=== PATIENT | male | born 1990 | race Two or more races ===

== ENCOUNTER 2020-08-22 10:11 | Outpatient (REF) | payer MEDICARE, MEDICAID, SELFPAY ==
[2020-08-22 11:16] LABS: MANUAL DIFF FLAG NO
[2020-08-22 11:31] LABS: Basophils Percent Auto 0.1 % (0-2); Hemoglobin 13.1 g/dl (14.0-18.0); Imm Gran Abs Auto 0.11 X10*3/uL (0.00-0.03); Imm Gran Pct Auto 1.5 % (0.0-0.4); Lymphocytes Absolute Auto 2.3 X10*3/uL (1.2-4.9); Lymphocytes Percent Auto 31.8 % (20-40); Mean Corpuscular Volume 84.4 fL (80-98); Mean Platelet Volume 9.8 fL (9.4-12.4); Monocytes Absolute Auto 0.7 X10*3/uL (0.1-1.2); Monocytes Percent Auto 9.1 % (2-11); Neutrophils Absolute Auto 4.2 X10*3/uL (2.0-8.3); Neutrophils Percent Auto 57.5 % (45-73); Platelet Count 246 X10*3/uL (160-400); Red Blood Count 4.86 X10*6/uL (4.60-5.80); Red Cell Distribution Width 12.2 % (11.0-16.0); White Blood Count 7.3 X10*3/uL (4.8-10.8)
== END 2020-08-22 10:12 | disposition home or self-care (01) ==
LOC: HO.LABR 10:11
PROVIDERS: PCP Internal Medicine; Visit Provider General Practice
DX: F20.9 Schizophrenia, unspecified (principal); Z79.899 Other long term (current) drug therapy
CPT/HCPCS: 36415; 85025

== ENCOUNTER 2020-09-20 10:02 | Outpatient (REF) | payer MEDICARE, MEDICAID, SELFPAY ==
[2020-09-20 10:57] LABS: MANUAL DIFF FLAG NO
[2020-09-20 11:01] LABS: Hematocrit 39.5 % (42-52); Hemoglobin 12.8 g/dl (14.0-18.0); Imm Gran Abs Auto 0.06 X10*3/uL (0.00-0.03); Imm Gran Pct Auto 0.8 % (0.0-0.4); Lymphocytes Absolute Auto 2.2 X10*3/uL (1.2-4.9); Lymphocytes Percent Auto 29.7 % (20-40); Mean Corpuscular HGB Conc 32.4 g/dl (31.0-36.0); Mean Corpuscular Hemoglobin 27.2 pg (27.0-33.0); Mean Platelet Volume 9.7 fL (9.4-12.4); Monocytes Absolute Auto 0.6 X10*3/uL (0.1-1.2); Monocytes Percent Auto 8.5 % (2-11); Neutrophils Absolute Auto 4.4 X10*3/uL (2.0-8.3); Platelet Count 249 X10*3/uL (160-400); Red Cell Distribution Width 12.1 % (11.0-16.0); White Blood Count 7.3 X10*3/uL (4.8-10.8)
== END 2020-09-20 10:03 | disposition home or self-care (01) ==
LOC: HO.LABR 10:02
PROVIDERS: Visit Provider General Practice
DX: F20.9 Schizophrenia, unspecified (principal); Z79.899 Other long term (current) drug therapy
CPT/HCPCS: 36415; 85025

== ENCOUNTER 2020-10-22 11:33 | Outpatient (REF) | payer MEDICARE, MEDICAID, SELFPAY ==
[2020-10-22 12:19] LABS: MANUAL DIFF FLAG NO
[2020-10-22 12:25] LABS: Basophils Percent Auto 0.1 % (0-2); Eosinophils Percent Auto 0.1 % (0-4); Hematocrit 40.1 % (42-52); Hemoglobin 12.9 g/dl (14.0-18.0); Imm Gran Abs Auto 0.15 X10*3/uL (0.00-0.03); Imm Gran Pct Auto 2.1 % (0.0-0.4); Lymphocytes Absolute Auto 2.3 X10*3/uL (1.2-4.9); Lymphocytes Percent Auto 32.6 % (20-40); Mean Corpuscular HGB Conc 32.2 g/dl (31.0-36.0); Mean Corpuscular Volume 83.9 fL (80-98); Mean Platelet Volume 9.9 fL (9.4-12.4); Monocytes Absolute Auto 0.7 X10*3/uL (0.1-1.2); Monocytes Percent Auto 10.1 % (2-11); Neutrophils Absolute Auto 3.9 X10*3/uL (2.0-8.3); Platelet Count 250 X10*3/uL (160-400); Red Blood Count 4.78 X10*6/uL (4.60-5.80); Red Cell Distribution Width 12.1 % (11.0-16.0); White Blood Count 7.1 X10*3/uL (4.8-10.8)
== END 2020-10-22 11:34 | disposition home or self-care (01) ==
LOC: HO.LABR 11:33
PROVIDERS: PCP General Practice; Visit Provider General Practice
DX: F20.9 Schizophrenia, unspecified (principal); Z79.899 Other long term (current) drug therapy
CPT/HCPCS: 36415; 85025

== ENCOUNTER 2020-11-19 12:13 | Outpatient (REF) | payer MEDICARE, MEDICAID, SELFPAY ==
[2020-11-19 12:56] LABS: Baso%MD 0.1 %; Eos%MD 0.1 %; Hematocrit 41.6 % (42-52); Hemoglobin 13.3 g/dl (14.0-18.0); IG%MD 1.9 %; Lymph%MD 35.9 %; Mean Corpuscular Hemoglobin 26.8 pg (27.0-33.0); Mean Corpuscular Volume 83.7 fL (80-98); Mean Platelet Volume 9.4 fL (9.4-12.4); Mono%MD 7.7 %; Neut%MD 54.3 %; Platelet Count 270 X10*3/uL (160-400); Red Blood Count 4.97 X10*6/uL (4.60-5.80); Red Cell Distribution Width 12.2 % (11.0-16.0); White Blood Count 8.4 X10*3/uL (4.8-10.8)
[2020-11-19 13:04] LABS: Ammonia 37 umol/L (13-55)
[2020-11-19 13:24] LABS: Valproate 64.9 mcg/mL (50.0-100.0)
[2020-11-19 13:32] LABS: Alanine Aminotransferase 28 U/L (0-40); Albumin Level 4.5 g/dL (3.5-5.0); Alkaline Phosphatase 52 U/L (39-117); Aspartate Amino Transferase 17 U/L (5-37); Bilirubin Direct < 0.2 mg/dL (0.0-0.5); Bilirubin Total 0.3 mg/dL (0.0-1.0); Total Protein 7.2 g/dL (6.5-8.0)
[2020-11-19 14:38] LABS: Band Neutrophils Percent 1 % (3-5); Lymphocytes Absolute Manual 3.3 X10*3/uL (0.6-4.8); Lymphocytes Percent Manual 39 % (20-40); Monocytes Absolute Manual 0.7 X10*3/uL (0.0-1.2); Monocytes Percent Manual 8 % (2-11); Neutrophils Absolute Manual 4.5 X10*3/uL (2.2-7.9); Neutrophils Percent Manual 52 % (45-73); Platelet Estimate NORMAL (NORMAL); Platelet Morphology Comment NORMAL; RBC Morphology NORMAL
== END 2020-11-19 12:14 | disposition home or self-care (01) ==
LOC: HO.LABR 12:13
PROVIDERS: Visit Provider Psychiatry & Neurology Child & Adolescent Psychiatry
DX: F20.9 Schizophrenia, unspecified (principal)
CPT/HCPCS: 36415; 80076; 80164; 82140; 85007; 85027

== ENCOUNTER 2020-11-27 12:41 | Outpatient (REF) | payer MEDICARE, MEDICAID, SELFPAY ==
[2020-11-27 13:22] LABS: Ammonia 55 umol/L (13-55)
[2020-11-27 13:30] LABS: Alanine Aminotransferase 19 U/L (0-40); Albumin Level 4.5 g/dL (3.5-5.0); Alkaline Phosphatase 48 U/L (39-117); Aspartate Amino Transferase 15 U/L (5-37); Bilirubin Direct < 0.2 mg/dL (0.0-0.5); Bilirubin Total 0.3 mg/dL (0.0-1.0)
== END 2020-11-27 12:42 | disposition home or self-care (01) ==
LOC: HO.LAB 12:41
PROVIDERS: Visit Provider General Practice
DX: F20.9 Schizophrenia, unspecified (principal); Z79.899 Other long term (current) drug therapy
CPT/HCPCS: 36415; 80076; 80164; 82140

== ENCOUNTER 2020-12-17 09:46 | Outpatient (REF) | payer MEDICARE, MEDICAID, SELFPAY ==
[2020-12-17 10:39] LABS: MANUAL DIFF FLAG NO
[2020-12-17 10:42] LABS: Basophils Percent Auto 0.1 % (0-2); Hematocrit 40.4 % (42-52); Imm Gran Abs Auto 0.12 X10*3/uL (0.00-0.03); Imm Gran Pct Auto 1.7 % (0.0-0.4); Lymphocytes Absolute Auto 2.5 X10*3/uL (1.2-4.9); Lymphocytes Percent Auto 34.4 % (20-40); Mean Corpuscular HGB Conc 32.2 g/dl (31.0-36.0); Mean Corpuscular Hemoglobin 26.9 pg (27.0-33.0); Mean Corpuscular Volume 83.5 fL (80-98); Mean Platelet Volume 9.8 fL (9.4-12.4); Monocytes Absolute Auto 0.6 X10*3/uL (0.1-1.2); Monocytes Percent Auto 7.8 % (2-11); Platelet Count 251 X10*3/uL (160-400); Red Blood Count 4.84 X10*6/uL (4.60-5.80); Red Cell Distribution Width 12.1 % (11.0-16.0); White Blood Count 7.2 X10*3/uL (4.8-10.8)
== END 2020-12-17 09:47 | disposition home or self-care (01) ==
LOC: HO.LABR 09:46
PROVIDERS: Visit Provider General Practice
DX: F20.9 Schizophrenia, unspecified (principal); Z79.899 Other long term (current) drug therapy
CPT/HCPCS: 36415; 85025

== ENCOUNTER 2021-01-15 10:47 | Outpatient (REF) | payer MEDICARE, MEDICAID, SELFPAY ==
[2021-01-15 11:42] LABS: MANUAL DIFF FLAG NO
[2021-01-15 11:53] LABS: Basophils Percent Auto 0.3 % (0-2); Hematocrit 40.8 % (42-52); Hemoglobin 13.2 g/dl (14.0-18.0); Imm Gran Abs Auto 0.13 X10*3/uL (0.00-0.03); Imm Gran Pct Auto 1.9 % (0.0-0.4); Lymphocytes Absolute Auto 2.1 X10*3/uL (1.2-4.9); Lymphocytes Percent Auto 30.8 % (20-40); Mean Corpuscular HGB Conc 32.4 g/dl (31.0-36.0); Mean Corpuscular Hemoglobin 26.8 pg (27.0-33.0); Mean Corpuscular Volume 82.9 fL (80-98); Mean Platelet Volume 9.7 fL (9.4-12.4); Monocytes Absolute Auto 0.6 X10*3/uL (0.1-1.2); Monocytes Percent Auto 8.2 % (2-11); Neutrophils Absolute Auto 4.1 X10*3/uL (2.0-8.3); Neutrophils Percent Auto 58.8 % (45-73); Platelet Count 266 X10*3/uL (160-400); Red Blood Count 4.92 X10*6/uL (4.60-5.80); Red Cell Distribution Width 12.3 % (11.0-16.0); White Blood Count 6.9 X10*3/uL (4.8-10.8)
== END 2021-01-15 10:48 | disposition home or self-care (01) ==
LOC: HO.LABR 10:47
PROVIDERS: PCP General Practice; Visit Provider General Practice
DX: F20.9 Schizophrenia, unspecified (principal); Z79.899 Other long term (current) drug therapy
CPT/HCPCS: 36415; 85025

== ENCOUNTER 2021-02-11 09:55 | Outpatient (REF) | payer MEDICARE, MEDICAID, SELFPAY ==
[2021-02-11 10:54] LABS: MANUAL DIFF FLAG NO
[2021-02-11 11:11] LABS: Basophils Percent Auto 0.1 % (0-2); Hematocrit 42.3 % (42-52); Hemoglobin 13.5 g/dl (14.0-18.0); Imm Gran Pct Auto 1.3 % (0.0-0.4); Lymphocytes Absolute Auto 2.7 X10*3/uL (1.2-4.9); Lymphocytes Percent Auto 33.8 % (20-40); Mean Corpuscular HGB Conc 31.9 g/dl (31.0-36.0); Mean Corpuscular Hemoglobin 26.7 pg (27.0-33.0); Mean Corpuscular Volume 83.6 fL (80-98); Mean Platelet Volume 9.8 fL (9.4-12.4); Monocytes Absolute Auto 0.7 X10*3/uL (0.1-1.2); Neutrophils Absolute Auto 4.4 X10*3/uL (2.0-8.3); Neutrophils Percent Auto 55.8 % (45-73); Platelet Count 279 X10*3/uL (160-400); Red Blood Count 5.06 X10*6/uL (4.60-5.80); Red Cell Distribution Width 12.4 % (11.0-16.0); White Blood Count 7.9 X10*3/uL (4.8-10.8)
== END 2021-02-11 09:56 | disposition home or self-care (01) ==
LOC: HO.LABR 09:55
PROVIDERS: PCP General Practice; Visit Provider General Practice
DX: F20.9 Schizophrenia, unspecified (principal); Z79.899 Other long term (current) drug therapy
CPT/HCPCS: 36415; 85025

== ENCOUNTER 2021-03-11 10:06 | Outpatient (REF) | payer MEDICARE, MEDICAID, SELFPAY ==
[2021-03-11 11:06] LABS: MANUAL DIFF FLAG NO
[2021-03-11 11:13] LABS: Basophils Percent Auto 0.1 % (0-2); Hemoglobin 12.9 g/dl (14.0-18.0); Imm Gran Abs Auto 0.11 X10*3/uL (0.00-0.03); Imm Gran Pct Auto 1.5 % (0.0-0.4); Lymphocytes Absolute Auto 2.4 X10*3/uL (1.2-4.9); Lymphocytes Percent Auto 33.5 % (20-40); Mean Corpuscular HGB Conc 31.5 g/dl (31.0-36.0); Mean Corpuscular Hemoglobin 26.4 pg (27.0-33.0); Mean Corpuscular Volume 83.8 fL (80-98); Mean Platelet Volume 9.6 fL (9.4-12.4); Monocytes Absolute Auto 0.6 X10*3/uL (0.1-1.2); Monocytes Percent Auto 8.1 % (2-11); Neutrophils Percent Auto 56.8 % (45-73); Platelet Count 264 X10*3/uL (160-400); Red Blood Count 4.89 X10*6/uL (4.60-5.80); Red Cell Distribution Width 12.6 % (11.0-16.0); White Blood Count 7.1 X10*3/uL (4.8-10.8)
== END 2021-03-11 10:07 | disposition home or self-care (01) ==
LOC: HO.LABR 10:06
PROVIDERS: PCP General Practice; Visit Provider General Practice
DX: F20.9 Schizophrenia, unspecified (principal); Z79.899 Other long term (current) drug therapy
CPT/HCPCS: 36415; 85025

== ENCOUNTER 2021-04-07 10:39 | Outpatient (REF) | payer MEDICARE, MEDICAID, SELFPAY ==
[2021-04-07 11:33] LABS: MANUAL DIFF FLAG NO
[2021-04-07 11:37] LABS: Basophils Percent Auto 0.1 % (0-2); Hemoglobin 13.2 g/dl (14.0-18.0); Imm Gran Abs Auto 0.17 X10*3/uL (0.00-0.03); Imm Gran Pct Auto 2.3 % (0.0-0.4); Lymphocytes Absolute Auto 2.7 X10*3/uL (1.2-4.9); Lymphocytes Percent Auto 35.4 % (20-40); Mean Corpuscular HGB Conc 32.2 g/dl (31.0-36.0); Mean Corpuscular Volume 83.8 fL (80-98); Mean Platelet Volume 9.7 fL (9.4-12.4); Monocytes Absolute Auto 0.7 X10*3/uL (0.1-1.2); Monocytes Percent Auto 8.6 % (2-11); Neutrophils Absolute Auto 4.1 X10*3/uL (2.0-8.3); Neutrophils Percent Auto 53.6 % (45-73); Platelet Count 260 X10*3/uL (160-400); Red Blood Count 4.89 X10*6/uL (4.60-5.80); Red Cell Distribution Width 12.4 % (11.0-16.0); White Blood Count 7.6 X10*3/uL (4.8-10.8)
== END 2021-04-07 10:40 | disposition home or self-care (01) ==
LOC: HO.LABR 10:39
PROVIDERS: PCP General Practice; Visit Provider General Practice
DX: F20.9 Schizophrenia, unspecified (principal); Z79.899 Other long term (current) drug therapy
CPT/HCPCS: 36415; 85025

== ENCOUNTER 2021-05-07 10:31 | Outpatient (REF) | payer MEDICARE, MEDICAID, SELFPAY ==
[2021-05-07 11:43] LABS: MANUAL DIFF FLAG NO
[2021-05-07 12:04] LABS: Basophils Percent Auto 0.1 % (0-2); Eosinophils Percent Auto 0.1 % (0-4); Hematocrit 41.3 % (42-52); Hemoglobin 13.3 g/dl (14.0-18.0); Imm Gran Abs Auto 0.12 X10*3/uL (0.00-0.03); Imm Gran Pct Auto 1.7 % (0.0-0.4); Lymphocytes Absolute Auto 2.6 X10*3/uL (1.2-4.9); Lymphocytes Percent Auto 35.9 % (20-40); Mean Corpuscular HGB Conc 32.2 g/dl (31.0-36.0); Mean Corpuscular Hemoglobin 26.7 pg (27.0-33.0); Mean Corpuscular Volume 82.9 fL (80-98); Mean Platelet Volume 9.6 fL (9.4-12.4); Monocytes Absolute Auto 0.7 X10*3/uL (0.1-1.2); Monocytes Percent Auto 9.4 % (2-11); Neutrophils Absolute Auto 3.8 X10*3/uL (2.0-8.3); Neutrophils Percent Auto 52.8 % (45-73); Platelet Count 261 X10*3/uL (160-400); Red Blood Count 4.98 X10*6/uL (4.60-5.80); Red Cell Distribution Width 12.3 % (11.0-16.0); White Blood Count 7.2 X10*3/uL (4.8-10.8)
[2021-05-11 15:11] LABS: Clozapine (Clozaril) 466 mcg/L; Norclozapine 162 mcg/L (25-400)
== END 2021-05-07 10:32 | disposition home or self-care (01) ==
LOC: HO.LABR 10:31
PROVIDERS: Visit Provider General Practice
DX: F20.9 Schizophrenia, unspecified (principal); Z79.899 Other long term (current) drug therapy
CPT/HCPCS: 36415; 80159; 85025

== ENCOUNTER 2021-05-29 13:15 | Outpatient (REF) | payer MEDICARE, MEDICAID, SELFPAY ==
[2021-05-29 13:45] LABS: MANUAL DIFF FLAG NO
[2021-05-29 14:02] LABS: Basophils Percent Auto 0.1 % (0-2); Eosinophils Percent Auto 0.1 % (0-4); Hematocrit 40.3 % (42-52); Hemoglobin 12.9 g/dl (14.0-18.0); Imm Gran Abs Auto 0.12 X10*3/uL (0.00-0.03); Imm Gran Pct Auto 1.6 % (0.0-0.4); Lymphocytes Absolute Auto 2.5 X10*3/uL (1.2-4.9); Lymphocytes Percent Auto 33.8 % (20-40); Mean Corpuscular Hemoglobin 26.5 pg (27.0-33.0); Mean Corpuscular Volume 82.9 fL (80-98); Mean Platelet Volume 9.7 fL (9.4-12.4); Monocytes Absolute Auto 0.6 X10*3/uL (0.1-1.2); Monocytes Percent Auto 7.6 % (2-11); Neutrophils Absolute Auto 4.3 X10*3/uL (2.0-8.3); Neutrophils Percent Auto 56.8 % (45-73); Platelet Count 262 X10*3/uL (160-400); Red Blood Count 4.86 X10*6/uL (4.60-5.80); Red Cell Distribution Width 12.2 % (11.0-16.0); White Blood Count 7.5 X10*3/uL (4.8-10.8)
== END 2021-05-29 13:16 | disposition home or self-care (01) ==
LOC: HO.LABR 13:15
PROVIDERS: PCP Internal Medicine; Visit Provider General Practice
DX: E20.9 Hypoparathyroidism, unspecified (principal); Z79.899 Other long term (current) drug therapy
CPT/HCPCS: 36415; 85025

== ENCOUNTER 2021-06-26 10:57 | Outpatient (REF) | payer MEDICARE, MEDICAID, SELFPAY ==
[2021-06-26 11:22] LABS: MANUAL DIFF FLAG NO
[2021-06-26 11:33] LABS: Basophils Percent Auto 0.2 % (0-2); Hematocrit 37.6 % (42-52); Hemoglobin 12.3 g/dl (14.0-18.0); Imm Gran Abs Auto 0.08 X10*3/uL (0.00-0.03); Imm Gran Pct Auto 1.2 % (0.0-0.4); Lymphocytes Absolute Auto 2.1 X10*3/uL (1.2-4.9); Lymphocytes Percent Auto 32.3 % (20-40); Mean Corpuscular HGB Conc 32.7 g/dl (31.0-36.0); Mean Corpuscular Volume 82.6 fL (80-98); Mean Platelet Volume 9.4 fL (9.4-12.4); Monocytes Absolute Auto 0.5 X10*3/uL (0.1-1.2); Monocytes Percent Auto 8.2 % (2-11); Neutrophils Absolute Auto 3.8 X10*3/uL (2.0-8.3); Neutrophils Percent Auto 58.1 % (45-73); Platelet Count 239 X10*3/uL (160-400); Red Blood Count 4.55 X10*6/uL (4.60-5.80); Red Cell Distribution Width 12.4 % (11.0-16.0); White Blood Count 6.5 X10*3/uL (4.8-10.8)
[2021-07-01 07:52] LABS: Clozapine (Clozaril) 461 mcg/L; Norclozapine 150 mcg/L (25-400)
== END 2021-06-26 10:58 | disposition home or self-care (01) ==
LOC: HO.LABR 10:57
PROVIDERS: Visit Provider General Practice
DX: F20.9 Schizophrenia, unspecified (principal); Z79.899 Other long term (current) drug therapy
CPT/HCPCS: 36415; 80159; 85025

== ENCOUNTER 2021-07-25 09:46 | Outpatient (REF) | payer MEDICARE, MEDICAID, SELFPAY ==
[2021-07-25 16:03] LABS: MANUAL DIFF FLAG NO
[2021-07-25 16:13] LABS: Basophils Percent Auto 0.1 % (0-2); Hematocrit 40.4 % (42-52); Imm Gran Abs Auto 0.13 X10*3/uL (0.00-0.03); Imm Gran Pct Auto 1.4 % (0.0-0.4); Lymphocytes Absolute Auto 2.5 X10*3/uL (1.2-4.9); Lymphocytes Percent Auto 25.8 % (20-40); Mean Corpuscular HGB Conc 32.2 g/dl (31.0-36.0); Mean Corpuscular Hemoglobin 26.3 pg (27.0-33.0); Mean Corpuscular Volume 81.8 fL (80-98); Mean Platelet Volume 9.2 fL (9.4-12.4); Monocytes Absolute Auto 0.9 X10*3/uL (0.1-1.2); Monocytes Percent Auto 9.3 % (2-11); Neutrophils Percent Auto 63.4 % (45-73); Platelet Count 276 X10*3/uL (160-400); Red Blood Count 4.94 X10*6/uL (4.60-5.80); Red Cell Distribution Width 12.4 % (11.0-16.0); White Blood Count 9.5 X10*3/uL (4.8-10.8)
== END 2021-07-25 09:47 | disposition home or self-care (01) ==
LOC: HO.LABR 09:46
PROVIDERS: PCP General Practice; Visit Provider General Practice
DX: F20.9 Schizophrenia, unspecified (principal); Z79.899 Other long term (current) drug therapy
CPT/HCPCS: 36415; 85025

== ENCOUNTER 2021-08-20 11:44 | Outpatient (REF) | payer MEDICARE, MEDICAID, SELFPAY ==
[2021-08-20 12:04] LABS: MANUAL DIFF FLAG NO
[2021-08-20 12:21] LABS: Basophils Percent Auto 0.1 % (0-2); Eosinophils Percent Auto 0.1 % (0-4); Hematocrit 42.3 % (42-52); Hemoglobin 13.5 g/dl (14.0-18.0); Imm Gran Abs Auto 0.09 X10*3/uL (0.00-0.03); Imm Gran Pct Auto 1.3 % (0.0-0.4); Lymphocytes Absolute Auto 2.2 X10*3/uL (1.2-4.9); Lymphocytes Percent Auto 31.9 % (20-40); Mean Corpuscular HGB Conc 31.9 g/dl (31.0-36.0); Mean Corpuscular Hemoglobin 26.1 pg (27.0-33.0); Mean Corpuscular Volume 81.7 fL (80-98); Mean Platelet Volume 9.5 fL (9.4-12.4); Monocytes Absolute Auto 0.6 X10*3/uL (0.1-1.2); Monocytes Percent Auto 8.3 % (2-11); Neutrophils Absolute Auto 4.1 X10*3/uL (2.0-8.3); Neutrophils Percent Auto 58.3 % (45-73); Platelet Count 255 X10*3/uL (160-400); Red Blood Count 5.18 X10*6/uL (4.60-5.80); Red Cell Distribution Width 12.3 % (11.0-16.0)
== END 2021-08-20 11:45 | disposition home or self-care (01) ==
LOC: HO.LABR 11:44
PROVIDERS: PCP General Practice; Visit Provider General Practice
DX: F20.9 Schizophrenia, unspecified (principal); Z79.899 Other long term (current) drug therapy
CPT/HCPCS: 36415; 85025

== ENCOUNTER 2021-08-26 12:42 | Outpatient (REF) | payer MEDICARE, MEDICAID, SELFPAY ==
[2021-08-26 13:10] LABS: MANUAL DIFF FLAG NO
[2021-08-26 13:30] LABS: Basophils Percent Auto 0.1 % (0-2); Eosinophils Percent Auto 0.1 % (0-4); Hematocrit 40.5 % (42-52); Hemoglobin 13.4 g/dl (14.0-18.0); Imm Gran Abs Auto 0.17 X10*3/uL (0.00-0.03); Lymphocytes Absolute Auto 2.6 X10*3/uL (1.2-4.9); Lymphocytes Percent Auto 31.6 % (20-40); Mean Corpuscular HGB Conc 33.1 g/dl (31.0-36.0); Mean Corpuscular Hemoglobin 26.6 pg (27.0-33.0); Mean Corpuscular Volume 80.4 fL (80-98); Mean Platelet Volume 9.8 fL (9.4-12.4); Monocytes Absolute Auto 0.7 X10*3/uL (0.1-1.2); Monocytes Percent Auto 8.1 % (2-11); Neutrophils Absolute Auto 4.9 X10*3/uL (2.0-8.3); Neutrophils Percent Auto 58.1 % (45-73); Platelet Count 266 X10*3/uL (160-400); Red Blood Count 5.04 X10*6/uL (4.60-5.80); Red Cell Distribution Width 12.5 % (11.0-16.0); White Blood Count 8.4 X10*3/uL (4.8-10.8)
== END 2021-08-26 12:43 | disposition home or self-care (01) ==
LOC: HO.LABR 12:42
PROVIDERS: Visit Provider General Practice
DX: F20.9 Schizophrenia, unspecified (principal); Z79.899 Other long term (current) drug therapy
CPT/HCPCS: 36415; 85025

== ENCOUNTER 2021-09-23 09:58 | Outpatient (REF) | payer MEDICARE, MEDICAID, SELFPAY ==
[2021-09-23 10:08] LABS: MANUAL DIFF FLAG NO
[2021-09-23 10:26] LABS: Basophils Percent Auto 0.1 % (0-2); Hematocrit 40.5 % (42.0-52.0); Imm Gran Abs Auto 0.14 X10*3/uL (0.00-0.03); Imm Gran Pct Auto 1.8 % (0.0-0.4); Lymphocytes Absolute Auto 2.3 X10*3/uL (1.2-4.9); Lymphocytes Percent Auto 30.1 % (20-40); Mean Corpuscular HGB Conc 32.1 g/dl (31.0-36.0); Mean Corpuscular Hemoglobin 26.7 pg (27.0-33.0); Mean Corpuscular Volume 83.3 fL (80.0-98.0); Mean Platelet Volume 9.5 fL (9.4-12.4); Monocytes Absolute Auto 0.6 X10*3/uL (0.1-1.2); Monocytes Percent Auto 8.1 % (2-11); Neutrophils Absolute Auto 4.7 x10*3/uL (2.0-8.3); Neutrophils Percent Auto 59.9 % (45-73); Platelet Count 265 X10*3/uL (160-400); Red Blood Count 4.86 X10*6/uL (4.60-5.80); Red Cell Distribution Width 12.8 % (11.0-16.0); White Blood Count 7.8 X10*3/uL (4.8-10.8)
== END 2021-09-23 09:59 | disposition home or self-care (01) ==
LOC: HO.LABR 09:58
PROVIDERS: Visit Provider General Practice
DX: F20.9 Schizophrenia, unspecified (principal); Z79.899 Other long term (current) drug therapy
CPT/HCPCS: 36415; 85025

== ENCOUNTER 2021-10-18 10:49 | Outpatient (REF) | payer MEDICARE, MEDICAID, SELFPAY ==
[2021-10-18 10:59] LABS: MANUAL DIFF FLAG NO
[2021-10-18 11:49] LABS: Basophils Percent Auto 0.1 % (0-2); Eosinophils Percent Auto 0.1 % (0-4); Hemoglobin 13.4 g/dl (14.0-18.0); Imm Gran Abs Auto 0.16 X10*3/uL (0.00-0.03); Imm Gran Pct Auto 2.2 % (0.0-0.4); Lymphocytes Absolute Auto 2.5 X10*3/uL (1.2-4.9); Lymphocytes Percent Auto 34.4 % (20-40); Mean Corpuscular HGB Conc 31.9 g/dl (31.0-36.0); Mean Corpuscular Hemoglobin 26.9 pg (27.0-33.0); Mean Corpuscular Volume 84.2 fL (80.0-98.0); Mean Platelet Volume 9.6 fL (9.4-12.4); Monocytes Absolute Auto 0.6 X10*3/uL (0.1-1.2); Monocytes Percent Auto 7.6 % (2-11); Neutrophils Absolute Auto 4.1 x10*3/uL (2.0-8.3); Neutrophils Percent Auto 55.6 % (45-73); Platelet Count 274 X10*3/uL (160-400); Red Blood Count 4.99 X10*6/uL (4.60-5.80); Red Cell Distribution Width 12.4 % (11.0-16.0); White Blood Count 7.4 X10*3/uL (4.8-10.8)
== END 2021-10-18 10:50 | disposition home or self-care (01) ==
LOC: HO.LABR 10:49
PROVIDERS: PCP General Practice; Visit Provider General Practice
DX: F20.9 Schizophrenia, unspecified (principal); Z79.899 Other long term (current) drug therapy
CPT/HCPCS: 36415; 85025

== ENCOUNTER 2021-11-06 10:42 | Outpatient (REF) | payer MEDICARE, MEDICAID, SELFPAY ==
[2021-11-06 11:01] LABS: MANUAL DIFF FLAG NO
[2021-11-06 11:33] LABS: Basophils Percent Auto 0.1 % (0-2); Eosinophils Percent Auto 0.1 % (0-4); Hematocrit 41.5 % (42.0-52.0); Hemoglobin 13.3 g/dl (14.0-18.0); Imm Gran Abs Auto 0.14 X10*3/uL (0.00-0.03); Imm Gran Pct Auto 1.8 % (0.0-0.4); Lymphocytes Absolute Auto 1.4 X10*3/uL (1.2-4.9); Mean Corpuscular Hemoglobin 26.9 pg (27.0-33.0); Mean Corpuscular Volume 83.8 fL (80.0-98.0); Mean Platelet Volume 9.4 fL (9.4-12.4); Monocytes Absolute Auto 0.9 X10*3/uL (0.1-1.2); Monocytes Percent Auto 11.1 % (2-11); Neutrophils Absolute Auto 5.6 x10*3/uL (2.0-8.3); Neutrophils Percent Auto 69.9 % (45-73); Platelet Count 221 X10*3/uL (160-400); Red Blood Count 4.95 X10*6/uL (4.60-5.80); Red Cell Distribution Width 12.4 % (11.0-16.0)
== END 2021-11-06 10:43 | disposition home or self-care (01) ==
LOC: HO.LABR 10:42
PROVIDERS: PCP General Practice; Visit Provider General Practice
DX: F20.9 Schizophrenia, unspecified (principal); Z79.899 Other long term (current) drug therapy
CPT/HCPCS: 36415; 85025

== ENCOUNTER 2021-11-21 10:42 | Outpatient (REF) | payer MEDICARE, MEDICAID, SELFPAY ==
[2021-11-21 10:58] LABS: MANUAL DIFF FLAG NO
[2021-11-21 11:28] LABS: Basophils Percent Auto 0.1 % (0-2); Eosinophils Percent Auto 0.1 % (0-4); Hematocrit 41.9 % (42.0-52.0); Hemoglobin 13.4 g/dl (14.0-18.0); Imm Gran Abs Auto 0.13 X10*3/uL (0.00-0.03); Imm Gran Pct Auto 1.6 % (0.0-0.4); Lymphocytes Absolute Auto 2.6 X10*3/uL (1.2-4.9); Lymphocytes Percent Auto 31.6 % (20-40); Mean Corpuscular Volume 84.3 fL (80.0-98.0); Mean Platelet Volume 9.5 fL (9.4-12.4); Monocytes Absolute Auto 0.8 X10*3/uL (0.1-1.2); Monocytes Percent Auto 9.6 % (2-11); Neutrophils Absolute Auto 4.7 x10*3/uL (2.0-8.3); Platelet Count 336 X10*3/uL (160-400); Red Blood Count 4.97 X10*6/uL (4.60-5.80); Red Cell Distribution Width 12.2 % (11.0-16.0); White Blood Count 8.2 X10*3/uL (4.8-10.8)
== END 2021-11-21 10:43 | disposition home or self-care (01) ==
LOC: HO.LABR 10:42
PROVIDERS: PCP General Practice; Visit Provider General Practice
DX: F20.9 Schizophrenia, unspecified (principal); Z79.899 Other long term (current) drug therapy
CPT/HCPCS: 36415; 85025

== ENCOUNTER 2021-12-16 09:57 | Outpatient (REF) | payer MEDICARE, MEDICAID, SELFPAY ==
[2021-12-16 10:22] LABS: MANUAL DIFF FLAG NO
[2021-12-16 11:17] LABS: Basophils Percent Auto 0.2 % (0-2); Eosinophils Percent Auto 0.2 % (0-4); Hemoglobin 12.8 g/dl (14.0-18.0); Imm Gran Abs Auto 0.32 X10*3/uL (0.00-0.03); Imm Gran Pct Auto 3.8 % (0.0-0.4); Lymphocytes Absolute Auto 2.7 X10*3/uL (1.2-4.9); Lymphocytes Percent Auto 31.6 % (20-40); Mean Corpuscular Hemoglobin 27.1 pg (27.0-33.0); Mean Corpuscular Volume 84.6 fL (80.0-98.0); Mean Platelet Volume 9.8 fL (9.4-12.4); Monocytes Absolute Auto 0.8 X10*3/uL (0.1-1.2); Monocytes Percent Auto 9.7 % (2-11); Neutrophils Absolute Auto 4.6 x10*3/uL (2.0-8.3); Neutrophils Percent Auto 54.5 % (45-73); Platelet Count 268 X10*3/uL (160-400); Red Blood Count 4.73 X10*6/uL (4.60-5.80); Red Cell Distribution Width 12.6 % (11.0-16.0); White Blood Count 8.5 X10*3/uL (4.8-10.8)
== END 2021-12-16 09:58 | disposition home or self-care (01) ==
LOC: HO.LABR 09:57
PROVIDERS: PCP General Practice; Visit Provider General Practice
DX: F20.9 Schizophrenia, unspecified (principal); Z79.899 Other long term (current) drug therapy
CPT/HCPCS: 36415; 85025

== ENCOUNTER 2022-01-14 10:21 | Outpatient (REF) | payer MEDICARE, MEDICAID, SELFPAY ==
[2022-01-14 10:42] LABS: MANUAL DIFF FLAG NO
[2022-01-14 11:02] LABS: Basophils Percent Auto 0.3 % (0-2); Eosinophils Percent Auto 0.1 % (0-4); Hematocrit 40.3 % (42.0-52.0); Hemoglobin 12.7 g/dl (14.0-18.0); Imm Gran Abs Auto 0.09 X10*3/uL (0.00-0.03); Imm Gran Pct Auto 1.2 % (0.0-0.4); Lymphocytes Absolute Auto 2.5 X10*3/uL (1.2-4.9); Lymphocytes Percent Auto 33.2 % (20-40); Mean Corpuscular HGB Conc 31.5 g/dl (31.0-36.0); Mean Corpuscular Hemoglobin 26.7 pg (27.0-33.0); Mean Corpuscular Volume 84.7 fL (80.0-98.0); Mean Platelet Volume 9.4 fL (9.4-12.4); Monocytes Absolute Auto 0.6 X10*3/uL (0.1-1.2); Monocytes Percent Auto 7.8 % (2-11); Neutrophils Absolute Auto 4.4 x10*3/uL (2.0-8.3); Neutrophils Percent Auto 57.4 % (45-73); Platelet Count 273 X10*3/uL (160-400); Red Blood Count 4.76 X10*6/uL (4.60-5.80); Red Cell Distribution Width 12.3 % (11.0-16.0); White Blood Count 7.7 X10*3/uL (4.8-10.8)
== END 2022-01-14 10:22 | disposition home or self-care (01) ==
LOC: HO.LABR 10:21
PROVIDERS: PCP General Practice; Visit Provider General Practice
DX: F20.9 Schizophrenia, unspecified (principal); Z79.899 Other long term (current) drug therapy
CPT/HCPCS: 36415; 85025

== ENCOUNTER 2022-02-04 10:36 | Outpatient (REF) | payer MEDICARE, MEDICAID, SELFPAY ==
[2022-02-04 11:01] LABS: MANUAL DIFF FLAG NO
[2022-02-04 11:59] LABS: Basophils Percent Auto 0.3 % (0-2); Eosinophils Percent Auto 0.3 % (0-4); Hematocrit 41.3 % (42.0-52.0); Hemoglobin 13.1 g/dl (14.0-18.0); Imm Gran Abs Auto 0.08 X10*3/uL (0.00-0.03); Imm Gran Pct Auto 1.1 % (0.0-0.4); Lymphocytes Absolute Auto 2.7 X10*3/uL (1.2-4.9); Lymphocytes Percent Auto 38.1 % (20-40); Mean Corpuscular HGB Conc 31.7 g/dl (31.0-36.0); Mean Corpuscular Hemoglobin 26.6 pg (27.0-33.0); Mean Corpuscular Volume 83.9 fL (80.0-98.0); Mean Platelet Volume 9.8 fL (9.4-12.4); Monocytes Absolute Auto 0.5 X10*3/uL (0.1-1.2); Monocytes Percent Auto 6.5 % (2-11); Neutrophils Absolute Auto 3.9 x10*3/uL (2.0-8.3); Neutrophils Percent Auto 53.7 % (45-73); Platelet Count 271 X10*3/uL (160-400); Red Blood Count 4.92 X10*6/uL (4.60-5.80); Red Cell Distribution Width 12.2 % (11.0-16.0); White Blood Count 7.2 X10*3/uL (4.8-10.8)
== END 2022-02-04 10:37 | disposition home or self-care (01) ==
LOC: HO.LABR 10:36
PROVIDERS: PCP General Practice; Visit Provider General Practice
DX: F20.9 Schizophrenia, unspecified (principal); Z79.899 Other long term (current) drug therapy
CPT/HCPCS: 36415; 85025

== ENCOUNTER 2022-02-11 13:46 | Outpatient (REF) | payer MEDICARE, MEDICAID, SELFPAY ==
[2022-02-11 13:56] LABS: MANUAL DIFF FLAG NO
[2022-02-11 14:57] LABS: Basophils Percent Auto 0.2 % (0-2); Eosinophils Percent Auto 0.2 % (0-4); Hematocrit 41.1 % (42.0-52.0); Hemoglobin 13.1 g/dl (14.0-18.0); Imm Gran Abs Auto 0.08 X10*3/uL (0.00-0.03); Imm Gran Pct Auto 0.9 % (0.0-0.4); Lymphocytes Absolute Auto 2.7 X10*3/uL (1.2-4.9); Lymphocytes Percent Auto 31.9 % (20-40); Mean Corpuscular HGB Conc 31.9 g/dl (31.0-36.0); Mean Corpuscular Hemoglobin 26.6 pg (27.0-33.0); Mean Corpuscular Volume 83.4 fL (80.0-98.0); Mean Platelet Volume 9.9 fL (9.4-12.4); Monocytes Absolute Auto 0.7 X10*3/uL (0.1-1.2); Monocytes Percent Auto 7.9 % (2-11); Neutrophils Percent Auto 58.9 % (45-73); Platelet Count 262 X10*3/uL (160-400); Red Blood Count 4.93 X10*6/uL (4.60-5.80); Red Cell Distribution Width 12.5 % (11.0-16.0); White Blood Count 8.5 X10*3/uL (4.8-10.8)
== END 2022-02-11 13:47 | disposition home or self-care (01) ==
LOC: HO.LABR 13:46
PROVIDERS: PCP General Practice; Visit Provider General Practice
DX: F20.9 Schizophrenia, unspecified (principal); Z79.899 Other long term (current) drug therapy
CPT/HCPCS: 36415; 85025

== ENCOUNTER 2022-03-11 14:48 | Outpatient (REF) | payer MEDICARE, MEDICAID, SELFPAY ==
[2022-03-11 15:00] LABS: MANUAL DIFF FLAG NO
[2022-03-11 15:32] LABS: Basophils Percent Auto 0.1 % (0-2); Eosinophils Percent Auto 0.5 % (0-4); Hematocrit 39.5 % (42.0-52.0); Hemoglobin 12.5 g/dl (14.0-18.0); Imm Gran Abs Auto 0.07 X10*3/uL (0.00-0.03); Imm Gran Pct Auto 0.8 % (0.0-0.4); Lymphocytes Absolute Auto 2.8 X10*3/uL (1.2-4.9); Lymphocytes Percent Auto 31.3 % (20-40); Mean Corpuscular HGB Conc 31.6 g/dl (31.0-36.0); Mean Corpuscular Hemoglobin 26.2 pg (27.0-33.0); Mean Corpuscular Volume 82.8 fL (80.0-98.0); Mean Platelet Volume 9.6 fL (9.4-12.4); Monocytes Absolute Auto 0.7 X10*3/uL (0.1-1.2); Monocytes Percent Auto 7.9 % (2-11); Neutrophils Absolute Auto 5.2 x10*3/uL (2.0-8.3); Neutrophils Percent Auto 59.4 % (45-73); Platelet Count 272 X10*3/uL (160-400); Red Blood Count 4.77 X10*6/uL (4.60-5.80); Red Cell Distribution Width 12.3 % (11.0-16.0); White Blood Count 8.8 X10*3/uL (4.8-10.8)
== END 2022-03-11 14:49 | disposition home or self-care (01) ==
LOC: HO.LABR 14:48
PROVIDERS: PCP Internal Medicine; Visit Provider General Practice
DX: F20.9 Schizophrenia, unspecified (principal); Z79.899 Other long term (current) drug therapy
CPT/HCPCS: 36415; 85025

== ENCOUNTER 2022-04-09 10:41 | Outpatient (REF) | payer MEDICARE, MEDICAID, SELFPAY ==
[2022-04-09 10:59] LABS: MANUAL DIFF FLAG NO
[2022-04-09 11:39] LABS: Basophils Percent Auto 0.3 % (0-2); Eosinophils Absolute Auto 0.1 X10*3/uL (0.0-0.4); Eosinophils Percent Auto 0.9 % (0-4); Hematocrit 40.6 % (42.0-52.0); Hemoglobin 12.8 g/dl (14.0-18.0); Imm Gran Abs Auto 0.08 X10*3/uL (0.00-0.03); Imm Gran Pct Auto 1.1 % (0.0-0.4); Lymphocytes Absolute Auto 2.6 X10*3/uL (1.2-4.9); Lymphocytes Percent Auto 35.4 % (20-40); Mean Corpuscular HGB Conc 31.5 g/dl (31.0-36.0); Mean Corpuscular Hemoglobin 26.2 pg (27.0-33.0); Mean Platelet Volume 9.7 fL (9.4-12.4); Monocytes Absolute Auto 0.7 X10*3/uL (0.1-1.2); Monocytes Percent Auto 9.4 % (2-11); Neutrophils Absolute Auto 3.9 x10*3/uL (2.0-8.3); Neutrophils Percent Auto 52.9 % (45-73); Platelet Count 250 X10*3/uL (160-400); Red Blood Count 4.89 X10*6/uL (4.60-5.80); Red Cell Distribution Width 12.5 % (11.0-16.0); White Blood Count 7.4 X10*3/uL (4.8-10.8)
== END 2022-04-09 10:42 | disposition home or self-care (01) ==
LOC: HO.LABR 10:41
PROVIDERS: PCP Internal Medicine; Visit Provider Registered Nurse
DX: Z79.899 Other long term (current) drug therapy (principal)
CPT/HCPCS: 36415; 85025

== ENCOUNTER 2022-05-06 12:20 | Outpatient (REF) | payer MEDICARE, MEDICAID, SELFPAY ==
[2022-05-06 12:38] LABS: MANUAL DIFF FLAG NO
[2022-05-06 13:23] LABS: Basophils Percent Auto 0.1 % (0-2); Eosinophils Percent Auto 0.4 % (0-4); Hematocrit 39.7 % (42.0-52.0); Hemoglobin 13.1 g/dl (14.0-18.0); Imm Gran Abs Auto 0.05 X10*3/uL (0.00-0.03); Imm Gran Pct Auto 0.6 % (0.0-0.4); Lymphocytes Absolute Auto 2.8 X10*3/uL (1.2-4.9); Lymphocytes Percent Auto 30.8 % (20-40); Mean Corpuscular Hemoglobin 27.3 pg (27.0-33.0); Mean Corpuscular Volume 82.9 fL (80.0-98.0); Monocytes Absolute Auto 0.5 X10*3/uL (0.1-1.2); Monocytes Percent Auto 5.7 % (2-11); Neutrophils Absolute Auto 5.6 x10*3/uL (2.0-8.3); Neutrophils Percent Auto 62.4 % (45-73); Platelet Count 262 X10*3/uL (160-400); Red Blood Count 4.79 X10*6/uL (4.60-5.80); Red Cell Distribution Width 12.4 % (11.0-16.0); White Blood Count 8.9 X10*3/uL (4.8-10.8)
== END 2022-05-06 12:21 | disposition home or self-care (01) ==
LOC: HO.LABR 12:20
PROVIDERS: Visit Provider Registered Nurse
DX: Z79.899 Other long term (current) drug therapy (principal)
CPT/HCPCS: 36415; 85025

== ENCOUNTER 2022-05-27 12:22 | Outpatient (REF) | payer MEDICARE, MEDICAID, SELFPAY ==
[2022-05-27 12:34] LABS: MANUAL DIFF FLAG NO
[2022-05-27 13:16] LABS: Basophils Percent Auto 0.1 % (0-2); Eosinophils Percent Auto 0.5 % (0-4); Hematocrit 39.9 % (42.0-52.0); Hemoglobin 12.8 g/dl (14.0-18.0); Imm Gran Abs Auto 0.07 X10*3/uL (0.00-0.03); Imm Gran Pct Auto 0.8 % (0.0-0.4); Lymphocytes Absolute Auto 2.5 X10*3/uL (1.2-4.9); Lymphocytes Percent Auto 30.1 % (20-40); Mean Corpuscular HGB Conc 32.1 g/dl (31.0-36.0); Mean Corpuscular Hemoglobin 26.5 pg (27.0-33.0); Mean Corpuscular Volume 82.6 fL (80.0-98.0); Mean Platelet Volume 9.6 fL (9.4-12.4); Monocytes Absolute Auto 0.6 X10*3/uL (0.1-1.2); Monocytes Percent Auto 7.6 % (2-11); Neutrophils Absolute Auto 5.1 x10*3/uL (2.0-8.3); Neutrophils Percent Auto 60.9 % (45-73); Platelet Count 264 X10*3/uL (160-400); Red Blood Count 4.83 X10*6/uL (4.60-5.80); Red Cell Distribution Width 12.6 % (11.0-16.0); White Blood Count 8.4 X10*3/uL (4.8-10.8)
== END 2022-05-27 12:23 | disposition home or self-care (01) ==
LOC: HO.LABR 12:22
PROVIDERS: PCP Internal Medicine; Visit Provider Registered Nurse
DX: Z79.899 Other long term (current) drug therapy (principal)
CPT/HCPCS: 36415; 85025

== ENCOUNTER 2022-06-27 12:39 | Outpatient (REF) | payer MEDICARE, MEDICAID, SELFPAY ==
[2022-06-27 12:48] LABS: MANUAL DIFF FLAG NO
[2022-06-27 12:59] LABS: Basophils Percent Auto 0.4 % (0-2); Eosinophils Absolute Auto 0.1 X10*3/uL (0.0-0.4); Eosinophils Percent Auto 0.6 % (0-4); Hematocrit 40.5 % (42.0-52.0); Hemoglobin 12.9 g/dl (14.0-18.0); Imm Gran Abs Auto 0.15 X10*3/uL (0.00-0.03); Imm Gran Pct Auto 1.8 % (0.0-0.4); Lymphocytes Percent Auto 36.1 % (20-40); Mean Corpuscular HGB Conc 31.9 g/dl (31.0-36.0); Mean Corpuscular Hemoglobin 26.5 pg (27.0-33.0); Mean Corpuscular Volume 83.3 fL (80.0-98.0); Mean Platelet Volume 9.9 fL (9.4-12.4); Monocytes Absolute Auto 0.6 X10*3/uL (0.1-1.2); Monocytes Percent Auto 7.7 % (2-11); Neutrophils Absolute Auto 4.4 x10*3/uL (2.0-8.3); Neutrophils Percent Auto 53.4 % (45-73); Platelet Count 259 X10*3/uL (160-400); Red Blood Count 4.86 X10*6/uL (4.60-5.80); Red Cell Distribution Width 12.6 % (11.0-16.0); White Blood Count 8.2 X10*3/uL (4.8-10.8)
== END 2022-06-27 12:40 | disposition home or self-care (01) ==
LOC: HO.LABR 12:39
PROVIDERS: PCP Registered Nurse; Visit Provider Registered Nurse
DX: Z79.899 Other long term (current) drug therapy (principal)
CPT/HCPCS: 36415; 85025

== ENCOUNTER 2022-07-25 13:28 | Outpatient (REF) | payer MEDICARE, MEDICAID, SELFPAY ==
[2022-07-25 14:05] LABS: MANUAL DIFF FLAG NO
[2022-07-25 14:19] LABS: Basophils Percent Auto 0.4 % (0-2); Eosinophils Percent Auto 0.5 % (0-4); Hematocrit 39.3 % (42.0-52.0); Hemoglobin 12.7 g/dl (14.0-18.0); Imm Gran Abs Auto 0.16 X10*3/uL (0.00-0.03); Lymphocytes Absolute Auto 2.8 X10*3/uL (1.2-4.9); Lymphocytes Percent Auto 34.8 % (20-40); Mean Corpuscular HGB Conc 32.3 g/dl (31.0-36.0); Mean Corpuscular Hemoglobin 26.7 pg (27.0-33.0); Mean Corpuscular Volume 82.7 fL (80.0-98.0); Mean Platelet Volume 9.8 fL (9.4-12.4); Monocytes Absolute Auto 0.5 X10*3/uL (0.1-1.2); Monocytes Percent Auto 6.8 % (2-11); Neutrophils Absolute Auto 4.4 x10*3/uL (2.0-8.3); Neutrophils Percent Auto 55.5 % (45-73); Platelet Count 261 X10*3/uL (160-400); Red Blood Count 4.75 X10*6/uL (4.60-5.80); Red Cell Distribution Width 12.3 % (11.0-16.0); White Blood Count 7.9 X10*3/uL (4.8-10.8)
== END 2022-07-25 13:29 | disposition home or self-care (01) ==
LOC: HO.LABR 13:28
PROVIDERS: Visit Provider Registered Nurse
DX: Z79.899 Other long term (current) drug therapy (principal)
CPT/HCPCS: 36415; 85025

== ENCOUNTER 2022-08-22 14:21 | Outpatient (REF) | payer MEDICARE, MEDICAID, SELFPAY ==
[2022-08-22 14:30] LABS: MANUAL DIFF FLAG NO
[2022-08-22 15:35] LABS: Basophils Percent Auto 0.2 % (0-2); Eosinophils Absolute Auto 0.1 X10*3/uL (0.0-0.4); Eosinophils Percent Auto 0.6 % (0-4); Hematocrit 37.4 % (42.0-52.0); Hemoglobin 12.2 g/dl (14.0-18.0); Imm Gran Abs Auto 0.11 X10*3/uL (0.00-0.03); Imm Gran Pct Auto 1.4 % (0.0-0.4); Lymphocytes Absolute Auto 2.8 X10*3/uL (1.2-4.9); Lymphocytes Percent Auto 34.2 % (20-40); Mean Corpuscular HGB Conc 32.6 g/dl (31.0-36.0); Mean Corpuscular Hemoglobin 27.5 pg (27.0-33.0); Mean Corpuscular Volume 84.4 fL (80.0-98.0); Mean Platelet Volume 9.9 fL (9.4-12.4); Monocytes Absolute Auto 0.7 X10*3/uL (0.1-1.2); Neutrophils Absolute Auto 4.5 x10*3/uL (2.0-8.3); Neutrophils Percent Auto 55.6 % (45-73); Platelet Count 257 X10*3/uL (160-400); Red Blood Count 4.43 X10*6/uL (4.60-5.80); Red Cell Distribution Width 12.8 % (11.0-16.0); White Blood Count 8.1 X10*3/uL (4.8-10.8)
== END 2022-08-22 14:22 | disposition home or self-care (01) ==
LOC: HO.LABR 14:21
PROVIDERS: Visit Provider Registered Nurse
DX: Z79.899 Other long term (current) drug therapy (principal)
CPT/HCPCS: 36415; 85025

== ENCOUNTER 2022-09-19 10:27 | Outpatient (REF) | payer MEDICARE, MEDICAID, SELFPAY ==
[2022-09-19 10:42] LABS: MANUAL DIFF FLAG NO
[2022-09-19 10:56] LABS: Basophils Percent Auto 0.4 % (0-2); Eosinophils Absolute Auto 0.1 X10*3/uL (0.0-0.4); Eosinophils Percent Auto 0.7 % (0-4); Hematocrit 38.9 % (42.0-52.0); Hemoglobin 12.8 g/dl (14.0-18.0); Imm Gran Abs Auto 0.07 X10*3/uL (0.00-0.03); Lymphocytes Absolute Auto 2.4 X10*3/uL (1.2-4.9); Lymphocytes Percent Auto 35.5 % (20-40); Mean Corpuscular HGB Conc 32.9 g/dl (31.0-36.0); Mean Corpuscular Hemoglobin 27.5 pg (27.0-33.0); Mean Corpuscular Volume 83.7 fL (80.0-98.0); Mean Platelet Volume 9.8 fL (9.4-12.4); Monocytes Absolute Auto 0.6 X10*3/uL (0.1-1.2); Neutrophils Absolute Auto 3.7 x10*3/uL (2.0-8.3); Neutrophils Percent Auto 54.4 % (45-73); Platelet Count 227 X10*3/uL (160-400); Red Blood Count 4.65 X10*6/uL (4.60-5.80); Red Cell Distribution Width 12.5 % (11.0-16.0); White Blood Count 6.9 X10*3/uL (4.8-10.8)
== END 2022-09-19 10:28 | disposition home or self-care (01) ==
LOC: HO.LABR 10:27
PROVIDERS: Visit Provider Registered Nurse
DX: Z79.899 Other long term (current) drug therapy (principal)
CPT/HCPCS: 36415; 85025

== ENCOUNTER 2022-10-10 08:20 | Outpatient (REF) | payer MEDICARE, MEDICAID, SELFPAY ==
[2022-10-10 08:28] LABS: MANUAL DIFF FLAG NO
[2022-10-10 08:51] LABS: Basophils Percent Auto 0.4 % (0-2); Eosinophils Absolute Auto 0.1 X10*3/uL (0.0-0.4); Eosinophils Percent Auto 1.4 % (0-4); Hematocrit 39.1 % (42.0-52.0); Hemoglobin 12.4 g/dl (14.0-18.0); Imm Gran Pct Auto 1.4 % (0.0-0.4); Lymphocytes Absolute Auto 2.5 X10*3/uL (1.2-4.9); Lymphocytes Percent Auto 34.3 % (20-40); Mean Corpuscular HGB Conc 31.7 g/dl (31.0-36.0); Mean Corpuscular Hemoglobin 27.2 pg (27.0-33.0); Mean Corpuscular Volume 85.7 fL (80.0-98.0); Mean Platelet Volume 9.5 fL (9.4-12.4); Monocytes Absolute Auto 0.6 X10*3/uL (0.1-1.2); Monocytes Percent Auto 8.3 % (2-11); Neutrophils Percent Auto 54.2 % (45-73); Platelet Count 265 X10*3/uL (160-400); Red Blood Count 4.56 X10*6/uL (4.60-5.80); Red Cell Distribution Width 12.8 % (11.0-16.0); White Blood Count 7.4 X10*3/uL (4.8-10.8)
== END 2022-10-10 08:21 | disposition home or self-care (01) ==
LOC: HO.LABR 08:20
PROVIDERS: PCP Registered Nurse; Visit Provider Registered Nurse
DX: Z79.899 Other long term (current) drug therapy (principal)
CPT/HCPCS: 36415; 85025

== ENCOUNTER 2022-10-21 08:19 | Outpatient (REF) | payer MEDICARE, MEDICAID, SELFPAY ==
[2022-10-21 08:31] LABS: MANUAL DIFF FLAG NO
[2022-10-21 08:55] LABS: Basophils Percent Auto 0.3 % (0-2); Eosinophils Absolute Auto 0.1 X10*3/uL (0.0-0.4); Hemoglobin 13.2 g/dl (14.0-18.0); Imm Gran Abs Auto 0.11 X10*3/uL (0.00-0.03); Imm Gran Pct Auto 1.5 % (0.0-0.4); Lymphocytes Absolute Auto 2.4 X10*3/uL (1.2-4.9); Lymphocytes Percent Auto 33.2 % (20-40); Mean Corpuscular HGB Conc 32.2 g/dl (31.0-36.0); Mean Corpuscular Hemoglobin 26.9 pg (27.0-33.0); Mean Corpuscular Volume 83.5 fL (80.0-98.0); Mean Platelet Volume 9.5 fL (9.4-12.4); Monocytes Absolute Auto 0.6 X10*3/uL (0.1-1.2); Monocytes Percent Auto 8.7 % (2-11); Neutrophils Absolute Auto 3.9 x10*3/uL (2.0-8.3); Neutrophils Percent Auto 55.3 % (45-73); Platelet Count 256 X10*3/uL (160-400); Red Blood Count 4.91 X10*6/uL (4.60-5.80); Red Cell Distribution Width 12.5 % (11.0-16.0); White Blood Count 7.1 X10*3/uL (4.8-10.8)
== END 2022-10-21 08:20 | disposition home or self-care (01) ==
LOC: HO.LABR 08:19
PROVIDERS: PCP Registered Nurse; Visit Provider Registered Nurse
DX: Z79.899 Other long term (current) drug therapy (principal)
CPT/HCPCS: 36415; 85025

== ENCOUNTER 2022-11-21 08:14 | Outpatient (REF) | payer MEDICARE, MEDICAID, SELFPAY ==
[2022-11-21 08:26] LABS: MANUAL DIFF FLAG NO
[2022-11-21 09:14] LABS: Basophils Percent Auto 0.3 % (0-2); Eosinophils Absolute Auto 0.1 X10*3/uL (0.0-0.4); Eosinophils Percent Auto 0.9 % (0-4); Hematocrit 40.2 % (42.0-52.0); Hemoglobin 12.8 g/dl (14.0-18.0); Imm Gran Abs Auto 0.07 X10*3/uL (0.00-0.03); Lymphocytes Absolute Auto 2.4 X10*3/uL (1.2-4.9); Lymphocytes Percent Auto 33.8 % (20-40); Mean Corpuscular HGB Conc 31.8 g/dl (31.0-36.0); Mean Corpuscular Hemoglobin 26.7 pg (27.0-33.0); Mean Corpuscular Volume 83.9 fL (80.0-98.0); Mean Platelet Volume 9.6 fL (9.4-12.4); Monocytes Absolute Auto 0.6 X10*3/uL (0.1-1.2); Monocytes Percent Auto 7.9 % (2-11); Neutrophils Absolute Auto 3.9 x10*3/uL (2.0-8.3); Neutrophils Percent Auto 56.1 % (45-73); Platelet Count 257 X10*3/uL (160-400); Red Blood Count 4.79 X10*6/uL (4.60-5.80); Red Cell Distribution Width 12.3 % (11.0-16.0)
== END 2022-11-21 08:15 | disposition home or self-care (01) ==
LOC: HO.LABR 08:14
PROVIDERS: Visit Provider Registered Nurse
DX: Z79.899 Other long term (current) drug therapy (principal)
CPT/HCPCS: 36415; 85025

== ENCOUNTER 2022-12-22 07:31 | Outpatient (REF) | payer MEDICARE, MEDICAID, SELFPAY ==
[2022-12-22 07:41] LABS: MANUAL DIFF FLAG NO
[2022-12-22 08:33] LABS: Basophils Percent Auto 0.2 % (0-2); Eosinophils Absolute Auto 0.1 X10*3/uL (0.0-0.4); Eosinophils Percent Auto 1.2 % (0-4); Hematocrit 40.6 % (42.0-52.0); Hemoglobin 12.8 g/dl (14.0-18.0); Imm Gran Abs Auto 0.14 X10*3/uL (0.00-0.03); Imm Gran Pct Auto 1.7 % (0.0-0.4); Lymphocytes Absolute Auto 2.5 X10*3/uL (1.2-4.9); Lymphocytes Percent Auto 31.4 % (20-40); Mean Corpuscular HGB Conc 31.5 g/dl (31.0-36.0); Mean Corpuscular Hemoglobin 26.8 pg (27.0-33.0); Mean Corpuscular Volume 85.1 fL (80.0-98.0); Mean Platelet Volume 9.1 fL (9.4-12.4); Monocytes Absolute Auto 0.7 X10*3/uL (0.1-1.2); Monocytes Percent Auto 8.7 % (2-11); Neutrophils Absolute Auto 4.6 x10*3/uL (2.0-8.3); Neutrophils Percent Auto 56.8 % (45-73); Platelet Count 385 X10*3/uL (160-400); Red Blood Count 4.77 X10*6/uL (4.60-5.80); Red Cell Distribution Width 12.5 % (11.0-16.0)
== END 2022-12-22 07:32 | disposition home or self-care (01) ==
LOC: HO.LABR 07:31
PROVIDERS: Visit Provider Registered Nurse
DX: Z79.899 Other long term (current) drug therapy (principal)
CPT/HCPCS: 36415; 85025

== ENCOUNTER 2023-01-19 08:00 | Outpatient (REF) | payer MEDICARE, MEDICAID, SELFPAY ==
[2023-01-19 08:09] LABS: MANUAL DIFF FLAG NO
[2023-01-19 08:40] LABS: Basophils Percent Auto 0.5 % (0-2); Eosinophils Absolute Auto 0.2 X10*3/uL (0.0-0.4); Eosinophils Percent Auto 1.9 % (0-4); Hematocrit 40.4 % (42.0-52.0); Hemoglobin 12.5 g/dl (14.0-18.0); Imm Gran Abs Auto 0.14 X10*3/uL (0.00-0.03); Imm Gran Pct Auto 1.7 % (0.0-0.4); Lymphocytes Percent Auto 35.5 % (20-40); Mean Corpuscular HGB Conc 30.9 g/dl (31.0-36.0); Mean Corpuscular Hemoglobin 26.5 pg (27.0-33.0); Mean Corpuscular Volume 85.8 fL (80.0-98.0); Mean Platelet Volume 9.5 fL (9.4-12.4); Monocytes Absolute Auto 0.6 X10*3/uL (0.1-1.2); Monocytes Percent Auto 7.4 % (2-11); Neutrophils Absolute Auto 4.4 x10*3/uL (2.0-8.3); Platelet Count 334 X10*3/uL (160-400); Red Blood Count 4.71 X10*6/uL (4.60-5.80); Red Cell Distribution Width 12.6 % (11.0-16.0); White Blood Count 8.3 X10*3/uL (4.8-10.8)
== END 2023-01-19 08:01 | disposition home or self-care (01) ==
LOC: HO.LABR 08:00
PROVIDERS: Visit Provider Registered Nurse
DX: Z79.899 Other long term (current) drug therapy (principal)
CPT/HCPCS: 36415; 85025

== ENCOUNTER 2023-02-20 07:18 | Outpatient (REF) | payer MEDICARE, MEDICAID, SELFPAY ==
[2023-02-20 07:28] LABS: MANUAL DIFF FLAG NO
[2023-02-20 08:09] LABS: Basophils Percent Auto 0.3 % (0-2); Eosinophils Absolute Auto 0.1 X10*3/uL (0.0-0.4); Eosinophils Percent Auto 0.8 % (0-4); Hematocrit 39.2 % (42.0-52.0); Hemoglobin 12.6 g/dl (14.0-18.0); Imm Gran Abs Auto 0.03 X10*3/uL (0.00-0.03); Imm Gran Pct Auto 0.5 % (0.0-0.4); Lymphocytes Absolute Auto 2.6 X10*3/uL (1.2-4.9); Lymphocytes Percent Auto 40.7 % (20-40); Mean Corpuscular HGB Conc 32.1 g/dl (31.0-36.0); Mean Corpuscular Hemoglobin 26.9 pg (27.0-33.0); Mean Corpuscular Volume 83.6 fL (80.0-98.0); Monocytes Absolute Auto 0.5 X10*3/uL (0.1-1.2); Monocytes Percent Auto 8.1 % (2-11); Neutrophils Absolute Auto 3.2 x10*3/uL (2.0-8.3); Neutrophils Percent Auto 49.6 % (45-73); Platelet Count 253 X10*3/uL (160-400); Red Blood Count 4.69 X10*6/uL (4.60-5.80); Red Cell Distribution Width 12.6 % (11.0-16.0); White Blood Count 6.4 X10*3/uL (4.8-10.8)
== END 2023-02-20 07:19 | disposition home or self-care (01) ==
LOC: HO.LABR 07:18
PROVIDERS: PCP Registered Nurse; Visit Provider Registered Nurse
DX: Z79.899 Other long term (current) drug therapy (principal)
CPT/HCPCS: 36415; 85025

== ENCOUNTER 2023-03-16 08:05 | Outpatient (REF) | payer MEDICARE, MEDICAID, SELFPAY ==
[2023-03-16 08:20] LABS: MANUAL DIFF FLAG NO
[2023-03-16 08:43] LABS: Basophils Percent Auto 0.3 % (0-2); Eosinophils Percent Auto 0.4 % (0-4); Hematocrit 40.4 % (42.0-52.0); Hemoglobin 12.8 g/dl (14.0-18.0); Imm Gran Abs Auto 0.06 X10*3/uL (0.00-0.03); Imm Gran Pct Auto 0.9 % (0.0-0.4); Lymphocytes Absolute Auto 2.5 X10*3/uL (1.2-4.9); Mean Corpuscular HGB Conc 31.7 g/dl (31.0-36.0); Mean Corpuscular Hemoglobin 26.7 pg (27.0-33.0); Mean Corpuscular Volume 84.3 fL (80.0-98.0); Mean Platelet Volume 9.9 fL (9.4-12.4); Monocytes Absolute Auto 0.6 X10*3/uL (0.1-1.2); Monocytes Percent Auto 8.7 % (2-11); Neutrophils Absolute Auto 3.6 x10*3/uL (2.0-8.3); Neutrophils Percent Auto 52.7 % (45-73); Platelet Count 233 X10*3/uL (160-400); Red Blood Count 4.79 X10*6/uL (4.60-5.80); Red Cell Distribution Width 12.5 % (11.0-16.0); White Blood Count 6.8 X10*3/uL (4.8-10.8)
== END 2023-03-16 08:06 | disposition home or self-care (01) ==
LOC: HO.LABR 08:05
PROVIDERS: Visit Provider Registered Nurse
DX: Z79.899 Other long term (current) drug therapy (principal)
CPT/HCPCS: 36415; 85025

== ENCOUNTER 2023-04-16 07:37 | Outpatient (REF) | payer MEDICARE, MEDICAID, SELFPAY ==
[2023-04-16 07:45] LABS: MANUAL DIFF FLAG NO
[2023-04-16 08:08] LABS: Basophils Percent Auto 0.3 % (0-2); Eosinophils Percent Auto 0.3 % (0-4); Hematocrit 38.4 % (42.0-52.0); Hemoglobin 12.2 g/dl (14.0-18.0); Imm Gran Abs Auto 0.19 X10*3/uL (0.00-0.03); Imm Gran Pct Auto 3.2 % (0.0-0.4); Lymphocytes Absolute Auto 1.4 X10*3/uL (1.2-4.9); Lymphocytes Percent Auto 24.1 % (20-40); Mean Corpuscular HGB Conc 31.8 g/dl (31.0-36.0); Mean Corpuscular Hemoglobin 26.5 pg (27.0-33.0); Mean Corpuscular Volume 83.5 fL (80.0-98.0); Mean Platelet Volume 9.5 fL (9.4-12.4); Monocytes Absolute Auto 0.8 X10*3/uL (0.1-1.2); Monocytes Percent Auto 12.7 % (2-11); Neutrophils Absolute Auto 3.5 x10*3/uL (2.0-8.3); Neutrophils Percent Auto 59.4 % (45-73); Platelet Count 252 X10*3/uL (160-400); White Blood Count 5.9 X10*3/uL (4.8-10.8)
== END 2023-04-16 07:38 | disposition home or self-care (01) ==
LOC: HO.LAB 07:37
PROVIDERS: Registered Nurse; PCP Internal Medicine; Visit Provider Internal Medicine
DX: Z79.899 Other long term (current) drug therapy (principal)
CPT/HCPCS: 36415; 85025

== ENCOUNTER 2023-05-18 07:31 | Outpatient (REF) | payer MEDICARE, MEDICAID, SELFPAY | END 2023-05-18 07:32 | disposition home or self-care (01) | LOC: HO.LABR 07:31 | PROVIDERS: PCP Internal Medicine; Visit Provider Registered Nurse | DX: Z79.899 Other long term (current) drug therapy (principal) | CPT/HCPCS: 36415; 85025 ==

== ENCOUNTER 2023-06-19 11:05 | Outpatient (REF) | payer MEDICARE, MEDICAID, SELFPAY ==
[2023-06-19 11:19] LABS: MANUAL DIFF FLAG NO
[2023-06-19 12:05] LABS: Basophils Percent Auto 0.1 % (0-2); Eosinophils Percent Auto 0.1 % (0-4); Hemoglobin 12.1 g/dl (14.0-18.0); Imm Gran Abs Auto 0.07 X10*3/uL (0.00-0.03); Imm Gran Pct Auto 0.9 % (0.0-0.4); Lymphocytes Absolute Auto 2.3 X10*3/uL (1.2-4.9); Lymphocytes Percent Auto 30.1 % (20-40); Mean Corpuscular HGB Conc 31.8 g/dl (31.0-36.0); Mean Corpuscular Hemoglobin 26.9 pg (27.0-33.0); Mean Corpuscular Volume 84.4 fL (80.0-98.0); Mean Platelet Volume 9.5 fL (9.4-12.4); Monocytes Absolute Auto 0.7 X10*3/uL (0.1-1.2); Monocytes Percent Auto 8.6 % (2-11); Neutrophils Absolute Auto 4.5 x10*3/uL (2.0-8.3); Neutrophils Percent Auto 60.2 % (45-73); Platelet Count 286 X10*3/uL (160-400); Red Cell Distribution Width 12.8 % (11.0-16.0); White Blood Count 7.5 X10*3/uL (4.8-10.8)
== END 2023-06-19 11:06 | disposition home or self-care (01) ==
LOC: HO.LABR 11:05
PROVIDERS: Visit Provider Registered Nurse
DX: Z79.899 Other long term (current) drug therapy (principal)
CPT/HCPCS: 36415; 85025

== ENCOUNTER 2023-07-10 07:23 | Outpatient (REF) | payer MEDICARE, MEDICAID, SELFPAY ==
[2023-07-10 07:32] LABS: MANUAL DIFF FLAG NO
[2023-07-10 07:40] LABS: Basophils Percent Auto 0.2 % (0-2); Hematocrit 40.4 % (42.0-52.0); Hemoglobin 12.6 g/dl (14.0-18.0); Imm Gran Abs Auto 0.13 X10*3/uL (0.00-0.03); Imm Gran Pct Auto 1.5 % (0.0-0.4); Lymphocytes Absolute Auto 2.7 X10*3/uL (1.2-4.9); Lymphocytes Percent Auto 31.1 % (20-40); Mean Corpuscular HGB Conc 31.2 g/dl (31.0-36.0); Mean Corpuscular Volume 86.5 fL (80.0-98.0); Mean Platelet Volume 9.2 fL (9.4-12.4); Monocytes Absolute Auto 0.6 X10*3/uL (0.1-1.2); Monocytes Percent Auto 7.1 % (2-11); Neutrophils Absolute Auto 5.3 x10*3/uL (2.0-8.3); Neutrophils Percent Auto 60.1 % (45-73); Platelet Count 307 X10*3/uL (160-400); Red Blood Count 4.67 X10*6/uL (4.60-5.80); White Blood Count 8.8 X10*3/uL (4.8-10.8)
== END 2023-07-10 07:24 | disposition home or self-care (01) ==
LOC: HO.LABR 07:23
PROVIDERS: Visit Provider Registered Nurse
DX: Z79.899 Other long term (current) drug therapy (principal)
CPT/HCPCS: 36415; 85025

== ENCOUNTER 2023-09-03 07:37 | Outpatient (REF) | payer MEDICARE, MEDICAID, SELFPAY ==
[2023-09-03 07:45] LABS: MANUAL DIFF FLAG NO
[2023-09-03 08:28] LABS: Basophils Percent Auto 0.1 % (0-2); Eosinophils Percent Auto 0.1 % (0-4); Hematocrit 39.8 % (42.0-52.0); Hemoglobin 12.7 g/dl (14.0-18.0); Imm Gran Abs Auto 0.08 X10*3/uL (0.00-0.03); Imm Gran Pct Auto 1.1 % (0.0-0.4); Lymphocytes Absolute Auto 2.2 X10*3/uL (1.2-4.9); Lymphocytes Percent Auto 29.8 % (20-40); Mean Corpuscular HGB Conc 31.9 g/dl (31.0-36.0); Mean Corpuscular Hemoglobin 26.2 pg (27.0-33.0); Mean Corpuscular Volume 82.1 fL (80.0-98.0); Mean Platelet Volume 9.6 fL (9.4-12.4); Monocytes Absolute Auto 0.5 X10*3/uL (0.1-1.2); Monocytes Percent Auto 7.4 % (2-11); Neutrophils Absolute Auto 4.5 x10*3/uL (2.0-8.3); Neutrophils Percent Auto 61.5 % (45-73); Platelet Count 249 X10*3/uL (160-400); Red Blood Count 4.85 X10*6/uL (4.60-5.80); Red Cell Distribution Width 12.6 % (11.0-16.0); White Blood Count 7.3 X10*3/uL (4.8-10.8)
== END 2023-09-03 07:38 | disposition home or self-care (01) ==
LOC: HO.LABR 07:37
PROVIDERS: Visit Provider Registered Nurse
DX: Z79.899 Other long term (current) drug therapy (principal)
CPT/HCPCS: 36415; 85025

== ENCOUNTER 2023-09-30 07:47 | Outpatient (REF) | payer MEDICARE, MEDICAID, SELFPAY ==
[2023-09-30 08:21] LABS: Basophils Percent Auto 0.1 % (0-2); Eosinophils Percent Auto 0.1 % (0-4); Hematocrit 40.4 % (42.0-52.0); Hemoglobin 12.9 g/dl (14.0-18.0); Imm Gran Abs Auto 0.07 X10*3/uL (0.00-0.03); Lymphocytes Absolute Auto 2.4 X10*3/uL (1.2-4.9); Lymphocytes Percent Auto 32.7 % (20-40); MANUAL DIFF FLAG NO; Mean Corpuscular HGB Conc 31.9 g/dl (31.0-36.0); Mean Corpuscular Hemoglobin 26.3 pg (27.0-33.0); Mean Corpuscular Volume 82.3 fL (80.0-98.0); Mean Platelet Volume 10.3 fL (9.4-12.4); Monocytes Absolute Auto 0.7 X10*3/uL (0.1-1.2); Monocytes Percent Auto 9.1 % (2-11); Neutrophils Absolute Auto 4.1 x10*3/uL (2.0-8.3); Platelet Count 252 X10*3/uL (160-400); Red Blood Count 4.91 X10*6/uL (4.60-5.80); Red Cell Distribution Width 12.6 % (11.0-16.0); White Blood Count 7.2 X10*3/uL (4.8-10.8)
== END 2023-09-30 07:48 | disposition home or self-care (01) ==
LOC: HO.LAB 07:47
PROVIDERS: Visit Provider Registered Nurse
DX: Z79.899 Other long term (current) drug therapy (principal)
CPT/HCPCS: 36415; 85025

== ENCOUNTER 2023-10-30 07:49 | Outpatient (REF) | payer MEDICARE, MEDICAID, SELFPAY ==
[2023-10-30 08:10] LABS: MANUAL DIFF FLAG NO
[2023-10-30 08:50] LABS: Basophils Percent Auto 0.3 % (0-2); Eosinophils Percent Auto 0.2 % (0-4); Hematocrit 38.6 % (42.0-52.0); Hemoglobin 12.2 g/dl (14.0-18.0); Imm Gran Abs Auto 0.12 X10*3/uL (0.00-0.03); Imm Gran Pct Auto 1.8 % (0.0-0.4); Lymphocytes Absolute Auto 2.4 X10*3/uL (1.2-4.9); Lymphocytes Percent Auto 36.7 % (20-40); Mean Corpuscular HGB Conc 31.6 g/dl (31.0-36.0); Mean Corpuscular Hemoglobin 26.4 pg (27.0-33.0); Mean Corpuscular Volume 83.5 fL (80.0-98.0); Mean Platelet Volume 9.7 fL (9.4-12.4); Monocytes Absolute Auto 0.7 X10*3/uL (0.1-1.2); Monocytes Percent Auto 10.2 % (2-11); Neutrophils Absolute Auto 3.4 x10*3/uL (2.0-8.3); Neutrophils Percent Auto 50.8 % (45-73); Platelet Count 270 X10*3/uL (160-400); Red Blood Count 4.62 X10*6/uL (4.60-5.80); Red Cell Distribution Width 12.2 % (11.0-16.0); White Blood Count 6.6 X10*3/uL (4.8-10.8)
== END 2023-10-30 07:50 | disposition home or self-care (01) ==
LOC: HO.LABR 07:49
PROVIDERS: PCP Registered Nurse; Visit Provider Registered Nurse
DX: Z79.899 Other long term (current) drug therapy (principal)
CPT/HCPCS: 36415; 85025

== ENCOUNTER 2023-11-27 09:51 | Outpatient (REF) | payer MEDICARE, MEDICAID, SELFPAY ==
[2023-11-27 09:59] LABS: MANUAL DIFF FLAG NO
[2023-11-27 10:39] LABS: Basophils Percent Auto 0.3 % (0-2); Eosinophils Percent Auto 0.1 % (0-4); Hematocrit 41.4 % (42.0-52.0); Hemoglobin 13.1 g/dl (14.0-18.0); Imm Gran Abs Auto 0.07 X10*3/uL (0.00-0.03); Imm Gran Pct Auto 0.9 % (0.0-0.4); Lymphocytes Absolute Auto 2.1 X10*3/uL (1.2-4.9); Lymphocytes Percent Auto 25.6 % (20-40); Mean Corpuscular HGB Conc 31.6 g/dl (31.0-36.0); Mean Corpuscular Hemoglobin 26.7 pg (27.0-33.0); Mean Corpuscular Volume 84.3 fL (80.0-98.0); Mean Platelet Volume 9.8 fL (9.4-12.4); Monocytes Absolute Auto 0.5 X10*3/uL (0.1-1.2); Neutrophils Absolute Auto 5.4 x10*3/uL (2.0-8.3); Neutrophils Percent Auto 67.1 % (45-73); Platelet Count 240 X10*3/uL (160-400); Red Blood Count 4.91 X10*6/uL (4.60-5.80); Red Cell Distribution Width 12.7 % (11.0-16.0)
== END 2023-11-27 09:52 | disposition home or self-care (01) ==
LOC: HO.LABR 09:51
PROVIDERS: PCP Registered Nurse; Visit Provider Registered Nurse
DX: Z79.899 Other long term (current) drug therapy (principal)
CPT/HCPCS: 36415; 85025

== ENCOUNTER 2023-12-22 08:12 | Outpatient (REF) | payer MEDICARE, MEDICAID, SELFPAY ==
[2023-12-22 08:26] LABS: MANUAL DIFF FLAG NO
[2023-12-22 08:53] LABS: Basophils Percent Auto 0.2 % (0-2); Hematocrit 38.9 % (42.0-52.0); Hemoglobin 12.6 g/dl (14.0-18.0); Imm Gran Abs Auto 0.13 X10*3/uL (0.00-0.03); Imm Gran Pct Auto 1.5 % (0.0-0.4); Lymphocytes Absolute Auto 2.5 X10*3/uL (1.2-4.9); Lymphocytes Percent Auto 29.1 % (20-40); Mean Corpuscular HGB Conc 32.4 g/dl (31.0-36.0); Mean Corpuscular Hemoglobin 27.7 pg (27.0-33.0); Mean Corpuscular Volume 85.5 fL (80.0-98.0); Mean Platelet Volume 9.7 fL (9.4-12.4); Monocytes Absolute Auto 0.7 X10*3/uL (0.1-1.2); Monocytes Percent Auto 7.8 % (2-11); Neutrophils Absolute Auto 5.3 x10*3/uL (2.0-8.3); Neutrophils Percent Auto 61.4 % (45-73); Platelet Count 272 X10*3/uL (160-400); Red Blood Count 4.55 X10*6/uL (4.60-5.80); Red Cell Distribution Width 12.6 % (11.0-16.0); White Blood Count 8.6 X10*3/uL (4.8-10.8)
== END 2023-12-22 08:13 | disposition home or self-care (01) ==
LOC: HO.LABR 08:12
PROVIDERS: Visit Provider Registered Nurse
DX: Z79.899 Other long term (current) drug therapy (principal)
CPT/HCPCS: 36415; 85025

== ENCOUNTER 2024-01-21 07:49 | Outpatient (REF) | payer MEDICARE, MEDICAID, SELFPAY ==
[2024-01-21 08:04] LABS: MANUAL DIFF FLAG NO
[2024-01-21 08:43] LABS: Basophils Percent Auto 0.3 % (0-2); Eosinophils Percent Auto 0.3 % (0-4); Hematocrit 40.8 % (42.0-52.0); Imm Gran Abs Auto 0.06 X10*3/uL (0.00-0.03); Imm Gran Pct Auto 0.8 % (0.0-0.4); Lymphocytes Absolute Auto 2.5 X10*3/uL (1.2-4.9); Lymphocytes Percent Auto 32.1 % (20-40); Mean Corpuscular HGB Conc 31.9 g/dl (31.0-36.0); Mean Corpuscular Hemoglobin 26.7 pg (27.0-33.0); Mean Platelet Volume 9.8 fL (9.4-12.4); Monocytes Absolute Auto 0.6 X10*3/uL (0.1-1.2); Monocytes Percent Auto 7.3 % (2-11); Neutrophils Absolute Auto 4.7 x10*3/uL (2.0-8.3); Neutrophils Percent Auto 59.2 % (45-73); Platelet Count 251 X10*3/uL (160-400); Red Blood Count 4.86 X10*6/uL (4.60-5.80); Red Cell Distribution Width 12.3 % (11.0-16.0); White Blood Count 7.9 X10*3/uL (4.8-10.8)
== END 2024-01-21 07:50 | disposition home or self-care (01) ==
LOC: HO.LABR 07:49
PROVIDERS: PCP Internal Medicine; Visit Provider Registered Nurse
DX: Z79.899 Other long term (current) drug therapy (principal)
CPT/HCPCS: 36415; 85025

== ENCOUNTER 2024-02-12 07:25 | Outpatient (REF) | payer MEDICARE, MEDICAID, SELFPAY ==
[2024-02-12 07:51] LABS: MANUAL DIFF FLAG NO
[2024-02-12 08:43] LABS: Basophils Percent Auto 0.4 % (0-2); Eosinophils Percent Auto 0.3 % (0-4); Hematocrit 40.7 % (42.0-52.0); Imm Gran Abs Auto 0.07 X10*3/uL (0.00-0.03); Imm Gran Pct Auto 0.9 % (0.0-0.4); Lymphocytes Absolute Auto 2.6 X10*3/uL (1.2-4.9); Lymphocytes Percent Auto 33.9 % (20-40); Mean Corpuscular HGB Conc 31.9 g/dl (31.0-36.0); Mean Corpuscular Hemoglobin 27.1 pg (27.0-33.0); Mean Platelet Volume 9.8 fL (9.4-12.4); Monocytes Absolute Auto 0.6 X10*3/uL (0.1-1.2); Monocytes Percent Auto 7.4 % (2-11); Neutrophils Absolute Auto 4.4 x10*3/uL (2.0-8.3); Neutrophils Percent Auto 57.1 % (45-73); Platelet Count 276 X10*3/uL (160-400); Red Blood Count 4.79 X10*6/uL (4.60-5.80); Red Cell Distribution Width 12.3 % (11.0-16.0); White Blood Count 7.7 X10*3/uL (4.8-10.8)
== END 2024-02-12 07:26 | disposition home or self-care (01) ==
LOC: HO.LAB 07:25
PROVIDERS: PCP Internal Medicine; Visit Provider Registered Nurse
DX: Z79.899 Other long term (current) drug therapy (principal)
CPT/HCPCS: 36415; 85025

== ENCOUNTER 2024-03-11 07:16 | Outpatient (REF) | payer MEDICARE, MEDICAID, SELFPAY ==
[2024-03-11 07:26] LABS: MANUAL DIFF FLAG NO
[2024-03-11 09:11] LABS: Basophils Percent Auto 0.3 % (0-2); Eosinophils Percent Auto 0.1 % (0-4); Hematocrit 40.8 % (42.0-52.0); Hemoglobin 13.2 g/dl (14.0-18.0); Imm Gran Abs Auto 0.08 X10*3/uL (0.00-0.03); Lymphocytes Absolute Auto 2.8 X10*3/uL (1.2-4.9); Lymphocytes Percent Auto 36.8 % (20-40); Mean Corpuscular HGB Conc 32.4 g/dl (31.0-36.0); Mean Corpuscular Hemoglobin 27.3 pg (27.0-33.0); Mean Corpuscular Volume 84.3 fL (80.0-98.0); Mean Platelet Volume 9.9 fL (9.4-12.4); Monocytes Absolute Auto 0.5 X10*3/uL (0.1-1.2); Monocytes Percent Auto 6.1 % (2-11); Neutrophils Absolute Auto 4.3 x10*3/uL (2.0-8.3); Neutrophils Percent Auto 55.7 % (45-73); Platelet Count 269 X10*3/uL (160-400); Red Blood Count 4.84 X10*6/uL (4.60-5.80); Red Cell Distribution Width 12.2 % (11.0-16.0); White Blood Count 7.7 X10*3/uL (4.8-10.8)
== END 2024-03-11 07:17 | disposition home or self-care (01) ==
LOC: HO.LABR 07:16
PROVIDERS: Visit Provider Registered Nurse
DX: Z79.899 Other long term (current) drug therapy (principal)
CPT/HCPCS: 36415; 85025

== ENCOUNTER 2024-04-11 07:46 | Outpatient (REF) | payer MEDICARE, MEDICAID, SELFPAY ==
[2024-04-11 08:09] LABS: MANUAL DIFF FLAG NO
[2024-04-11 08:37] LABS: Basophils Percent Auto 0.1 % (0-2); Eosinophils Percent Auto 0.1 % (0-4); Hematocrit 40.1 % (42.0-52.0); Hemoglobin 13.1 g/dl (14.0-18.0); Imm Gran Abs Auto 0.05 X10*3/uL (0.00-0.03); Imm Gran Pct Auto 0.6 % (0.0-0.4); Lymphocytes Absolute Auto 2.3 X10*3/uL (1.2-4.9); Lymphocytes Percent Auto 30.3 % (20-40); Mean Corpuscular HGB Conc 32.7 g/dl (31.0-36.0); Mean Corpuscular Hemoglobin 27.3 pg (27.0-33.0); Mean Corpuscular Volume 83.5 fL (80.0-98.0); Monocytes Absolute Auto 0.5 X10*3/uL (0.1-1.2); Monocytes Percent Auto 6.9 % (2-11); Neutrophils Absolute Auto 4.8 x10*3/uL (2.0-8.3); Platelet Count 256 X10*3/uL (160-400); Red Cell Distribution Width 12.4 % (11.0-16.0); White Blood Count 7.7 X10*3/uL (4.8-10.8)
== END 2024-04-11 07:47 | disposition home or self-care (01) ==
LOC: HO.LAB 07:46
PROVIDERS: Visit Provider Registered Nurse
DX: Z79.899 Other long term (current) drug therapy (principal)
CPT/HCPCS: 36415; 85025

== ENCOUNTER 2024-05-10 07:28 | Outpatient (REF) | payer MEDICARE, MEDICAID, SELFPAY ==
[2024-05-10 07:37] LABS: MANUAL DIFF FLAG NO
[2024-05-10 09:01] LABS: Basophils Percent Auto 0.4 % (0-2); Eosinophils Percent Auto 0.2 % (0-4); Hematocrit 39.7 % (42.0-52.0); Hemoglobin 12.8 g/dl (14.0-18.0); Imm Gran Abs Auto 0.11 X10*3/uL (0.00-0.03); Imm Gran Pct Auto 1.3 % (0.0-0.4); Lymphocytes Absolute Auto 2.4 X10*3/uL (1.2-4.9); Lymphocytes Percent Auto 28.2 % (20-40); Mean Corpuscular HGB Conc 32.2 g/dl (31.0-36.0); Mean Corpuscular Hemoglobin 27.3 pg (27.0-33.0); Mean Corpuscular Volume 84.6 fL (80.0-98.0); Mean Platelet Volume 10.2 fL (9.4-12.4); Monocytes Absolute Auto 0.6 X10*3/uL (0.1-1.2); Neutrophils Absolute Auto 5.3 x10*3/uL (2.0-8.3); Neutrophils Percent Auto 62.9 % (45-73); Platelet Count 259 X10*3/uL (160-400); Red Blood Count 4.69 X10*6/uL (4.60-5.80); Red Cell Distribution Width 12.6 % (11.0-16.0); White Blood Count 8.4 X10*3/uL (4.8-10.8)
== END 2024-05-10 07:29 | disposition home or self-care (01) ==
LOC: HO.LABR 07:28
PROVIDERS: Visit Provider Registered Nurse
DX: Z79.899 Other long term (current) drug therapy (principal)
CPT/HCPCS: 36415; 85025

== ENCOUNTER 2024-06-10 06:54 | Outpatient (REF) | payer MEDICARE, MEDICAID, SELFPAY ==
[2024-06-10 07:07] LABS: MANUAL DIFF FLAG NO
[2024-06-10 07:21] LABS: Basophils Percent Auto 0.4 % (0-2); Eosinophils Absolute Auto 0.1 X10*3/uL (0.0-0.4); Eosinophils Percent Auto 0.7 % (0-4); Hematocrit 38.7 % (42.0-52.0); Hemoglobin 12.6 g/dl (14.0-18.0); Imm Gran Abs Auto 0.06 X10*3/uL (0.00-0.03); Imm Gran Pct Auto 0.9 % (0.0-0.4); Lymphocytes Absolute Auto 2.7 X10*3/uL (1.2-4.9); Lymphocytes Percent Auto 39.2 % (20-40); Mean Corpuscular HGB Conc 32.6 g/dl (31.0-36.0); Mean Corpuscular Hemoglobin 27.5 pg (27.0-33.0); Mean Corpuscular Volume 84.3 fL (80.0-98.0); Mean Platelet Volume 9.7 fL (9.4-12.4); Monocytes Absolute Auto 0.5 X10*3/uL (0.1-1.2); Monocytes Percent Auto 7.9 % (2-11); Neutrophils Absolute Auto 3.5 x10*3/uL (2.0-8.3); Neutrophils Percent Auto 50.9 % (45-73); Platelet Count 226 X10*3/uL (160-400); Red Blood Count 4.59 X10*6/uL (4.60-5.80); Red Cell Distribution Width 12.4 % (11.0-16.0); White Blood Count 6.8 X10*3/uL (4.8-10.8)
== END 2024-06-10 06:55 | disposition home or self-care (01) ==
LOC: HO.LABR 06:54
PROVIDERS: Visit Provider Registered Nurse
DX: Z79.899 Other long term (current) drug therapy (principal)
CPT/HCPCS: 36415; 85025

== ENCOUNTER 2024-07-13 07:29 | Outpatient (REF) | payer MEDICARE, MEDICAID, SELFPAY ==
[2024-07-13 07:40] LABS: MANUAL DIFF FLAG NO
[2024-07-13 07:51] LABS: Basophils Percent Auto 0.4 % (0-2); Eosinophils Percent Auto 0.4 % (0-4); Hematocrit 36.4 % (42.0-52.0); Imm Gran Abs Auto 0.35 X10*3/uL (0.00-0.03); Imm Gran Pct Auto 4.3 % (0.0-0.4); Lymphocytes Absolute Auto 3.7 X10*3/uL (1.2-4.9); Mean Corpuscular Hemoglobin 27.8 pg (27.0-33.0); Mean Corpuscular Volume 84.3 fL (80.0-98.0); Mean Platelet Volume 8.5 fL (9.4-12.4); Monocytes Absolute Auto 0.7 X10*3/uL (0.1-1.2); Monocytes Percent Auto 8.6 % (2-11); Neutrophils Absolute Auto 3.3 x10*3/uL (2.0-8.3); Neutrophils Percent Auto 40.3 % (45-73); Platelet Count 418 X10*3/uL (160-400); Red Blood Count 4.32 X10*6/uL (4.60-5.80); Red Cell Distribution Width 12.6 % (11.0-16.0); White Blood Count 8.1 X10*3/uL (4.8-10.8)
== END 2024-07-13 07:30 | disposition home or self-care (01) ==
LOC: HO.LABR 07:29
PROVIDERS: Visit Provider Registered Nurse
DX: Z79.899 Other long term (current) drug therapy (principal)
CPT/HCPCS: 36415; 85025

== ENCOUNTER 2024-08-09 07:30 | Outpatient (REF) | payer MEDICARE, MEDICAID, SELFPAY ==
[2024-08-09 07:45] LABS: MANUAL DIFF FLAG NO
[2024-08-09 08:19] LABS: Basophils Percent Auto 0.4 % (0-2); Eosinophils Absolute Auto 0.1 X10*3/uL (0.0-0.4); Hemoglobin 12.5 g/dl (14.0-18.0); Imm Gran Abs Auto 0.08 X10*3/uL (0.00-0.03); Imm Gran Pct Auto 1.1 % (0.0-0.4); Lymphocytes Percent Auto 28.5 % (20-40); Mean Corpuscular HGB Conc 32.9 g/dl (31.0-36.0); Mean Corpuscular Hemoglobin 27.5 pg (27.0-33.0); Mean Corpuscular Volume 83.7 fL (80.0-98.0); Mean Platelet Volume 9.5 fL (9.4-12.4); Monocytes Percent Auto 13.9 % (2-11); Neutrophils Absolute Auto 3.9 x10*3/uL (2.0-8.3); Neutrophils Percent Auto 54.1 % (45-73); Platelet Count 201 X10*3/uL (160-400); Red Blood Count 4.54 X10*6/uL (4.60-5.80); Red Cell Distribution Width 12.5 % (11.0-16.0); White Blood Count 7.1 X10*3/uL (4.8-10.8)
== END 2024-08-09 07:31 | disposition home or self-care (01) ==
LOC: HO.LABR 07:30
PROVIDERS: PCP Registered Nurse; Visit Provider Registered Nurse
DX: Z79.899 Other long term (current) drug therapy (principal)
CPT/HCPCS: 36415; 85025

== ENCOUNTER 2024-09-09 08:11 | Outpatient (REF) | payer MEDICARE, MEDICAID, SELFPAY ==
[2024-09-09 08:22] LABS: MANUAL DIFF FLAG NO
[2024-09-09 08:52] LABS: Basophils Percent Auto 0.3 % (0-2); Eosinophils Absolute Auto 0.1 X10*3/uL (0.0-0.4); Eosinophils Percent Auto 1.4 % (0-4); Hematocrit 37.8 % (42.0-52.0); Hemoglobin 12.3 g/dl (14.0-18.0); Imm Gran Abs Auto 0.08 X10*3/uL (0.00-0.03); Imm Gran Pct Auto 1.1 % (0.0-0.4); Lymphocytes Absolute Auto 2.5 X10*3/uL (1.2-4.9); Lymphocytes Percent Auto 33.9 % (20-40); Mean Corpuscular HGB Conc 32.5 g/dl (31.0-36.0); Mean Corpuscular Hemoglobin 27.4 pg (27.0-33.0); Mean Corpuscular Volume 84.2 fL (80.0-98.0); Mean Platelet Volume 9.3 fL (9.4-12.4); Monocytes Absolute Auto 0.6 X10*3/uL (0.1-1.2); Monocytes Percent Auto 7.6 % (2-11); Neutrophils Percent Auto 55.7 % (45-73); Platelet Count 236 X10*3/uL (160-400); Red Blood Count 4.49 X10*6/uL (4.60-5.80); Red Cell Distribution Width 12.4 % (11.0-16.0); White Blood Count 7.2 X10*3/uL (4.8-10.8)
== END 2024-09-09 08:12 | disposition home or self-care (01) ==
LOC: HO.LABR 08:11
PROVIDERS: PCP Family Medicine; Visit Provider Registered Nurse
DX: Z79.899 Other long term (current) drug therapy (principal)
CPT/HCPCS: 36415; 85025

== ENCOUNTER 2024-10-10 09:59 | Outpatient (REF) | payer MEDICARE, MEDICAID, SELFPAY ==
[2024-10-10 10:20] LABS: MANUAL DIFF FLAG NO
[2024-10-10 10:47] LABS: Basophils Percent Auto 0.5 % (0-2); Eosinophils Absolute Auto 0.2 X10*3/uL (0.0-0.4); Eosinophils Percent Auto 2.1 % (0-4); Hematocrit 39.3 % (42.0-52.0); Imm Gran Abs Auto 0.09 X10*3/uL (0.00-0.03); Imm Gran Pct Auto 1.2 % (0.0-0.4); Lymphocytes Absolute Auto 2.7 X10*3/uL (1.2-4.9); Mean Corpuscular HGB Conc 33.1 g/dl (31.0-36.0); Mean Corpuscular Hemoglobin 27.8 pg (27.0-33.0); Mean Corpuscular Volume 84.2 fL (80.0-98.0); Mean Platelet Volume 9.6 fL (9.4-12.4); Monocytes Absolute Auto 0.5 X10*3/uL (0.1-1.2); Monocytes Percent Auto 6.5 % (2-11); Neutrophils Absolute Auto 4.1 x10*3/uL (2.0-8.3); Neutrophils Percent Auto 53.7 % (45-73); Platelet Count 245 X10*3/uL (160-400); Red Blood Count 4.67 X10*6/uL (4.60-5.80); Red Cell Distribution Width 12.3 % (11.0-16.0); White Blood Count 7.6 X10*3/uL (4.8-10.8)
== END 2024-10-10 10:00 | disposition home or self-care (01) ==
LOC: HO.LABR 09:59
PROVIDERS: PCP Family Medicine; Visit Provider Registered Nurse
DX: Z79.899 Other long term (current) drug therapy (principal)
CPT/HCPCS: 36415; 85025

== ENCOUNTER 2024-11-11 07:22 | Outpatient (REF) | payer MEDICARE, MEDICAID, SELFPAY ==
[2024-11-11 07:29] LABS: MANUAL DIFF FLAG NO
[2024-11-11 08:06] LABS: Basophils Percent Auto 0.3 % (0-2); Eosinophils Absolute Auto 0.2 X10*3/uL (0.0-0.4); Eosinophils Percent Auto 3.5 % (0-4); Hematocrit 40.1 % (42.0-52.0); Hemoglobin 12.9 g/dl (14.0-18.0); Imm Gran Abs Auto 0.05 X10*3/uL (0.00-0.03); Imm Gran Pct Auto 0.7 % (0.0-0.4); Lymphocytes Absolute Auto 2.7 X10*3/uL (1.2-4.9); Lymphocytes Percent Auto 38.9 % (20-40); Mean Corpuscular HGB Conc 32.2 g/dl (31.0-36.0); Mean Corpuscular Hemoglobin 27.4 pg (27.0-33.0); Mean Corpuscular Volume 85.1 fL (80.0-98.0); Mean Platelet Volume 9.5 fL (9.4-12.4); Monocytes Absolute Auto 0.5 X10*3/uL (0.1-1.2); Monocytes Percent Auto 6.5 % (2-11); Neutrophils Absolute Auto 3.5 x10*3/uL (2.0-8.3); Neutrophils Percent Auto 50.1 % (45-73); Platelet Count 254 X10*3/uL (160-400); Red Blood Count 4.71 X10*6/uL (4.60-5.80); Red Cell Distribution Width 12.3 % (11.0-16.0); White Blood Count 6.9 X10*3/uL (4.8-10.8)
== END 2024-11-11 07:23 | disposition home or self-care (01) ==
LOC: HO.LABR 07:22
PROVIDERS: Visit Provider Registered Nurse
DX: Z79.899 Other long term (current) drug therapy (principal)
CPT/HCPCS: 36415; 85025

== ENCOUNTER 2024-12-10 09:09 | Outpatient (REF) | payer MEDICARE, MEDICAID, SELFPAY ==
--- OUTSIDE RECORDS SUMMARY | 2024-12-10 09:11 | XMS_ITS | Clinical Summary ---
Author Organization [facility] [employer] [facility] Address [address] [place] [address] Phone Care Team Providers Care Meter Supervisor Name Role Phone Cinthya Arguelles MD Primary Care Pr ovider Allergies No known active allergies Medications Medication Sig Dispensed Refills Start Date End Date Status divalproex (DEPAKOTE ER) 500 mg 24 hr tablet Take 1 Tablet by mouth 2 Times Daily. 06/15/2023 Active divalproex (DEPAKOTE ER) 250 mg 24 hr tablet Take 1 Tablet by mouth 2 Times Daily. 06/15/2023 Active cloZAPine (CLOZARIL) 200 mg tablet Take 400 mg by mouth daily. Active blood glucose control, normal (OneTouch Ultra Control) solution Use to check FSG once a day 04/07/2024 Active blood-glucose meter kit 1 Each by Does not apply route daily. Use once daily to check fasting blood sugar 04/07/2024 Active cholecalciferol (VITAMIN D-3) 50 mcg (2,000 unit) tabletIndications: Vitamin D deficiency Take 2 tablets (4,000 Units total) by mouth 1 (one) time each day. 180 tablet 2 11/23/2024 Active docusate sodium (COLACE) 100 mg capsuleIndications :Chronic anemia Take 1 capsule (100 mg total) by mouth 1 (one) time each day. 90 each 11/23/2024 Active ferrous sulfate 325 mg (65 mg iron) EC tabletIndications: Chronic anemia Take 1 tablet (325 mg total) by mouth 1 (one) time each day. Do not crush, chew, or split. 90 tablet 11/23/2024 Active freestyle (Prodigy Lancets) 28 gauge lancetsIndications :Type 2 diabetes mellitus without complication, without long-term current use of insulin ([facility]) Use to check glucose daily 100 each 1 11/23/2024 Active glucose blood test stripIndications:T ype 2 diabetes mellitus without complication, without long-term current use of insulin ([facility]) Use as instructed 100 each 2 11/23/2024 Active lisinopriL (PRINIVIL,ZESTRIL) 5 mg tabletIndications: Primary hypertension Take 1 tablet (5 mg total) by mouth 1 (one) time each day in the morning. 90 tablet 1 11/23/2024 Active metoprolol succinate (TOPROL-XL) 25 mg 24 hr tabletIndications: Sinus tachycardia Do not crush or chew.Take 25 mg by mouth daily. Take with 50mg for total of 75mg daily 90 tablet 1 11/23/2024 Active metoprolol succinate (TOPROL-XL) 50 mg 24 hr tabletIndications: Primary hypertension,Sinus tachycardia Take 1 tablet (50 mg total) by mouth 1 (one) time each day in the morning. Do not crush or chew. 90 tablet 1 11/23/2024 Active omeprazole (PriLOSEC) [address] capsuleIndications :Gastroesophageal reflux disease without esophagitis Take 1 capsule (20 mg total) by mouth 1 (one) time each day. Do not crush or chew. 90 capsule 1 11/23/2024 Active ferrous sulfate 325 mg (65 mg iron) EC tablet Take 1 Tablet by mouth daily. 08/16/2024 5 Discontinue d(Reorder) docusate sodium (COLACE) 100 mg capsule Take 1 Capsule by mouth daily for 180 days. 08/16/2024 5 Discontinue d(Reorder) hydrOXYzine HCL (ATARAX) 50 mg tablet Take 1 Tablet by mouth at bedtime. 08/08/2024 5 Discontinue d(Therapy completed) lisinopriL (PRINIVIL,ZESTRIL) 5 mg tablet Take 1 Tablet by mouth every morning. 08/08/2024 5 Discontinue d(Reorder) omeprazole (PriLOSEC) [address] capsule Take 1 Capsule by mouth daily. 08/08/2024 5 Discontinue d(Reorder) cholecalciferol (VITAMIN D-3) 50 mcg (2,000 unit) tablet Take 2 Tablets by mouth daily. 08/08/2024 Discontinue d(Reorder) glucose blood test strip USE DIRECTED TO CHECK FASTING BLOOD SUGAR ONCE DAILY. 08/12/2024 Discontinue d(Reorder) metoprolol succinate (TOPROL-XL) 50 mg 24 hr tablet Take 1 tablet (50 mg total) by mouth 1 (one) time each day in the morning. Do not crush or chew. 90 tablet 1 09/26/2024 Discontinue d(Reorder) metoprolol succinate (TOPROL-XL) 25 mg 24 hr tablet Do not crush or chew.Take 25 mg by mouth daily. 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 Last TSH was wnl as above Chronic anemia 04/08/2024 Assessment & Plan (11/23/2024 12:24 PM EST): Continue iron supplement for a total of 3 more months. His anemia is likely related to depakote use Most recent iron studies done by GI in Dec shows normal iron levels but he still has mild anemia Referred to hematology Orders: docusate sodium (COLACE) 100 mg capsule; Take 1 capsule (100 mg total) by mouth 1 (one) time each day. ferrous sulfate 325 mg (65 mg iron) EC tablet; Take 1 tablet (325 mg total) by mouth 1 (one) time each day. Do not crush, chew, or split. Ambulatory referral to Hematology; Future Insomnia 04/07/2024 Assessment & Plan (11/23/2024 12:24 PM EST): Well controlled. Continue clozapine prescribed by psychiatry. Stop Hydroxyzine. There is potential for QTC prolongation with both meds. He is sleeping really well. Hydroxyzine may not be of additional benefit Hypertensive retinopathy of both eyes 02/02/2023 Overview (08/29/2024): [facility] eye exam om 01/30/23 No diabetic retinopathy. Hypertensive retinopathy OU. Recommend observation. No need for glasses. Follow-up in 1 year. Mild AV nicking. Sinus tachycardia 10/17/2019 Assessment & Plan (11/23/2024 12:24 PM EST): Stable. Continue metoprolol Orders: metoprolol succinate (TOPROL-XL) 25 mg 24 hr tablet; Do not crush or chew.Take 25 mg by mouth daily. Take with 50mg for total of 75mg daily metoprolol succinate (TOPROL-XL) 50 mg 24 hr tablet; Take 1 tablet (50 mg total) by mouth 1 (one) time each day in the morning. Do not crush or chew. Bipolar affective disorder 09/04/2011 Assessment & Plan (11/23/2024 12:24 PM EST): Continue Psychiatry follow-up. Continue Depakote and clozapine Primary hypertension 09/04/2011 Assessment & Plan (11/23/2024 12:24 PM EST): Stable. Continue current meds. Orders: lisinopriL (PRINIVIL,ZESTRIL) 5 mg tablet; Take 1 tablet (5 mg total) by mouth 1 (one) time each day in the morning. metoprolol succinate (TOPROL-XL) 50 mg 24 hr tablet; Take 1 tablet (50 mg total) by mouth 1 (one) time each day in the morning. Do not crush or chew. GERD (gastroesophageal reflux disease) 1 Assessment & Plan (11/23/2024 12:24 PM EST): Stable. Continue omeprazole Orders: omeprazole (PriLOSEC) [address] capsule; Take 1 capsule (20 mg total) by mouth 1 (one) time each day. Do not crush or chew. Vitamin D deficiency 06/04/2011 Assessment & Plan (11/23/2024 12:24 PM EST): Continue vitamin D daily Orders: cholecalciferol (VITAMIN D-3) 50 mcg (2,000 unit) tablet; Take 2 tablets (4,000 Units total) by mouth 1 (one) time each day. Vitamin D 25 hydroxy; Future Type 2 diabetes mellitus without complication Assessment & Plan (11/23/2024 12:24 PM EST): Well controlled.last A1c was 5.6. continue lifestyle management He chooses to check his FSG almost daily, advised that given his DM is well controlled, he does not need to continue to do so Orders: freestyle (Prodigy Lancets) 28 gauge lancets; Use to check glucose daily glucose blood test strip; Use as instructed Hemoglobin A1c; Future Seasonal allergies 06/04/2011 Class 2 severe obesity due t o excess calories with serious comorbidity and body mass index (BMI) of 35.0 to 35.9 in adult Encounters Date Type Department Care Team Description 11/23/2024 9:30 AM EST Office Visit Adult Medicine [address] [phone] Cinthya Arguelles MD Gastroesophageal reflux disease without esophagitis (Primary Dx); Primary hypertension; Sinus tachycardia; Chronic anemia; Primary insomnia; Bipolar affective disorder, remission status unspecified ([facility]); Type 2 diabetes mellitus without complication, without long-term current use of insulin ([facility]); Vitamin D deficiency; Subclinical hyperthyroidism 11/03/2024 7:00 AM EST Ancillary Procedure [facility] [address] [place] [id number] Sinus tachycardia 10/10/2024 2:40 PM EST Consult Gastroenterology - [place] [address] [place] [phone] Eliecer Valenzuela PA Iron deficiency (Primary Dx); Gastroesophageal reflux disease without esophagitis; Diabetes 1.5, managed as type 2 (CMS/HCC); Family history of colon cancer in father 09/15/2024 8:40 AM EST Consult Endocrinology - [address] [phone] Loree Collins PA Subclinical hyperthyroidism (Primary Dx) from Last 3 Months Immunizations Name Administration Dates Next Due Influenza Quadravalent, MDCK , 0.5ml, preservative free (Flucelvax) 6mo and older 12/29/2022,10/17/2019,09/27/2018 Influenza trivalent, 0.5mL, preservative free (Fluarix; FluLaval; Fluzone) ages 6mo and older (Afluria) 3 years and older 08/08/2024 Influenza trivalent, with pr eservative (Fluzone; Afluria) 6mo and older 12/15/2013,10/11/2012,09/04/2011 Moderna SARS-CoV-2 COVID-19, mRNA, LNP-S, preservative free 01/07/2021 Pneumococcal polysaccharide 23 valent (Pneumovax 23) 2yo and older 12/15/2013 Tdap Tetanus diptheria acell ular pertussis (Boostrix; Adacel) 7yo and older 12/29/2022,06/29/2012 Surgical History Surgery Date Site/Laterality Comments OTHER SURGICAL HISTORY PROCEDURE: DENIES PREVIOUS SURGERY Medical History Medical History Date Comments Unspecified essential hypertension DX:Unspecified essential hypertension Esophageal reflux DX:Esophageal reflux Type II or unspecified type diabetes mellitus with unspecified complication, not stated as uncontrolled DX:Type II or unspecified ty pe diabetes mellitus with unspecified complication, not stated as uncontrolled Bipolar affective (CMS/HCC) DX:B ipolar affective (HCC) Bipolar affective disorder (CMS/HCC) 09/04/2011 DX:Bipolar affective disorder (HCC) Asthma 06/04/2011 DX:Asthma Family History Medical History Relation Name Comments Diabetes Father Other cancer Father Liver Cancer Blindness Neg Hx Breast cancer Neg Hx Cataracts Neg Hx Colon cancer Neg Hx Glaucoma Neg Hx Macular degeneration Neg Hx Strabismus Neg Hx Relation Name Status Comments Father Mother Social History Tobacco Use Types Packs/Day Years Used Date Smoking Tobacco: Never Smokeless Tobacco: Never Alcohol Use Standard Drinks/Week Comments No 0 (1 standard drink = 0.6 oz pur e alcohol) Sex and Gender Information Value Date Recorded Sex Assigned at Not on file Gender Identity Not on file Sexual Orientation Not on file Job Start Date Occupation Industry Not on file Not on file Not on file Obstetrics History Last Filed Vital Signs Vital Sign Reading Time Taken Comments Blood Pressure 138/88 11/23/2024 9:30 AM EST Pulse 95 11/23/2024 9:30 AM EST Temperature 36.7 ??C (98.1 ??F) 11/23/2024 9:30 AM ES T Respiratory Rate 18 11/23/2024 9:30 AM EST Oxygen Saturation 99% 09/15/2024 8:49 AM EST Inhaled Oxygen Concentration - - Weight 122 kg (270 lb) 11/23/2024 9:30 AM EST Height 185.4 cm (6' 1 ) 11/23/2024 9:30 AM EST Body Mass Index 35.62 11/23/2024 9:30 AM EST Plan of Treatment Upcoming Encounters Date Type Department Care Team (Late st Contact Info) Description 01/10/2025 3:30 PM EST Office Visit [facility] Hematology Oncology [address] [place] [address] Peri Villatoro PA [address] [place] [address] 04/13/2025 8:00 AM EDT Office Visit Adult Medicine [address] [phone] Cindy Carlos PA [address] [place] [address] Health Maintenance Due Date Last Done Comments Pneumococcal Vaccine: Pediatrics (0 to 5 Years) and At-Risk Patients (6 to 64 Years) (2 of 2 - PCV) 12/15/2014 12/15/2013 HIV Screening 10/07/2022 Medicare Annual Wellness Visit 10/07/2022 Social Influencers of Health Screening 10/07/2022 COVID-19 Vaccine ( season) 2024 01/28/2021, 01/07/2021 Depression Screening 04/07/2025 04/07/2024 Diabetes: Annual Foot Exam 04/07/2025 04/07/2024 Diabetes: Annual Urine Albumin-Creatinine Ratio (uACR) 04/11/2025 04/11/2024 Diabetes: Blood Sugar Control Test (HGBA1C) 05/23/2025 11/23/2024, 08/08/2024, 08/08/2024, Additional history exists Diabetes: Annual Retina Eye Exam 06/02/2025 06/02/2024 Diabetes: Annual GFR (Glomerular Filtration Rate) 10/10/2025 10/10/2024, 04/07/2024, 04/07/2024 Hypertension/CHF/CAD Annual BMP Blood Test 10/10/2025 10/10/2024, 04/07/2024, 04/07/2024 Cholesterol Screening (Lipid Panel) 04/07/2029 04/07/2024, 04/07/2024 DTaP,Tdap,and Td Vaccines (3 - Td or Tdap) 12/29/2032 12/29/2022, 06/29/2012 Hepatitis C Screening Completed 01/13/2018 Influenza Vaccine Completed 08/08/2024, , 10/17/2019, Additional history exists HIB Vaccines Aged Out No longer eligi ble based on patient's age to complete this topic HPV Vaccines Aged Out No longer eligi ble based on patient's age to complete this topic Hepatitis A Vaccines Aged Out No long er eligible based on patient's age to complete this topic Hepatitis B Vaccines Discontinued IPV Vaccines Aged Out No longer eligi ble based on patient's age to complete this topic MMR Vaccines Aged Out No longer eligi ble based on patient's age to complete this topic Meningococcal ACWY Vaccine Aged Out N o longer eligible based on patient's age to complete this topic RSV Immunization Patients Under 20 months Aged Out No longer eligible based on patient's age to complete this topic Varicella Vaccines Aged Out No longer eligible based on patient's age to complete this topic Procedures Procedure Name Priority Date/Time Associated Diagnosis Comments HEMOGLOBIN A1C Routine 11/23/2024 10:49 AM EST Type 2 diabetes mellitus without complication, without long-term current use of insulin ([facility]) VITAMIN D 25 HYDROXY Routine 11/23/2024 10:49 AM EST Vitamin D deficiency CBC WITH AUTO DIFFERENTIAL Routine 10/10/2024 3:15 PM EST Iron deficiency Gastroesophageal reflux disease without esophagitis Diabetes 1.5, managed as type 2 (CMS/HCC) IRON Routine 10/10/2024 3:15 PM EST Iron deficiency Gastroesophageal reflux disease without esophagitis Diabetes 1.5, managed as type 2 (CMS/HCC) FERRITIN Routine 10/10/2024 3:15 PM EST Iron deficiency Gastroesophageal reflux disease without esophagitis Diabetes 1.5, managed as type 2 (CMS/HCC) COMPREHENSIVE METABOLIC PANEL Routine 10/10/2024 3:15 PM EST Iron deficiency Gastroesophageal reflux disease without esophagitis Diabetes 1.5, managed as type 2 (CMS/HCC) CBC AND DIFFERENTIAL Routine 10/10/2024 3:15 PM EST Iron deficiency Gastroesophageal reflux disease without esophagitis Diabetes 1.5, managed as type 2 (CMS/HCC) THYROXINE FREE Routine 09/15/2024 9:36 AM EST Subclinical hyperthyroidism TRIIODOTHYRONINE FREE Routine 09/15/2024 9:36 AM EST Subclinical hyperthyroidism THYROTROPIN RECEPTOR ANTIBODY Routine 09/15/2024 9:36 AM EST Subclinical hyperthyroidism THYROID STIMULATING IMMUNOGLOBULIN Routine 09/15/2024 9:36 AM EST Subclinical hyperthyroidism THYROID STIMULATING HORMONE Routine 09/15/2024 9:36 AM EST Subclinical hyperthyroidism DIABETES EYE EXAM Routine 06/02/2024 URINE ALBUMIN CREATININE RATIO Routine 04/11/2024 HM DEPRESSION SCREENING Routine 04/07/2024 LIPID PANEL Routine 04/07/2024 DIABETES FOOT EXAM Routine 04/07/2024 HEPATITIS C SCREENING Routine 01/13/2018 from Last 3 Months or Most Recently Relevant to Health Maintenance Results * Vitamin D 25 hydroxy (11/23/2024 10:49 AM EST) Vit D, 25-Hydroxy 39.2 30.0 - 80.0 ng/mL LAB CHEMISTRY METHOD 11/23/2024 2:27 PM EST [facility] Blood Venous blood specimen / Unknown Venipuncture / Unknown 11/23/2024 10:49 AM EST 11/23/2024 10:49 AM EST Cinthya Arguelles MD LAB BLOO D ORDERABLES Performing Organization Address City/[facility]/ZIP Co de Phone Number [facility] [address] [place] [address], [place] [phone] * Hemoglobin A1c (11/23/2024 10:49 AM EST) [facility] Hemoglobin A1C 5.8 <6.5 % LAB CHEMISTRY METHOD 11/23/2024 2:07 PM EST [facility] Mean Bld Glu Estim. 120 mg/dL LAB CHEMISTRY METHOD 11/23/2024 2:07 PM EST [facility] Blood Venous blood specimen / Unknown Venipuncture / Unknown 11/23/2024 10:49 AM EST 11/23/2024 10:49 AM EST Cinthya Arguelles MD LAB BLOO D ORDERABLES Performing Organization Address City/[facility]/ZIP Co de Phone Number [facility] [address] [place] [address], [place] [phone] * (ABNORMAL) CBC auto differential (10/10/2024 3:15 PM EST) WBC 9.5 4.8 - 10.8 K/mcL LAB HEMETOLOGY METHOD 10/10/2024 7:00 PM [facility] RBC 4.80 4.50 - 5.50 M/mcL LAB HEMETOLOGY METHOD 10/10/2024 7:00 PM [facility] Hemoglobin 13.0(L) 13.5 - 17.5 g/dL LAB HEMETOLOGY METHOD 10/10/2024 7:00 PM [facility] Hematocrit 41.5(L) 42.0 - 54.0 % LAB HEMETOLOGY METHOD 10/10/2024 7:00 PM [facility] MCV 86.6 79.0 - 98.0 FL LAB HEMETOLOGY METHOD 10/10/2024 7:00 PM [facility] MCH 27.1 27.0 - 32.0 pcg LAB HEMETOLOGY METHOD 10/10/2024 7:00 PM [facility] MCHC 31.3(L) 32.0 - 37.0 g/dL LAB HEMETOLOGY METHOD 10/10/2024 7:00 PM [facility] RDW 12.3 11.0 - 15.0 % LAB HEMETOLOGY METHOD 10/10/2024 7:00 PM [facility] Platelets 264 130 - 400 K/mcL LAB HEMETOLOGY METHOD 10/10/2024 7:00 PM [facility] MPV 10.2 7.0 - 11.0 FL LAB HEMETOLOGY METHOD 10/10/2024 7:00 PM [facility] NRBC 0.0 <1.0 % LAB HEMETOLOGY METHOD 10/10/2024 7:00 PM [facility] NRBC Absolute 0.00 <0.10 K/mcL LAB HEMETOLOGY METHOD 10/10/2024 7:00 PM [facility] Neutrophils Relative 59.8 % LAB HEMETOLOGY METHOD 10/10/2024 7:00 PM [facility] Lymphocytes Relative 31.3 % LAB HEMETOLOGY METHOD 10/10/2024 7:00 PM [facility] Monocytes Relative 5.5 % LAB HEMETOLOGY METHOD 10/10/2024 7:00 PM [facility] Eosinophils Relative 1.7 % LAB HEMETOLOGY METHOD 10/10/2024 7:00 PM [facility] Basophils Relative 0.5 % LAB HEMETOLOGY METHOD 10/10/2024 7:00 PM [facility] Immature Granulocytes Relative 1.2 % LAB HEMETOLOGY METHOD 10/10/2024 7:00 PM [facility] Neutrophils Absolute 5.71 1.50 - 7.00 K/mcL LAB HEMETOLOGY METHOD 10/10/2024 7:00 PM [facility] Lymphocytes Absolute 2.99 1.00 - 5.00 K/mcL LAB HEMETOLOGY METHOD 10/10/2024 7:00 PM [facility] Monocytes Absolute 0.52 0.20 - 1.00 K/mcL LAB HEMETOLOGY METHOD 10/10/2024 7:00 PM [facility] Eosinophils Absolute 0.16 0.00 - 0.50 K/mcL LAB HEMETOLOGY METHOD 10/10/2024 7:00 PM [facility] Basophils Absolute 0.05 0.00 - 0.20 K/mcL LAB HEMETOLOGY METHOD 10/10/2024 7:00 PM [facility] Immature Granulocytes Absolute 0.11(H) 0.00 - 0.03 K/mcL LAB HEMETOLOGY METHOD 10/10/2024 7:00 PM [facility] Blood Venous blood specimen / Unknown Venipuncture / Unknown 10/10/2024 3:15 PM EST 10/10/2024 3:15 PM EST Eliecer CEDEÑO LAB BLOOD ORDERABLES Performing Organization Address [facility]/ZIP Co de Phone Number [facility] [address] [place] [address], [place] [phone] * Iron (10/10/2024 3:15 PM EST) Pathologist [facility] Iron 88 50 - 160 mcg/dL LAB CHEMISTRY METHOD 10/10/2024 6:42 PM EST [facility] Blood Venous blood specimen / Unknown Venipuncture / Unknown 10/10/2024 3:15 PM EST 10/10/2024 3:15 PM EST Eliecer CEDEÑO LAB BLOOD ORDERABLES Performing Organization Address [facility] Co de Phone Number [facility] [address] [place] [address], [place] [phone] * Ferritin (10/10/2024 3:15 PM EST) [facility] Ferritin 62 26 - 388 ng/mL LAB CHEMISTRY METHOD 10/10/2024 6:49 PM EST [facility] Blood Venous blood specimen / Unknown Venipuncture / Unknown 10/10/2024 3:15 PM EST 10/10/2024 3:15 PM EST Eliecer CEDEÑO LAB BLOOD ORDERABLES Performing Organization Address City/[facility]/ZIP Co de Phone Number [facility] [address] [place] [address], [place] [phone] * (ABNORMAL) Comprehensive metabolic panel (10/10/2024 3:15 PM EST) [facility] Sodium 138 133 - 145 mmol/L LAB CHEMISTRY METHOD 10/10/2024 6:42 PM EST [facility] Potassium 4.7 3.5 - 5.5 mmol/L LAB CHEMISTRY METHOD 10/10/2024 6:42 PM [facility] Chloride 105 96 - 110 mmol/L LAB CHEMISTRY METHOD 10/10/2024 6:42 PM [facility] CO2 28 21 - 32 mmol/L LAB CHEMISTRY METHOD 10/10/2024 6:42 PM [facility] Anion Gap 5 3 - 11 LAB CHEMISTRY METHOD 10/10/2024 6:42 PM [facility] Glucose 95 70 - 100 mg/dL LAB CHEMISTRY METHOD 10/10/2024 6:42 PM [facility] BUN 13 5 - 25 mg/dL LAB CHEMISTRY METHOD 10/10/2024 6:42 PM [facility] Creatinine 0.68(L) 0.70 - 1.30 mg/dL LAB CHEMISTRY METHOD 10/10/2024 6:42 PM [facility] eGFR 124 >=60 mL/min/1. 73m2 LAB CHEMISTRY METHOD 10/10/2024 6:42 PM [facility] Comment:Calculation based on the??Chronic Kidney Disease Epidemiology Collaboration (CKD-EPI) equation refit??without adjustment for race. BUN/Creatinine Ratio 19.1 LAB CHEMISTRY METHOD 10/10/2024 6:42 PM [facility] Calcium 9.6 8.5 - 10.5 mg/dL LAB CHEMISTRY METHOD 10/10/2024 6:42 PM [facility] AST (SGOT) 12 10 - 42 unit/L LAB CHEMISTRY METHOD 10/10/2024 6:42 PM [facility] ALT (SGPT) 22 10 - 60 unit/L LAB CHEMISTRY METHOD 10/10/2024 6:42 PM [facility] Alkaline Phosphatase 45 42 - 121 unit/L LAB CHEMISTRY METHOD 10/10/2024 6:42 PM [facility] Total Protein 7.2 6.0 - 8.0 g/dL LAB CHEMISTRY METHOD 10/10/2024 6:42 PM [facility] Albumin 4.0 3.2 - 5.0 g/dL LAB CHEMISTRY METHOD 10/10/2024 6:42 PM EST [facility] Total Bilirubin 0.3 0.0 - 1.4 mg/dL LAB CHEMISTRY METHOD 10/10/2024 6:42 PM EST [facility] Blood Venous blood specimen / Unknown Venipuncture / Unknown 10/10/2024 3:15 PM EST 10/10/2024 3:15 PM EST Eliecer CEDEÑO LAB BLOOD ORDERABLES [facility] [address] [place] [address], * Thyroid stimulating immunoglobulin (09/15/2024 9:36 AM EST) Thyroid Stimulating Immunoglobulin <0.10 <0.10 IU/L 09/19/2024 2:35 PM EST [facility] Comment: Thyroid stimulating immunoglobulins (TSI) concentrations greater than or equal to (>=) 0.55 IU/L have a clinical sensitivity of at least 98.6%, and a clinical specificity of at least 98.5%, for the differential diagnosis of Graves' Disease. TSI concentrations for patients with other thyroid or autoimmune diseases range from 0.11 to 0.39 IU/L. Test performed at [facility], [address] , [place], [place] ??[address] ? [phone] Laura Braxton MD, PhD - [employer] Blood Venous blood specimen / Unknown Venipuncture / Unknown 09/15/2024 9:36 AM EST 09/15/2024 9:36 AM EST Loree CEDEÑO LAB BLOOD ORDERABLES [facility] [address] [place] [address] * Thyrotropin receptor antibody (09/15/2024 9:36 AM EST) TRAB (Tsh Receptor Antibody) 1.12 <=1.75 IU/L 09/20/2024 12:17 PM EST [facility] Comment: Test performed at [facility], [address] , [place], [place] ??[address] ? [phone] Laura Braxton MD, PhD - [employer] Blood Venous blood specimen / Unknown Venipuncture / Unknown 09/15/2024 9:36 AM EST 09/15/2024 9:36 AM EST Loree CEDEÑO LAB BLOOD ORDERABLES [facility] [address] [place] [address] * Triiodothyronine free (09/15/2024 9:36 AM EST) Pathologist [facility] T3, Free 391 230 - 420 pcg/dL LAB CHEMISTRY METHOD 09/15/2024 12:35 PM EST [facility] Blood Venous blood specimen / Unknown Venipuncture / Unknown 09/15/2024 9:36 AM EST 09/15/2024 9:36 AM EST Loree CEDEÑO LAB BLOOD ORDERABLES [facility] [address] [place] [address], * Thyroid stimulating hormone (09/15/2024 9:36 AM EST) TSH 1.03 0.40 - 4.00 mcIU/mL LAB CHEMISTRY METHOD 09/15/2024 12:36 PM EST [facility] Blood Venous blood specimen / Unknown Venipuncture / Unknown 09/15/2024 9:36 AM EST 09/15/2024 9:36 AM EST Loree CEDEÑO LAB BLOOD ORDERABLES [facility] [address] [place] [address], * Thyroxine free (09/15/2024 9:36 AM EST) [facility] T4 1.30 0.70 - 1.80 ng/dL LAB CHEMISTRY METHOD 09/15/2024 12:35 PM EST [facility] Blood Venous blood specimen / Unknown Venipuncture / Unknown 09/15/2024 9:36 AM EST 09/15/2024 9:36 AM EST Loree CEDEÑO LAB BLOOD ORDERABLES [facility] [address] [place] [address], * Diabetes Eye Exam (06/02/2024) [facility] Diabetes: Annual Retina Eye Exam abstracted [facility] Provider [facility] * Urine Albumin Creatinine Ratio (04/11/2024) [facility] Urine Albumin Creatinine Ratio abstracted [facility] Provider [facility] * Depression Screening (04/07/2024) [facility] Depression Screening abstracted [facility] Provider [facility] * Diabetes Foot Exam (04/07/2024) [facility] Diabetes: Annual Foot Exam abstracted Historical Provider [facility] E * (ABNORMAL) Lipid panel (04/07/2024) [facility] LDL/HDL Ratio 5(A) 0 - 4 Triglycerides 186(A) 0 - 150 mg/dL Cholesterol 166 0 - 200 mg/dL HDL 37(A) 40 mg/dL LDL Cholesterol 92 0 - 100 mg/dL Blood Venous blood specimen / Unknown Historical Provider LAB BLOOD ORDERAB LES * Hepatitis C Screening (01/13/2018) Hepatitis C Screening abstracted Historical Provider MD DENAE Jung from Last 3 Months or Most Recently Relevant to Health Maintenance Care Teams Meter Supervisor Relationship Specialty Start Date End Date Cinthya Arguelles MD [address] [place], [place] PCP - General Internal Medicine 07/21/22
--- OUTSIDE RECORDS SUMMARY | 2024-12-10 09:12 | XMS_ITS | Encounter Summary ---
Author Organization [facility] Address [address] [place] [address] Care Team Providers Care Instrument Lens Grinder Name Role Phone Cinthya Arguelles MD Primary Care Pr ovider Reason for Referral * Consultation (Routine) - Authorized Specialty Diagnoses / Procedures Referred By Contact Referred To Contact Hematology / Hematology and Oncology Diagnoses Chronic anemia Cinthya Arguelles MD [address] [place] [phone] [facility] Hematology Oncology [address] [place] [phone] Referral ID Status Reason Start Date Expiration Date Visits Requested Visits Authorized [id number] Authorized Specialty Services Required 11/23/2024 11/23/2025 1 1 Reason for Visit * Reason Comments Hypertension Diabetes Encounter Details Date Type Department Care Team (Late st Contact Info) Description 11/23/2024 9:30 AM EST Office Visit Adult Medicine [address] [phone] Cinthya Arguelles MD [address] [place] [id number] Gastroesophageal reflux disease without esophagitis (Primary Dx); Primary hypertension; Sinus tachycardia; Chronic anemia; Primary insomnia; Bipolar affective disorder, remission status unspecified (CMS/HCC); Type 2 diabetes mellitus without complication, without long-term current use of insulin ([facility]); Vitamin D deficiency; Subclinical hyperthyroidism Social History Tobacco Use Types Packs/Day Years [...] file Not on file Not on file documented as of this encounter Last Filed Vital Signs Vital Sign Reading Time Taken Comments Blood Pressure 138/88 11/23/2024 9:30 AM EST Pulse 95 11/23/2024 9:30 AM EST Temperature 36.7 ??C (98.1 ??F) 11/23/2024 9:30 AM ES T Respiratory Rate 18 11/23/2024 9:30 AM EST Oxygen Saturation - - Inhaled Oxygen Concentration - - Weight 122 kg (270 lb) 11/23/2024 9:30 AM EST Height 185.4 cm (6' 1 ) 11/23/2024 9:30 AM EST Body Mass Index 35.62 11/23/2024 9:30 AM EST documented in this encounter Patient Instructions * Attachments The following attachments cannot be sent through Care Everywhere. * Diabetes: Carb Counting and Eating Well: General Info (Iraqi) documented in this encounter Ordered Prescriptions Prescription Sig Dispensed Refills Start Date End Da te omeprazole (PriLOSEC) [address] capsuleIndications:Gas troesophageal reflux disease without esophagitis Take 1 capsule (20 mg total) by mouth 1 (one) time each day. Do not crush or chew. 90 capsule 1 11/23/2024 metoprolol succinate (TOPROL-XL) 50 mg 24 hr tabletIndications:Prim guy hypertension,Sinus tachycardia Take 1 tablet (50 mg total) by mouth 1 (one) time each day in the morning. Do not crush or chew. 90 tablet 1 11/23/2024 metoprolol succinate (TOPROL-XL) 25 mg 24 hr tabletIndications:Sinu s tachycardia Do not crush or chew.Take 25 mg by mouth daily. Take with 50mg for total of 75mg daily 90 tablet 1 11/23/2024 lisinopriL (PRINIVIL,ZESTRIL) 5 mg tabletIndications:Prim guy hypertension Take 1 tablet (5 mg total) by mouth 1 (one) time each day in the morning. 90 tablet 1 11/23/2024 glucose blood test stripIndications:Type 2 diabetes mellitus without complication, without long-term current use of insulin ([facility]) Use as instructed 100 each 2 11/23/2024 freestyle (Prodigy Lancets) 28 gauge lancetsIndications:Typ e 2 diabetes mellitus without complication, without long-term current use of insulin ([facility]) Use to check glucose daily 100 each 1 11/23/2024 ferrous sulfate 325 mg (65 mg iron) EC tabletIndications:Blow Mold Operator hali anemia Take 1 tablet (325 mg total) by mouth 1 (one) time each day. Do not crush, chew, or split. 90 tablet 11/23/2024 docusate sodium (COLACE) 100 mg capsuleIndications:Chr onic anemia Take 1 capsule (100 mg total) by mouth 1 (one) time each day. 90 each 11/23/2024 02/21/2025 cholecalciferol (VITAMIN D-3) 50 mcg (2,000 unit) tabletIndications:Janey min D deficiency Take 2 tablets (4,000 Units total) by mouth 1 (one) time each day. 180 tablet 2 11/23/2024 documented in this encounter Progress Notes * Cinthya Arguelles MD - 11/23/2024 9:30 AM ESTAssociated Problem(s): GERD (gastroesophageal reflux disease) Stable. Continue omeprazole Orders: omeprazole (PriLOSEC) [address] capsule; Take 1 capsule (20 mg total) by mouth 1 (one) time each day. Do not crush or chew. * Cinthya Arguelles MD - 11/23/2024 9:30 AM ESTAssociated Problem(s): Primary hypertension Stable. Continue current meds. Orders: lisinopriL (PRINIVIL,ZESTRIL) 5 mg tablet; Take 1 tablet (5 mg total) by mouth 1 (one) time each day in the morning. metoprolol succinate (TOPROL-XL) 50 mg 24 hr tablet; Take 1 tablet (50 mg total) by mouth 1 (one) time each day in the morning. Do not crush or chew. * Cinthya Arguelles MD - 11/23/2024 9:30 AM ESTAssociated Problem(s): Chronic anemia Continue iron supplement for a total of 3 more months. His anemia is likely related to depakote use Most recent iron studies done by GI in Oct shows normal iron levels but he still [...] or split. Ambulatory referral to Hematology; Future * Cinthya Arguelles MD - 11/23/2024 9:30 AM ESTAssociated Problem(s): Sinus tachycardia Stable. Continue metoprolol Orders: metoprolol succinate (TOPROL-XL) 25 mg 24 hr tablet; Do not crush or chew.Take 25 mg by mouth daily. Take with 50mg for total of 75mg daily metoprolol succinate (TOPROL-XL) 50 mg 24 hr tablet; Take 1 tablet (50 mg total) by mouth 1 (one) time each day in the morning. Do not crush or chew. * Cinthya Arguelles MD - 11/23/2024 9:30 AM ESTAssociated Problem(s): Insomnia Well controlled. Continue clozapine prescribed by psychiatry. Stop Hydroxyzine. There is potential for QTC prolongation with both meds. He is sleeping really well. Hydroxyzine may not be of additional benefit * Cinthya Arguelles MD - 11/23/2024 9:30 AM ESTAssociated Problem(s): Bipolar affective disorder (CMS/HCC) Continue Psychiatry follow-up. Continue Depakote and clozapine * Cinthya Arguelles MD - 11/23/2024 9:30 AM ESTAssociated Problem(s): Type 2 diabetes mellitus without complication (CMS/HCC) Well controlled.last A1c was 5.6. continue lifestyle management He chooses to check his FSG almost daily, advised that given his DM is well controlled, he does notneed to continue to do so Orders: freestyle (Prodigy Lancets) 28 gauge lancets; Use to check glucose daily glucose blood test strip; Use as instructed Hemoglobin A1c; Future * Cinthya Arguelles MD - 11/23/2024 9:30 AM ESTAssociated Problem(s): Vitamin D deficiency Continue vitamin D daily Orders: cholecalciferol (VITAMIN D-3) 50 mcg (2,000 unit) tablet; Take 2 tablets (4,000 Units total) by mouth 1 (one) time each day. Vitamin D 25 hydroxy; Future * Cinthya Arguelles MD - 11/23/2024 9:30 AM ESTAssociated Problem(s): Subclinical hyperthyroidism Resolved. Last TSH was wnl as above * Cinthya Arguelles MD - 11/23/2024 9:30 AM EST Images from the original note were not included. Chief Complaint Quincy Ivan is a 34 y.o. male presenting for Hypertension and Diabetes Subjective He is here with his care provider -[facility]ero GERD: Continues on omeprazole 20 mg daily which is effective. Denies nausea, vomiting, epigastric pain, dysphagia. Hypertension/chronic tachycardia: continues on lisinopril 5 mg daily and metoprolol 75 mg daily. Hecompleted Holter monitor last year which did not show any significant abnormal rhythms. It showed sinus tachycardia. No PACs, rare PVCs. Heart rate was 95 today. Denies medication side effects. BP isstable at 138/88. Denies SOB or chest pain. Palpitations have improved on increased dose of metoprolol. Echo was done on 11/03, results are pending Insomnia: Continues on hydroxyzine 50 mg nightly for sleep which is helpful. Also on clozapine which helps with sleep. He states that he sleeps really well, like a baby Bipolar disorder: Continues on clozapine and Depakote. Follows with psychiatry at [facility]. Type 2 diabetes: Not on medications. Denies numbness or tingling in lower extremities. Last A1c 5.6. Still checking his glucose sporadically. Advised he does not need to continue doing this vitamin D deficiency: Continues on daily vitamin D 4000U daily Chronic normocytic anemia: Likely related to depakote use. Saw GI in October.visit notes reviewed.Continues on iron supplement and colace daily Subclinical hyperthyroidism; saw endocrinology last year. Repeat TSH was normal The following portions of the patient's history were reviewed by a provider in this encounter and updated as appropriate: Problems Allergies: He has No Known Allergies. Medications: Current Outpatient Medications Medication Instructions blood glucose control, normal (OneTouch Ultra Control) solution Use to check FSG once a day blood-glucose meter kit 1 Each by Does not apply route daily. Use once daily to check fasting bloodsugar cholecalciferol (VITAMIN D-3) 4,000 Units, oral, Daily cloZAPine (CLOZARIL) 200 mg tablet Take 400 mg by mouth daily. divalproex (DEPAKOTE ER) 250 mg 24 hr tablet Take 1 Tablet by mouth 2 Times Daily. divalproex (DEPAKOTE ER) 500 mg 24 hr tablet Take 1 Tablet by mouth 2 Times Daily. docusate sodium (COLACE) 100 mg, oral, Daily ferrous sulfate 325 mg, oral, Daily, Do not crush, chew, or split. freestyle (Prodigy Lancets) 28 gauge lancets Use to check glucose daily glucose blood test strip Use as instructed lisinopriL (PRINIVIL,ZESTRIL) 5 mg, oral, Every morning metoprolol succinate (TOPROL-XL) 25 mg 24 hr tablet Do not crush or chew.Take 25 mg by mouth daily.Take with 50mg for total of 75mg daily metoprolol succinate (TOPROL-XL) 50 mg, oral, Every morning, Do not crush or chew. omeprazole (PRILOSEC) 20 mg, oral, Daily, Do not crush or chew. Depression Screening (PHQ2/9): Anxiety Screening: Social Influencer of Health (SIOH): Review of Systems: Review of Systems As noted in HPI Objective BP 138/88 Pulse 95 Temp 36.7 ??C (98.1 ??F) (Temporal) Resp 18 Ht 1.854 m (73 ) Wt 122 kg(270 lb) BMI 35.62 kg/m?? Physical Exam Constitutional: General: He is not in acute distress. Appearance: Normal appearance. He is obese. HENT: Head: Normocephalic and atraumatic. Cardiovascular: Rate and Rhythm: Normal rate and regular rhythm. Pulses: Normal pulses. Heart sounds: No murmur heard. Pulmonary: Effort: Pulmonary effort is normal. Breath sounds: Normal breath sounds. Neurological: General: No focal deficit present. Mental Status: He is alert and oriented to person, place, and time. Psychiatric: Mood and Affect: Mood normal. Lab Results Component Value Date WBC 9.5 10/10/2024 HGB 13.0 (L) 10/10/2024 HCT 41.5 (L) 10/10/2024 PLT 264 10/10/2024 CHOL 166 04/07/2024 TRIG 186 (A) 04/07/2024 HDL 37 (A) 04/07/2024 ALT 22 10/10/2024 AST 12 10/10/2024 NA 138 10/10/2024 K 4.7 10/10/2024 CL 105 10/10/2024 CREATININE 0.68 (L) 10/10/2024 BUN 13 10/10/2024 CO2 28 10/10/2024 TSH 1.03 09/15/2024 HGBA1C 5.6 08/08/2024 Lab Results Component Value Date TSH 1.03 09/15/2024 Assessment/Plan Assessment & Plan Gastroesophageal reflux disease without esophagitis Stable. Continue omeprazole Orders: omeprazole (PriLOSEC) [address] capsule; Take 1 capsule (20 mg total) by mouth 1 (one) time each day. Do not crush or chew. Primary hypertension Stable. Continue current meds. Orders: lisinopriL (PRINIVIL,ZESTRIL) 5 mg tablet; Take 1 tablet (5 mg total) by mouth 1 (one) time each day in the morning. metoprolol succinate (TOPROL-XL) 50 mg 24 hr tablet; Take 1 tablet (50 mg total) by mouth 1 (one) time each day in the morning. Do not crush or chew. Sinus tachycardia Stable. Continue metoprolol Orders: metoprolol succinate (TOPROL-XL) 25 mg 24 hr tablet; Do not crush or chew.Take 25 mg by mouth daily. Take with 50mg for total of 75mg daily metoprolol succinate (TOPROL-XL) 50 mg 24 hr tablet; Take 1 tablet (50 mg total) by mouth 1 (one) time each day in the morning. Do not crush or chew. Chronic anemia Continue iron supplement for a total of 3 more months. His anemia is likely related to depakote use Most recent iron studies done by GI in Oct shows normal iron levels but he still [...] or split. Ambulatory referral to Hematology; Future Primary insomnia Well controlled. Continue clozapine prescribed by psychiatry. Stop Hydroxyzine. There is potential for QTC prolongation with both meds. He is sleeping really well. Hydroxyzine may not be of additional benefit Bipolar affective disorder, remission status unspecified (CMS/HCC) Continue Psychiatry follow-up. Continue Depakote and clozapine Type 2 diabetes mellitus without complication, without long-term current use of insulin ([facility]) Well controlled.last A1c was 5.6. continue lifestyle management He chooses to check his FSG almost daily, advised that given his DM is well controlled, he does notneed to continue to do so Orders: freestyle (Prodigy Lancets) 28 gauge lancets; Use to check glucose daily glucose blood test strip; Use as instructed Hemoglobin A1c; Future Vitamin D deficiency Continue vitamin D daily Orders: cholecalciferol (VITAMIN D-3) 50 mcg (2,000 unit) tablet; Take 2 tablets (4,000 Units total) by mouth 1 (one) time each day. Vitamin D 25 hydroxy; Future Subclinical hyperthyroidism Resolved. Last TSH was wnl as above Advised to obtain updated COVID-vaccine at his local pharmacy. Cinthya Arguelles MD [address] Dept: [phone] Dept Date of Visit: 11/23/2024 documented in this encounter Plan of Treatment Upcoming Encounters Date Type Department Care Team (Late st Contact Info) Description 01/10/2025 3:30 PM EST Office Visit [facility] Hematology Oncology [address] [place] [id number] Peri Villatoro PA [address] [place] [address] 04/13/2025 8:00 AM EDT Office Visit [address] [phone] Cindy Carlos PA [address] [place] [address] Scheduled Referrals Name Type Priority Associated Diagnoses Order Schedule Ambulatory referral to Hematology Outpatient Referral Routine Chronic anemia 1 Occurrences starting 11/23/2024 until 11/23/2025 documented as of this encounter Results * Vitamin D 25 hydroxy (11/23/2024 10:49 AM EST) [facility] Vit D, 25-Hydroxy 39.2 30.0 - 80.0 ng/mL LAB CHEMISTRY METHOD 11/23/2024 2:27 PM EST [facility] Blood Venous blood specimen / Unknown Venipuncture / Unknown 11/23/2024 10:49 AM EST 11/23/2024 10:49 AM EST Cinthya Arguelles MD LAB BLOO D ORDERABLES Performing Organization Address City/[facility]/ZIP Co de Phone Number [facility] [address] [place] [address], [place] [phone] * Hemoglobin A1c (11/23/2024 10:49 AM EST) [facility] Hemoglobin A1C 5.8 <6.5 % LAB CHEMISTRY METHOD 11/23/2024 2:07 PM EST [facility] Mean Bld Glu Estim. 120 mg/dL LAB CHEMISTRY METHOD 11/23/2024 2:07 PM EST [facility] Blood Venous blood specimen / Unknown Venipuncture / Unknown 11/23/2024 10:49 AM EST 11/23/2024 10:49 AM EST Cinthya Arguelles MD LAB BLOO D ORDERABLES Performing Organization Address City/[facility]/ZIP Co de Phone Number [facility] [address] [place] [address], documented in this encounter Visit Diagnoses Diagnosis Gastroesophageal reflux disease without esophagitis- Primary Esophageal reflux Primary hypertension Unspecified essential hypertension Sinus tachycardia Other specified cardiac dysrhythmias Chronic anemia Unspecified anemia Primary insomnia Persistent disorder of initiating or maintaining sleep Bipolar affective disorder, remission status unspecified ([facility]) Type 2 diabetes mellitus without complication, without long-term current use of insulin ([facility]) Vitamin D deficiency Subclinical hyperthyroidism Thyrotoxicosis without mention of goiter or other cause, without mention of thyrotoxic crisis or storm documented in this encounter Discontinued Medications Medication Sig Discontinue Reason Start Date End Da te hydrOXYzine HCL (ATARAX) 50 mg tablet Take 1 Tablet by mouth at bedtime. Therapy completed 08/08/2024 11/23/2024 ferrous sulfate 325 mg (65 mg iron) EC tablet Take 1 Tablet by mouth daily. Reorder 08/16/2024 11/23/2024 docusate sodium (COLACE) 100 mg capsule Take 1 Capsule by mouth daily for 180 days. Reorder 08/16/2024 11/23/2024 lisinopriL (PRINIVIL,ZESTRIL) 5 mg tablet Take 1 Tablet by mouth every morning. Reorder 08/08/2024 11/23/2024 omeprazole (PriLOSEC) [address] capsule Take 1 Capsule by mouth daily. Reorder 08/08/2024 11/23/2024 cholecalciferol (VITAMIN D-3) 50 mcg (2,000 unit) tablet Take 2 Tablets by mouth daily. Reorder 08/08/2024 11/23/2024 glucose blood test strip USE DIRECTED TO CHECK FASTING BLOOD SUGAR ONCE DAILY. Reorder 08/12/2024 11/23/2024 metoprolol succinate (TOPROL-XL) 50 mg 24 hr tablet Take 1 tablet (50 mg total) by mouth 1 (one) time each day in the morning. Do not crush or chew. Reorder 09/26/2024 11/23/2024 metoprolol succinate (TOPROL-XL) 25 mg 24 hr tablet Do not crush or chew.Take 25 mg by mouth daily. Take with 50mg for total of 75mg daily Reorder 09/26/2024 11/23/2024 freestyle (Prodigy Lancets) 28 gauge lancets Use to check glucose daily Reorder 09/26/2024 11/23/2024 documented as of this encounter Care Teams Instrument Lens Grinder Relationship Specialty Start Date End Date Cinthya Arguelles MD [address] [place] [address] PCP - General Internal Medicine 07/21/22 documented as of this encounter
[2024-12-10 09:27] LABS: MANUAL DIFF FLAG NO
[2024-12-10 10:35] LABS: Basophils Percent Auto 0.1 % (0-2); Eosinophils Absolute Auto 0.1 X10*3/uL (0.0-0.4); Eosinophils Percent Auto 0.9 % (0-4); Hematocrit 39.1 % (42.0-52.0); Hemoglobin 12.7 g/dl (14.0-18.0); Imm Gran Abs Auto 0.04 X10*3/uL (0.00-0.03); Imm Gran Pct Auto 0.6 % (0.0-0.4); Lymphocytes Absolute Auto 2.3 X10*3/uL (1.2-4.9); Lymphocytes Percent Auto 34.6 % (20-40); Mean Corpuscular HGB Conc 32.5 g/dl (31.0-36.0); Mean Corpuscular Hemoglobin 27.3 pg (27.0-33.0); Mean Corpuscular Volume 83.9 fL (80.0-98.0); Mean Platelet Volume 9.5 fL (9.4-12.4); Monocytes Absolute Auto 0.6 X10*3/uL (0.1-1.2); Monocytes Percent Auto 8.4 % (2-11); Neutrophils Absolute Auto 3.8 x10*3/uL (2.0-8.3); Neutrophils Percent Auto 55.4 % (45-73); Platelet Count 252 X10*3/uL (160-400); Red Blood Count 4.66 X10*6/uL (4.60-5.80); Red Cell Distribution Width 12.4 % (11.0-16.0); White Blood Count 6.8 X10*3/uL (4.8-10.8)
== END 2024-12-10 09:10 | disposition home or self-care (01) ==
LOC: HO.LAB 09:09
PROVIDERS: Visit Provider Registered Nurse
DX: Z79.899 Other long term (current) drug therapy (principal)
CPT/HCPCS: 36415; 85025

== ENCOUNTER 2025-01-07 09:56 | Outpatient (REF) | payer MEDICARE, MEDICAID, SELFPAY ==
[2025-01-07 10:21] LABS: MANUAL DIFF FLAG NO
[2025-01-07 11:12] LABS: Basophils Percent Auto 0.2 % (0-2); Eosinophils Absolute Auto 0.1 X10*3/uL (0.0-0.4); Eosinophils Percent Auto 0.5 % (0-4); Hematocrit 39.5 % (42.0-52.0); Hemoglobin 12.8 g/dl (14.0-18.0); Imm Gran Abs Auto 0.08 X10*3/uL (0.00-0.03); Imm Gran Pct Auto 0.6 % (0.0-0.4); Lymphocytes Absolute Auto 2.1 X10*3/uL (1.2-4.9); Lymphocytes Percent Auto 15.5 % (20-40); Mean Corpuscular HGB Conc 32.4 g/dl (31.0-36.0); Mean Corpuscular Hemoglobin 27.4 pg (27.0-33.0); Mean Corpuscular Volume 84.4 fL (80.0-98.0); Mean Platelet Volume 9.7 fL (9.4-12.4); Monocytes Absolute Auto 1.2 X10*3/uL (0.1-1.2); Monocytes Percent Auto 8.6 % (2-11); Neutrophils Percent Auto 74.6 % (45-73); Platelet Count 232 X10*3/uL (160-400); Red Blood Count 4.68 X10*6/uL (4.60-5.80); Red Cell Distribution Width 12.4 % (11.0-16.0); White Blood Count 13.3 X10*3/uL (4.8-10.8)
== END 2025-01-07 09:57 | disposition home or self-care (01) ==
LOC: HO.LABR 09:56
PROVIDERS: PCP Family Medicine; Visit Provider Registered Nurse
DX: Z79.899 Other long term (current) drug therapy (principal)
CPT/HCPCS: 36415; 85025

== ENCOUNTER 2025-03-13 07:49 | Outpatient (REF) | payer MEDICARE, MEDICAID, SELFPAY ==
--- OUTSIDE RECORDS SUMMARY | 2025-03-13 07:52 | XMS_ITS | Clinical Summary ---
Author Organization [facility] USEREADY Address [address] [place] [address] Phone Care Team Providers Care Licensed Loan Officer Assistant Name Role Phone Cinthya Arguelles MD Primary Care Pr ovider Allergies No known active allergies Medications divalproex (DEPAKOTE ER) 500 mg 24 hr tablet Take 1 Tablet by mouth 2 Times Daily. 3 Active divalproex (DEPAKOTE ER) 250 mg 24 hr tablet Take 1 Tablet by mouth 2 Times Daily. 3 Active cloZAPine (CLOZARIL) 200 mg tablet Take 400 mg by mouth daily. Active blood glucose control, normal (OneTouch Ultra Control) solution Use to check FSG once a day 4 Active blood-glucose meter kit 1 Each by Does not apply route daily. Use once daily to check fasting blood sugar 4 Active freestyle (Prodigy Lancets) 28 gauge lancetsIndication s:Type 2 diabetes mellitus without complication, without long-term current use of insulin ([facility] V24, CMS/[facility] V28) Use to check glucose daily 100 each 1 5 Active metoprolol succinate (TOPROL-XL) 25 mg 24 hr tabletIndications :Sinus tachycardia Do not crush or chew.Take 25 mg by mouth daily. Take with 50mg for total of 75mg daily 90 tablet 1 5 Active metoprolol succinate (TOPROL-XL) 50 mg 24 hr tabletIndications :Primary hypertension,Sinu s tachycardia Take 1 tablet (50 mg total) by mouth 1 (one) time each day in the morning. Take with 25mg tablet for total daily dose of 75mg daily 30 tablet 5 5 Active lisinopriL (PRINIVIL,ZESTRIL ) 5 mg tabletIndications :Primary hypertension TAKE 1 TABLET BY MOUTH DAILY EVERY MORNING 30 tablet 5 5 Active omeprazole (PriLOSEC) [address] capsuleIndication s:Gastroesophagea l reflux disease without esophagitis TAKE (1) CAPSULE BY MOUTH DAILY 30 capsule 5 5 Active cholecalciferol (VITAMIN D-3) 50 mcg (2,000 unit) tabletIndications :Vitamin D deficiency TAKE (2) TABLETS BY MOUTH DAILY. 60 tablet 5 5 Active ferrous sulfate 324 mg (65 mg elemental iron) EC tablet TAKE 1 TABLET BY MOUTH DAILY. 30 tablet 5 5 Active docusate sodium (COLACE) 100 mg capsuleIndication s:Chronic anemia TAKE 1 CAPSULE BY MOUTH DAILY. 30 capsule 5 5 Active Prodigy No Coding test stripIndications: Type 2 diabetes mellitus without complication, without long-term current use of insulin ([facility] V24, [facility] V28) USE DIRECTED TO CHECK FASTING BLOOD SUGAR ONCE DAILY. 100 strip 1 5 Active folic acid (FOLVITE) 1 mg tablet Take 1 tablet (1 mg total) by mouth every other day. 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 [...] not crush or chew. Bipolar affective disorder ([facility] V24, CMS/HCC V28) 09/04/2011 Assessment & Plan (11/23/2024 12:24 PM [...] 25 hydroxy; Future Type 2 diabetes mellitus wit hout complication ([facility] V24, [facility] V28) 06/04/2011 Assessment & Plan (11/23/2024 12:24 PM [...] (BMI) of 35.0 to 35.9 in adult ([facility] V24, [facility] V28) Encounters Date Type Department Care Team Description 01/10/2025 3:30 PM EST Office Visit [facility] Hematology Oncology [address] [place] [address] Peri Villatoro PA Chronic anemia from Last 3 Months Immunizations Name Administration [...] complication, not stated as uncontrolled Bipolar affective ([facility] V 24, [facility] V28) DX:Bipolar affective ([facility]) Bipolar affective disorder ( [facility] V24, [facility] V28) 09/04/2011 DX:Bipolar affective disorde r ([facility]) Asthma 06/04/2011 DX:Asthma Family History Medical History Relation Name Comments Diabetes Father Other cancer Father Liver Cancer Blindness Neg Hx Breast cancer Neg Hx Cataracts Neg Hx Colon cancer Neg Hx Glaucoma Neg Hx Macular degeneration Neg Hx Strabismus Neg Hx Relation Name Status Comments Father Mother Social History Tobacco Use Types Packs/Day Years Used Date Smoking Tobacco: Never Smokeless Tobacco: Never Tobacco Cessation:Counseling Given: Not Answered Alcohol Use Standard Drinks/Week Comments No 0 (1 standard drink = 0.6 oz pur e alcohol) Sex and Gender Information Value Date Recorded Sex Assigned at Not on file Legal Sex Male 10:20 AM EST Gender Identity Not on file Sexual Orientation Not on file Obstetrics History Last Filed Vital Signs Vital Sign Reading Time Taken Comments Blood Pressure 129/74 01/10/2025 3:33 PM EST Pulse 107 01/10/2025 3:33 PM EST Temperature 35.9 ??C (96.7 ??F) 01/10/2025 3:33 PM ES T Respiratory Rate 18 11/23/2024 9:30 AM EST Oxygen Saturation 98% 01/10/2025 3:33 PM EST Inhaled Oxygen Concentration - - Weight 122 kg (268 lb) 01/10/2025 3:33 PM EST Height 185.4 cm (6' 1 ) 01/10/2025 3:33 PM EST Body Mass Index 35.36 01/10/2025 3:33 PM EST Plan of Treatment Upcoming Encounters Date Type Department Care Team (Late st Contact Info) Description 04/13/2025 8:00 AM EDT Office Visit Adult Medicine [address] [phone] Cindy Carlos PA [address] [place] [address] Health Maintenance Due Date Last Done Comments [...] 06/02/2024 Diabetes: Annual GFR (Glomerular Filtration Rate) 01/10/2026 01/10/2025, 10/10/2024, 04/07/2024, Additional history exists Hypertension/CHF/CAD Annual BMP Blood Test 01/10/2026 01/10/2025, 10/10/2024, 04/07/2024, Additional history exists Cholesterol Screening (Lipid Panel) 04/07/2029 04/07/2024, 04/07/2024 [...] patient's age to complete this topic Meningococcal B Vaccine Aged Out No l onger eligible based on patient's age to complete this topic RSV Immunization Patients Under 20 months Aged Out No longer eligible based on patient's age to complete this topic Varicella Vaccines Aged Out No longer eligible based on patient's age to complete this topic Procedures Procedure Name Priority Date/Time Associated Diagnosis Comments CBC WITH AUTO DIFFERENTIAL Routine 01/10/2025 4:02 PM EST Chronic anemia VITAMIN B12 AND FOLATE Routine 4:02 PM EST Chronic anemia RETICULOCYTE COUNT Routine 01/10/2025 4: 02 PM EST Chronic anemia LACTATE DEHYDROGENASE Routine 01/10/2025 4:02 PM EST Chronic anemia HAPTOGLOBIN Routine 01/10/2025 4:02 PM EST Chronic anemia FERRITIN Routine 01/10/2025 4:02 PM EST Chronic anemia ERYTHROPOIETIN Routine 01/10/2025 4:02 PM EST Chronic anemia COMPREHENSIVE METABOLIC PANEL Routine 01/10/2025 4:02 PM EST Chronic anemia CBC AND DIFFERENTIAL Routine 01/10/2025 4:02 PM EST Chronic anemia IRON AND TIBC Routine 01/10/2025 4:02 PM EST Chronic anemia HEMOGLOBIN A1C Routine 11/23/2024 10:49 AM EST Type 2 diabetes mellitus without complication, without long-term current use of insulin ([facility] V24, [facility] V28) DIABETES EYE EXAM Routine 06/02/2024 URINE ALBUMIN CREATININE RATIO Routine 04/11/2024 DEPRESSION SCREENING Routine 04/07/2024 LIPID PANEL Routine 04/07/2024 DIABETES FOOT EXAM Routine 04/07/2024 HEPATITIS C SCREENING Routine 01/13/2018 from Last 3 Months or Most Recently Relevant to Health Maintenance Results * (ABNORMAL) Vitamin B12 and folate (01/10/2025 4:02 PM EST) [facility] Signature Vitamin B-12 930(H) 250 - 900 pcg/mL LAB CHEMISTRY METHOD 01/10/2025 5:38 PM EST [facility] Folate 9.8 2.8 - 17.0 ng/ml LAB CHEMISTRY METHOD 01/10/2025 5:38 PM EST [facility] Blood Venous blood specimen / Unknown Venipuncture / Unknown 01/10/2025 4:02 PM EST 01/10/2025 4:31 PM EST us Peri CEDEÑO LAB BLOOD ORDERABLES Final Re sult [facility] [address] [place] [address], [place] [phone] * (ABNORMAL) CBC auto differential (01/10/2025 4:02 PM EST) [facility] WBC 11.7(H) 4.8 - 10.8 K/mcL LAB HEMETOLOGY METHOD 01/10/2025 4:58 PM [facility] RBC 4.60 4.50 - 5.50 M/mcL LAB HEMETOLOGY METHOD 01/10/2025 4:58 PM [facility] Hemoglobin 12.7(L) 13.5 - 17.5 g/dL LAB HEMETOLOGY METHOD 01/10/2025 4:58 PM [facility] Hematocrit 38.1(L) 42.0 - 54.0 % LAB HEMETOLOGY METHOD 01/10/2025 4:58 PM [facility] MCV 83.4 79.0 - 98.0 FL LAB HEMETOLOGY METHOD 01/10/2025 4:58 PM [facility] MCH 27.8 27.0 - 32.0 pcg LAB HEMETOLOGY METHOD 01/10/2025 4:58 PM [facility] MCHC 33.3 32.0 - 37.0 g/dL LAB HEMETOLOGY METHOD 01/10/2025 4:58 PM [facility] RDW 12.0 11.0 - 15.0 % LAB HEMETOLOGY METHOD 01/10/2025 4:58 PM [facility] Platelets 291 130 - 400 K/mcL LAB HEMETOLOGY METHOD 01/10/2025 4:58 PM [facility] MPV 9.3 7.0 - 11.0 FL LAB HEMETOLOGY METHOD 01/10/2025 4:58 PM [facility] NRBC 0.0 <1.0 % LAB HEMETOLOGY METHOD 01/10/2025 4:58 PM [facility] NRBC Absolute 0.00 <0.10 K/mcL LAB HEMETOLOGY METHOD 01/10/2025 4:58 PM [facility] Neutrophils Relative 62.9 % LAB HEMETOLOGY METHOD 01/10/2025 4:58 PM [facility] Lymphocytes Relative 23.2 % LAB HEMETOLOGY METHOD 01/10/2025 4:58 PM [facility] Monocytes Relative 11.1 % LAB HEMETOLOGY METHOD 01/10/2025 4:58 PM [facility] Eosinophils Relative 0.8 % LAB HEMETOLOGY METHOD 01/10/2025 4:58 PM [facility] Basophils Relative 0.5 % LAB HEMETOLOGY METHOD 01/10/2025 4:58 PM [facility] Immature Granulocytes Relative 1.5 % LAB HEMETOLOGY METHOD 01/10/2025 4:58 PM [facility] Neutrophils Absolute 7.33(H) 1.50 - 7.00 K/mcL LAB HEMETOLOGY METHOD 01/10/2025 4:58 PM [facility] Lymphocytes Absolute 2.70 1.00 - 5.00 K/mcL LAB HEMETOLOGY METHOD 01/10/2025 4:58 PM [facility] Monocytes Absolute 1.29(H) 0.20 - 1.00 K/mcL LAB HEMETOLOGY METHOD 01/10/2025 4:58 PM [facility] Eosinophils Absolute 0.09 0.00 - 0.50 K/mcL LAB HEMETOLOGY METHOD 01/10/2025 4:58 PM [facility] Basophils Absolute 0.06 0.00 - 0.20 K/mcL LAB HEMETOLOGY METHOD 01/10/2025 4:58 PM [facility] Immature Granulocytes Absolute 0.18(H) 0.00 - 0.03 K/mcL LAB HEMETOLOGY METHOD 01/10/2025 4:58 PM [facility] Blood Venous blood specimen / Unknown Venipuncture / Unknown 01/10/2025 4:02 PM EST 01/10/2025 4:32 PM EST Peri CEDEÑO LAB BLOOD ORDERABLES Final Re sult [facility] [address] [place] [address], [place] [phone] * Erythropoietin (01/10/2025 4:02 PM EST) Erythropoietin 7.0 2.6 - 18.5 mIU/mL 01/13/2025 10:50 AM EST [facility] Comment: Test performed at [facility], [address], [place], [place] ??[address] ? [phone] Laura Braxton MD, PhD - Stencil Printer Blood Venous blood specimen / Unknown Venipuncture / Unknown 01/10/2025 4:02 PM EST 01/10/2025 4:31 PM EST us Peri CEDEÑO LAB BLOOD ORDERABLES Final Re sult [facility] [address] [place] [address] * (ABNORMAL) Iron and TIBC (01/10/2025 4:02 PM EST) Iron 31(L) 50 - 160 mcg/dL LAB CHEMISTRY METHOD 01/10/2025 5:38 PM EST [facility] TIBC 244(L) 250 - 450 mcg/dL LAB CHEMISTRY METHOD 01/10/2025 5:38 PM EST [facility] Iron Saturation 13(L) 20 - 50 % LAB CHEMISTRY METHOD 01/10/2025 5:38 PM EST [facility] Blood Venous blood specimen / Unknown Venipuncture / Unknown 01/10/2025 4:02 PM EST 01/10/2025 4:31 PM EST us Peri CEDEÑO LAB BLOOD ORDERABLES Final Re sult Performing Organization Address [facility]/ZIP Co de Phone Number [facility] [address] [place] [address], [place] [phone] * (ABNORMAL) Reticulocyte count (01/10/2025 4:02 PM EST) Retic Ct Abs 0.050 0.030 - 0.090 M/mcL LAB HEMETOLOGY METHOD 01/10/2025 4:58 PM EST [facility] Retic Ct Pct 1.0 0.7 - 1.7 % LAB HEMETOLOGY METHOD 01/10/2025 4:58 PM [facility] Immature Retic Fract 13.5 2.3 - 15.9 % LAB HEMETOLOGY METHOD 01/10/2025 4:58 PM EST [facility] Reticulocyte Hemoglobin 28.6(L) >29.0 pcg LAB HEMETOLOGY METHOD 01/10/2025 4:58 PM EST [facility] Blood Venous blood specimen / Unknown Venipuncture / Unknown 01/10/2025 4:02 PM EST 01/10/2025 4:32 PM EST us Peri CEDEÑO LAB BLOOD ORDERABLES Final Re sult Performing Organization Address City/[facility]/ZIP Co de Phone Number [facility] [address] [place] [address], [place] [phone] * Lactate dehydrogenase (01/10/2025 4:02 PM EST) LDH 174 120 - 246 unit/L LAB CHEMISTRY METHOD 01/10/2025 5:12 PM EST [facility] Blood Venous blood specimen / Unknown Venipuncture / Unknown 01/10/2025 4:02 PM EST 01/10/2025 4:31 PM EST Peri CEDEÑO LAB BLOOD ORDERABLES Final Re sult Performing Organization Address [facility]/ZIP Co de Phone Number [facility] [address] [place] [address], [place] [phone] * (ABNORMAL) Haptoglobin (01/10/2025 4:02 PM EST) [facility] Haptoglobin 368(H) 16 - 200 mg/dL LAB CHEMISTRY METHOD 01/10/2025 5:12 PM EST [facility] Blood Venous blood specimen / Unknown Venipuncture / Unknown 01/10/2025 4:02 PM EST 01/10/2025 4:31 PM EST Peri CEDEÑO LAB BLOOD ORDERABLES Final Re sult Performing Organization Address [facility] Co de Phone Number [facility] [address] [place] [address], [place] [phone] * Ferritin (01/10/2025 4:02 PM EST) [facility] Ferritin 144 26 - 388 ng/mL LAB CHEMISTRY METHOD 01/10/2025 5:38 PM EST [facility] Blood Venous blood specimen / Unknown Venipuncture / Unknown 01/10/2025 4:02 PM EST 01/10/2025 4:31 PM EST Peri CEDEÑO LAB BLOOD ORDERABLES Final Re sult Performing Organization Address [facility]/ZIP Co de Phone Number [facility] [address] [place] [address], [place] [phone] * Comprehensive metabolic panel (01/10/2025 4:02 PM EST) [facility] Sodium 136 133 - 145 mmol/L LAB CHEMISTRY METHOD 01/10/2025 5:38 PM EST [facility] Potassium 4.4 3.5 - 5.5 mmol/L LAB CHEMISTRY METHOD 01/10/2025 5:38 PM [facility] Chloride 102 96 - 110 mmol/L LAB CHEMISTRY METHOD 01/10/2025 5:38 PM [facility] CO2 25 21 - 32 mmol/L LAB CHEMISTRY METHOD 01/10/2025 5:38 PM [facility] Anion Gap 9 3 - 11 LAB CHEMISTRY METHOD 01/10/2025 5:38 PM [facility] Glucose 98 70 - 100 mg/dL LAB CHEMISTRY METHOD 01/10/2025 5:38 PM [facility] BUN 13 5 - 25 mg/dL LAB CHEMISTRY METHOD 01/10/2025 5:38 PM [facility] Creatinine 0.78 0.70 - 1.30 mg/dL LAB CHEMISTRY METHOD 01/10/2025 5:38 PM [facility] eGFR 119 >=60 mL/min/1. 73m2 LAB CHEMISTRY METHOD 01/10/2025 5:38 PM [facility] Comment:Calculation based on the??Chronic Kidney Disease Epidemiology Collaboration (CKD-EPI) equation refit??without adjustment for race. BUN/Creatinine Ratio 16.7 LAB CHEMISTRY METHOD 01/10/2025 5:38 PM [facility] Calcium 9.2 8.5 - 10.5 mg/dL LAB CHEMISTRY METHOD 01/10/2025 5:38 PM [facility] AST (SGOT) 10 10 - 42 unit/L LAB CHEMISTRY METHOD 01/10/2025 5:38 PM [facility] ALT (SGPT) 14 10 - 60 unit/L LAB CHEMISTRY METHOD 01/10/2025 5:38 PM [facility] Alkaline Phosphatase 61 42 - 121 unit/L LAB CHEMISTRY METHOD 01/10/2025 5:38 PM [facility] Total Protein 7.5 6.0 - 8.0 g/dL LAB CHEMISTRY METHOD 01/10/2025 5:38 PM EST [facility] Albumin 3.7 3.2 - 5.0 g/dL LAB CHEMISTRY METHOD 01/10/2025 5:38 PM EST [facility] Total Bilirubin 0.4 0.0 - 1.4 mg/dL LAB CHEMISTRY METHOD 01/10/2025 5:38 PM EST [facility] Blood Venous blood specimen / Unknown Venipuncture / Unknown 01/10/2025 4:02 PM EST 01/10/2025 4:31 PM EST Peri CEDEÑO LAB BLOOD ORDERABLES Final Re sult [facility] [address] [place] [address], [place] [phone] * Hemoglobin A1c (11/23/2024 10:49 AM EST) [facility] Hemoglobin A1C 5.8 <6.5 % LAB CHEMISTRY METHOD 11/23/2024 2:07 PM EST [facility] Mean Bld Glu Estim. 120 mg/dL LAB CHEMISTRY METHOD 11/23/2024 2:07 PM [facility] Blood Venous blood specimen / Unknown Venipuncture / Unknown 11/23/2024 10:49 AM EST 11/23/2024 10:49 AM EST Cinthya Arguelles MD LAB BLOOD ORDERA BLES Final Result [facility] [address] [place] [address], [place] [phone] * Diabetes Eye Exam (06/02/2024) [facility] Diabetes: Annual Retina Eye Exam abstracted Historical Provider HEALTH MAINTENANCE Final Result * Urine Albumin Creatinine Ratio (04/11/2024) [facility] Urine Albumin Creatinine Ratio abstracted [facility] Provider HEALTH MAINTENANCE Final Result * Depression Screening (04/07/2024) [facility] Depression Screening abstracted [facility] Provider HEALTH MAINTENANCE Final Result * Diabetes Foot Exam (04/07/2024) [facility] Diabetes: Annual Foot Exam abstracted [facility] Provider HEALTH MAINTENANCE Final Result * (ABNORMAL) Lipid panel (04/07/2024) [facility] LDL/HDL Ratio 5(A) 0 - 4 Triglycerides 186(A) 0 - 150 mg/dL Cholesterol 166 0 - 200 mg/dL HDL 37(A) >=40 mg/dL LDL Cholesterol 92 0 - 100 mg/dL Blood Venous blood specimen / Unknown Result [facility] Provider LAB BLOOD ORDERABLES Cristy l Result * Hepatitis C Screening (01/13/2018) [facility] Hepatitis C Screening abstracted Result [facility] Provider HEALTH MAINTENANCE Final Result from Last 3 Months or Most Recently Relevant to Health Maintenance Insurance MEDICARE MEDICAID - [place] Care Teams Licensed Loan Officer Assistant Relationship Specialty Start Date End Date Cinthya Arguelles MD [address], [place] PCP - General Internal Medicine 07/21/22
[2025-03-13 08:02] LABS: MANUAL DIFF FLAG NO
[2025-03-13 08:27] LABS: Basophils Percent Auto 0.4 % (0-2); Eosinophils Absolute Auto 0.3 X10*3/uL (0.0-0.4); Eosinophils Percent Auto 3.9 % (0-4); Hemoglobin 12.5 g/dl (14.0-18.0); Imm Gran Abs Auto 0.14 X10*3/uL (0.00-0.03); Lymphocytes Absolute Auto 2.6 X10*3/uL (1.2-4.9); Lymphocytes Percent Auto 37.7 % (20-40); Mean Corpuscular HGB Conc 32.1 g/dl (31.0-36.0); Mean Corpuscular Hemoglobin 27.4 pg (27.0-33.0); Mean Corpuscular Volume 85.5 fL (80.0-98.0); Mean Platelet Volume 9.6 fL (9.4-12.4); Monocytes Absolute Auto 0.6 X10*3/uL (0.1-1.2); Monocytes Percent Auto 7.9 % (2-11); Neutrophils Absolute Auto 3.3 x10*3/uL (2.0-8.3); Neutrophils Percent Auto 48.1 % (45-73); Platelet Count 232 X10*3/uL (160-400); Red Blood Count 4.56 X10*6/uL (4.60-5.80); Red Cell Distribution Width 12.3 % (11.0-16.0); White Blood Count 6.9 X10*3/uL (4.8-10.8)
== END 2025-03-13 07:50 | disposition home or self-care (01) ==
LOC: HO.LABR 07:49
PROVIDERS: Visit Provider Registered Nurse
DX: Z79.899 Other long term (current) drug therapy (principal)
CPT/HCPCS: 36415; 85025

== ENCOUNTER 2025-05-09 07:38 | Outpatient (REF) | payer MEDICARE, MEDICAID, SELFPAY ==
--- OUTSIDE RECORDS SUMMARY | 2025-05-09 07:42 | XMS_ITS | Encounter Summary ---
Author Organization [facility] Address [address] [place] [address] Care Team Providers Care Chlorine Operator Name Role Phone Cinthya Arguelles MD Primary Care Pr ovider Reason for Visit * Reason Onset Date Comments Labs Only 05/03/2025 Encounter Details Date Type Department Care Team ([facility] Contact Info) Description 05/03/[address] [phone] Cinthya Arguelles MD [address] [place] [id number] Labs Only Social History Tobacco Use Types Packs/Day Years Used Date Smoking Tobacco: Never Smokeless Tobacco: Never Alcohol Use Standard Drinks/Week Comments No 0 (1 standard drink = 0.6 oz pur e alcohol) Sex and Gender Information Value Date Recorded Sex Assigned at Not on file Legal Sex Male 10:20 AM EST Gender Identity Not on file Sexual Orientation Not on file documented as of this encounter Progress Notes * Anahi Tamez - 05/03/2025 2:34 PM EDT [facility] calling asking if a lab was drawn for Depakote. States they are calling on behalf of the psychiatrist, please advise. Looking to speak with someone Molly ( [facility]) [phone] option 6 documented in this encounter Plan of Treatment Upcoming Encounters Date Type Department Care Team ([facility] Contact Info) Description 07/03/2025 11:00 AM EDT Consult Orthopedic Surgery - [place] [address] [phone] Carson Montaño, DPSherman [address] [address] 10/16/2025 8:30 AM EST Office Visit Adult Medicine [address] [phone] Cinthya Arguelles MD [address] [place] [address] 04/19/2026 8:00 AM EDT Office Visit Adult [address] [phone] Cinthya Arguelles MD [address] [place] [address] documented as of this encounter Visit Diagnoses Not on filedocumented in this encounter Care Teams Chlorine Operator Relationship Specialty Start Date End Date Cinthya Arguelles MD [address] [facility], [place] PCP - General Internal Medicine 07/21/22 documented as of this encounter
[2025-05-09 08:41] LABS: Alanine Aminotransferase 15 U/L (0-40); Albumin Level 4.3 g/dL (3.5-5.0); Alkaline Phosphatase 44 U/L (39-117); Aspartate Amino Transferase 18 U/L (5-37); Total Protein 7.0 g/dL (6.5-8.0)
== END 2025-05-09 07:39 | disposition home or self-care (01) ==
LOC: HO.LABR 07:38
PROVIDERS: Visit Provider Clinical Nurse Specialist Psychiatric/Mental Health, Adult
DX: Z13.89 Encounter for screening for other disorder (principal)
CPT/HCPCS: 36415; 80076; 80164

== ENCOUNTER 2025-06-26 07:55 | Outpatient (REF) | payer MEDICARE, MEDICAID, SELFPAY ==
--- OUTSIDE RECORDS SUMMARY | 2025-06-26 07:58 | XMS_ITS | Clinical Summary ---
Author Organization [facility] Address [address] [place] [phone] Phone Care Team Providers Care Supervisor Front Name Role Phone Cinthya Arguelles MD Primary [...] complication, without long-term current use of insulin ([facility] V24, CMS/[facility] V28) Use to check glucose daily 100 [...] 75mg daily 30 tablet 5 5 Active cholecalciferol (VITAMIN D-3) 50 [...] complication, without long-term current use of insulin ([facility] V24, [facility] V28) USE DIRECTED TO CHECK FASTING BLOOD SUGAR ONCE DAILY. 100 strip 1 5 Active folic acid (FOLVITE) 1 mg tablet Take 1 tablet (1 mg total) by mouth every other day. 45 each 3 5 03/07/20 26 Active loratadine (CLARITIN) 10 mg tablet Take 1 tablet (10 mg total) by mouth 1 (one) time each day if needed for allergies. 30 each 2 5 Active lisinopriL (PRINIVIL,ZESTRIL ) 5 mg tabletIndications :Primary hypertension Take 1 tablet (5 mg total) by mouth 1 (one) time each day in the morning. 30 tablet 5 5 Active omeprazole (PriLOSEC) [address] capsuleIndication s:Gastroesophagea l reflux disease without esophagitis Take 1 capsule (20 mg total) by mouth 1 (one) time each day. 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 Bipolar affective disorder (CMS/HCC V24, CMS/HCC V28) 09/04/2011 Assessment & Plan [...] Type 2 diabetes mellitus wit hout complication ([facility] V24, [facility] V28) 06/04/2011 Assessment & Plan (11/23/2024 12:24 [...] (BMI) of 35.0 to 35.9 in adult ([facility] V24, [facility] V28) Encounters Date Type Department Care Team Description 05/03/2025 Telephone Adult Medicine [address] [phone] Cinthya Arguelles MD Labs Only 04/13/2025 8:00 AM EDT Office Visit Adult Medicine [address] [phone] Cindy Carlos PA Annual physical exam (Primary Dx); Bipolar affective disorder, remission status unspecified ([facility] V24, [facility] V28); Type 2 diabetes mellitus without complication, without long-term current use of insulin ([facility] V24, [facility] V28); Subclinical hyperthyroidism; Primary hypertension; Gastroesophageal reflux disease, unspecified whether esophagitis present; Thickened nail from Last 3 Months Immunizations Name Administration [...] complication, not stated as uncontrolled Bipolar affective ([facility] V 24, [facility] V28) DX:Bipolar affective ([facility]) Bipolar affective disorder ( [facility] V24, [facility] V28) 09/04/2011 DX:Bipolar affective disorde r ([facility]) Asthma 06/04/2011 DX:Asthma Family History Medical History [...] Sign Reading Time Taken Comments Blood Pressure 138/76 04/13/2025 8:10 AM EDT Pulse 97 04/13/2025 8:10 AM EDT Temperature 36.7 C (98.1 F) 04/13/2025 8:10 AM EDT Respiratory Rate 18 11/23/2024 9:30 AM EST Oxygen Saturation 97% 04/13/2025 8:10 AM EDT Inhaled Oxygen Concentration - - Weight 128 kg (281 lb 14.4 oz) 04/13/2025 8:10 A M EDT Height 185.4 cm (6' 0.99 ) 04/13/2025 8:10 AM ED T Body Mass Index 37.2 04/13/2025 8:10 AM EDT Plan of Treatment Upcoming Encounters Date Type Department Care Team (Late st Contact Info) Description 07/03/2025 11:00 AM EDT Consult Orthopedic Surgery - [place] [id number] [phone] Carson Montaño DPM [address] [address] 10/16/2025 8:30 AM EST Office Visit Adult [address] [phone] Cinthya Arguelles MD [address] [place] [phone] 04/19/2026 8:00 AM EDT Office Visit Adult Medicine [address] [phone] Cinthya Arguelles MD [address] [place] [phone] Health Maintenance Due Date Last Done Comments Pneumococcal Vaccine: Pediatrics (0 to 5 Years) and At-Risk Patients (6 to 49 Years) (2 of 2 - PCV) 12/15/2014 12/15/2013 HIV Screening 10/07/2022 Medicare Annual Wellness Visit 10/07/2022 COVID-19 Vaccine ( season) 2024 01/28/2021, 01/07/2021 Depression Screening 11/09/2024 04/07/2024 Influenza Vaccine (#1) 2025 , 12/29/2022, 10/17/2019, Additional history exists Diabetes: Blood Sugar Control Test (HGBA1C) 10/13/2025 04/13/2025, 11/23/2024, 08/08/2024, Additional history exists Diabetes: Annual Foot Exam 04/13/2026 04/13/2025, Diabetes: Annual GFR (Glomerular Filtration Rate) 04/13/2026 04/13/2025, 01/10/2025, 10/10/2024, Additional history exists Hypertension/CHF/CAD Annual BMP Blood Test 04/13/2026 04/13/2025, 01/10/2025, 10/10/2024, Additional history exists Social Influencers of Health Screening 04/13/2026 04/13/2025 Diabetes: Annual Urine Albumin-Creatinine Ratio (uACR) 04/14/2026 04/14/2025, 04/11/2024 Diabetes: Annual Retina Eye Exam 06/05/2026 06/05/2025, 06/02/2024 Cholesterol Screening (Lipid Panel) 04/13/2030 04/13/2025, 04/07/2024, 04/07/2024 DTaP,Tdap,and Td Vaccines (3 - Td or Tdap) 12/29/2032 12/29/2022, 06/29/2012 Hepatitis C Screening Completed 01/13/2018 HIB Vaccines Aged Out No longer eligi [...] Procedure Name Priority Date/Time Associated Diagnosis Comments EXTERNAL DIABETIC RETINA EYE EXAM 06/05/2025 MICROALBUMIN CREATININE URINE RATIO Routine 04/14/2025 8:43 AM EDT Annual physical exam Routine general medical examination at a [facility] CBC WITH AUTO DIFFERENTIAL Routine 04/13/2025 8:45 AM EDT Annual physical exam COMPREHENSIVE METABOLIC PANEL Routine 04/13/2025 8:45 AM EDT Annual physical exam CBC AND DIFFERENTIAL Routine 04/13/2025 8:45 AM EDT Annual physical exam HEMOGLOBIN A1C Routine 04/13/2025 8:45 AM EDT Annual physical exam LIPID PANEL WITH REFLEX TO DIRECT LDL Routine 04/13/2025 8:45 AM EDT Annual physical exam THYROID STIMULATING HORMONE WITH REFLEX TO FREE T4 AND FREE T3 Routine 04/13/2025 8:45 AM EDT Annual physical exam DEPRESSION SCREENING Routine 04/07/2024 DIABETES FOOT EXAM Routine 04/07/2024 HEPATITIS C SCREENING Routine 01/13/2018 from Last 3 Months or Most Recently Relevant to Health Maintenance Results * External Diabetic Retina Eye Exam Report (06/05/2025) Anatomical Region Laterality Modality Ultrasound Provider [facility] US PROCEDURES Final Result * Microalbumin creatinine urine ratio (04/14/2025 8:43 AM EDT) Creatinine, Urine 133.0 mg/dL LAB CHEMISTRY METHOD 04/14/2025 12:16 PM EDT [facility] Microalb, Ur 5.8 0.0 - 29.0 mg/L LAB CHEMISTRY METHOD 04/14/2025 12:16 PM EDT [facility] Microalb/Creat Ratio 4 <30 mg/g creat LAB CHEMISTRY METHOD 04/14/2025 12:16 PM EDT [facility] Urine Urine specimen obtained by clean catch procedure / Unknown Non-blood Collection / Unknown 04/14/2025 8:43 AM EDT 04/14/2025 8:43 AM EDT us Cindy CEDEÑO LAB URINE ORDERABLES Final Re sult [facility] [address] [place] [address], * Thyroid stimulating hormone with reflex to free t4 and free t3 (04/13/2025 8:45 AM EDT) TSH 0.81 0.40 - 4.00 mcIU/mL LAB CHEMISTRY METHOD 04/13/2025 2:29 PM EDT [facility] Blood Venous blood specimen / Unknown Venipuncture / Unknown 04/13/2025 8:45 AM EDT 04/13/2025 8:45 AM EDT us Cindy CEDEÑO LAB BLOOD ORDERABLES Final Re sult [facility] [address] [place] [address], [place] [phone] * Lipid panel with reflex to direct LDL (04/13/2025 8:45 AM EDT) Cholesterol 156 0 - 200 mg/dL LAB CHEMISTRY METHOD 04/13/2025 12:42 PM EDT [facility] Triglycerides 118 0 - 150 mg/dL LAB CHEMISTRY METHOD 04/13/2025 12:42 PM EDT [facility] HDL 40 >=40 mg/dL LAB CHEMISTRY METHOD 04/13/2025 12:42 PM EDT [facility] LDL Calculated 92 0 - 100 mg/dL LAB CHEMISTRY METHOD 04/13/2025 12:42 PM EDT [facility] VLDL Cholesterol Tarun 23.6 mg/dL LAB CHEMISTRY METHOD 04/13/2025 12:42 PM EDT [facility] Non HDL Chol. (LDL+VLDL) 116 <145 mg/dL LAB CHEMISTRY METHOD 04/13/2025 12:42 PM EDT [facility] Chol/HDL Ratio 3.9 0.0 - 4.4 LAB CHEMISTRY METHOD 04/13/2025 12:42 PM EDT [facility] Blood Venous blood specimen / Unknown Venipuncture / Unknown 04/13/2025 8:45 AM EDT 04/13/2025 8:45 AM EDT us Cindy CEDEÑO LAB BLOOD ORDERABLES Final Re sult [facility] [address] [place] [address], [place] [phone] * (ABNORMAL) CBC auto differential (04/13/2025 8:45 AM EDT) WBC 7.3 4.8 - 10.8 K/mcL LAB HEMETOLOGY METHOD 04/13/2025 10:32 AM [facility] RBC 4.80 4.50 - 5.50 M/mcL LAB HEMETOLOGY METHOD 04/13/2025 10:32 AM [facility] Hemoglobin 13.2(L) 13.5 - 17.5 g/dL LAB HEMETOLOGY METHOD 04/13/2025 10:32 AM [facility] Hematocrit 40.3(L) 42.0 - 54.0 % LAB HEMETOLOGY METHOD 04/13/2025 10:32 AM [facility] MCV 84.5 79.0 - 98.0 FL LAB HEMETOLOGY METHOD 04/13/2025 10:32 AM [facility] MCH 27.7 27.0 - 32.0 pcg LAB HEMETOLOGY METHOD 04/13/2025 10:32 AM [facility] MCHC 32.8 32.0 - 37.0 g/dL LAB HEMETOLOGY METHOD 04/13/2025 10:32 AM [facility] RDW 12.3 11.0 - 15.0 % LAB HEMETOLOGY METHOD 04/13/2025 10:32 AM [facility] Platelets 269 130 - 400 K/mcL LAB HEMETOLOGY METHOD 04/13/2025 10:32 AM [facility] MPV 9.9 7.0 - 11.0 FL LAB HEMETOLOGY METHOD 04/13/2025 10:32 AM [facility] NRBC 0.0 <1.0 % LAB HEMETOLOGY METHOD 04/13/2025 10:32 AM [facility] NRBC Absolute 0.00 <0.10 K/mcL LAB HEMETOLOGY METHOD 04/13/2025 10:32 AM [facility] Neutrophils Relative 61.6 % LAB HEMETOLOGY METHOD 04/13/2025 10:32 AM [facility] Lymphocytes Relative 26.6 % LAB HEMETOLOGY METHOD 04/13/2025 10:32 AM [facility] Monocytes Relative 8.1 % LAB HEMETOLOGY METHOD 04/13/2025 10:32 AM [facility] Eosinophils Relative 2.1 % LAB HEMETOLOGY METHOD 04/13/2025 10:32 AM [facility] Basophils Relative 0.5 % LAB HEMETOLOGY METHOD 04/13/2025 10:32 AM [facility] Immature Granulocytes Relative 1.1 % LAB HEMETOLOGY METHOD 04/13/2025 10:32 AM [facility] Neutrophils Absolute 4.50 1.50 - 7.00 K/mcL LAB HEMETOLOGY METHOD 04/13/2025 10:32 AM [facility] Lymphocytes Absolute 1.94 1.00 - 5.00 K/mcL LAB HEMETOLOGY METHOD 04/13/2025 10:32 AM [facility] Monocytes Absolute 0.59 0.20 - 1.00 K/mcL LAB HEMETOLOGY METHOD 04/13/2025 10:32 AM [facility] Eosinophils Absolute 0.15 0.00 - 0.50 K/mcL LAB HEMETOLOGY METHOD 04/13/2025 10:32 AM [facility] Basophils Absolute 0.04 0.00 - 0.20 K/mcL LAB HEMETOLOGY METHOD 04/13/2025 10:32 AM [facility] Immature Granulocytes Absolute 0.08(H) 0.00 - 0.03 K/mcL LAB HEMETOLOGY METHOD 04/13/2025 10:32 AM [facility] Blood Venous blood specimen / Unknown Venipuncture / Unknown 04/13/2025 8:45 AM EDT 04/13/2025 8:45 AM EDT us Cindy CEDEÑO LAB BLOOD ORDERABLES Final Re sult Performing Organization Address City/[facility]/ZIP Co de Phone Number [facility] [address] [place] [address], [place] [phone] * Hemoglobin A1c (04/13/2025 8:45 AM EDT) Pathologist [facility] Hemoglobin A1C 5.7 <6.5 % LAB CHEMISTRY METHOD 04/13/2025 6:43 PM EDT [facility] Mean Bld Glu Estim. 117 mg/dL LAB CHEMISTRY METHOD 04/13/2025 6:43 PM EDT [facility] Blood Venous blood specimen / Unknown Venipuncture / Unknown 04/13/2025 8:45 AM EDT 04/13/2025 8:45 AM EDT us Cindy CEDEÑO LAB BLOOD ORDERABLES Final Re sult [facility] [address] [place] [address], [place] [phone] * (ABNORMAL) Comprehensive metabolic panel (04/13/2025 8:45 AM EDT) [facility] Sodium 136 133 - 145 mmol/L LAB CHEMISTRY METHOD 04/13/2025 12:42 PM EDT [facility] Potassium 4.2 3.5 - 5.5 mmol/L LAB CHEMISTRY METHOD 04/13/2025 12:42 PM EDT [facility] Chloride 105 96 - 110 mmol/L LAB CHEMISTRY METHOD 04/13/2025 12:42 PM EDT [facility] CO2 25 21 - 32 mmol/L LAB CHEMISTRY METHOD 04/13/2025 12:42 PM EDT [facility] Anion Gap 6 3 - 11 LAB CHEMISTRY METHOD 04/13/2025 12:42 PM [facility] Glucose 130(H) 70 - 100 mg/dL LAB CHEMISTRY METHOD 04/13/2025 12:42 PM [facility] BUN 10 5 - 25 mg/dL LAB CHEMISTRY METHOD 04/13/2025 12:42 PM [facility] Creatinine 0.68(L) 0.70 - 1.30 mg/dL LAB CHEMISTRY METHOD 04/13/2025 12:42 PM [facility] eGFR 124 >=60 mL/min/1. 73m2 LAB CHEMISTRY METHOD 04/13/2025 12:42 PM [facility] Comment:Calculation based on the Chronic Kidney Disease Epidemiology Collaboration (CKD-EPI) equation refit without adjustment for race. BUN/Creatinine Ratio 14.7 LAB CHEMISTRY METHOD 04/13/2025 12:42 PM [facility] Calcium 9.4 8.5 - 10.5 mg/dL LAB CHEMISTRY METHOD 04/13/2025 12:42 PM [facility] AST (SGOT) 13 10 - 42 unit/L LAB CHEMISTRY METHOD 04/13/2025 12:42 PM [facility] ALT (SGPT) 27 10 - 60 unit/L LAB CHEMISTRY METHOD 04/13/2025 12:42 PM [facility] Alkaline Phosphatase 50 42 - 121 unit/L LAB CHEMISTRY METHOD 04/13/2025 12:42 PM [facility] Total Protein 7.4 6.0 - 8.0 g/dL LAB CHEMISTRY METHOD 04/13/2025 12:42 PM [facility] Albumin 3.9 3.2 - 5.0 g/dL LAB CHEMISTRY METHOD 04/13/2025 12:42 PM [facility] Total Bilirubin 0.3 0.0 - 1.4 mg/dL LAB CHEMISTRY METHOD 04/13/2025 12:42 PM EDT [facility] Blood Venous blood specimen / Unknown Venipuncture / Unknown 04/13/2025 8:45 AM EDT 04/13/2025 8:45 AM EDT Cindy CEDEÑO LAB BLOOD ORDERABLES Final Re sult [facility] [address] [place] [address], * Depression Screening (04/07/2024) Pathologist [facility] Depression Screening abstracted Historical Provider HEALTH MAINTENANCE Final Result * Diabetes Foot Exam (04/07/2024) Pathologist [facility] Diabetes: Annual Foot Exam abstracted Historical Provider HEALTH MAINTENANCE Final Result * Hepatitis C Screening (01/13/2018) Pathologist [facility] Hepatitis C Screening abstracted Historical Provider HEALTH MAINTENANCE Final Result from Last 3 Months or Most Recently Relevant to Health Maintenance Insurance MEDICARE [place]ICAID [place] Care Teams Supervisor Front Relationship Specialty Start Date End Date Cinthya Arguelles MD [address] [facility], [place] PCP - General Internal Medicine 07/21/22
[2025-06-26 10:31] LABS: Alanine Aminotransferase 18 U/L (0-40); Albumin Level 4.2 g/dL (3.5-5.0); Alkaline Phosphatase 43 U/L (39-117); Aspartate Amino Transferase 18 U/L (5-37); Total Protein 6.8 g/dL (6.5-8.0)
== END 2025-06-26 07:56 | disposition home or self-care (01) ==
LOC: HO.LABR 07:55
PROVIDERS: Visit Provider Clinical Nurse Specialist Psychiatric/Mental Health, Adult
DX: Z79.899 Other long term (current) drug therapy (principal)
CPT/HCPCS: 36415; 80076; 80164

== ENCOUNTER 2025-07-17 07:44 | Outpatient (REF) | payer MEDICARE, MEDICAID, SELFPAY ==
--- OUTSIDE RECORDS SUMMARY | 2025-07-17 07:47 | XMS_ITS | Clinical Summary ---
Author Organization [facility] [address] Address [address] [place] [address] Phone Care Team Providers Care Baccarat Manager Name Role Phone Cinthya Arguelles MD Primary Care Pr ovider Allergies No known active allergies Medications divalproex (DEPAKOTE ER) 500 mg 24 hr tablet Take 1 Tablet by mouth 2 Times Daily. 06/15/20 23 Active divalproex (DEPAKOTE ER) 250 mg 24 hr tablet Take 1 Tablet by mouth 2 Times Daily. 06/15/20 23 Active blood glucose control, normal (OneTouch Ultra Control) solution Use to check FSG once a day 04/07/20 24 Active blood-glucose meter kit 1 Each by Does not apply route daily. Use once daily to check fasting blood sugar 04/07/20 24 Active freestyle (Prodigy Lancets) 28 gauge lancetsIndicati ons:Type 2 diabetes mellitus without complication, without long-term current use of insulin ([facility] V24, CMS/[facility] V28) Use to check glucose daily 100 each 11/23/19 25 Active metoprolol succinate (TOPROL-XL) 25 mg 24 hr tabletIndicatio ns:Sinus tachycardia Do not crush or chew.Take 25 mg by mouth daily. Take with 50mg for total of 75mg daily 90 tablet 11/23/19 25 Active metoprolol succinate (TOPROL-XL) 50 mg 24 hr tabletIndicatio ns:Primary hypertension,Si nus tachycardia Take 1 tablet (50 mg total) by mouth 1 (one) time each day in the morning. Take with 25mg tablet for total daily dose of 75mg daily 30 tablet 5 03/04/20 25 Active cholecalciferol (VITAMIN D-3) 50 mcg (2,000 unit) tabletIndicatio ns:Vitamin D deficiency TAKE (2) TABLETS BY MOUTH DAILY. 60 tablet 5 01/11/20 25 Active Prodigy No Coding test stripIndication s:Type 2 diabetes mellitus without complication, without long-term current use of insulin ([facility] V24, [facility] V28) USE DIRECTED TO CHECK FASTING BLOOD SUGAR ONCE DAILY. 100 strip 1 02/01/20 25 Active folic acid (FOLVITE) 1 mg tablet Take 1 tablet (1 mg total) by mouth every other day. 45 each 3 03/07/20 25 2025 Active loratadine (CLARITIN) 10 mg tablet Take 1 tablet (10 mg total) by mouth 1 (one) time each day if needed for allergies. 30 each 2 04/13/20 25 Active lisinopriL (PRINIVIL,ZESTR IL) 5 mg tabletIndicatio ns:Primary hypertension Take 1 tablet (5 mg total) by mouth 1 (one) time each day in the morning. 30 tablet 5 05/02/20 25 Active omeprazole (PriLOSEC) [address] capsuleIndicati ons:Gastroesoph ageal reflux disease without esophagitis Take 1 capsule (20 mg total) by mouth 1 (one) time each day. 30 capsule 5 05/02/20 25 Active hydrOXYzine HCL (ATARAX) 50 mg tablet 02/21/20 25 Active clozapine (CLOZARIL ORAL) Take by mouth. 01/23/20 07 Active ciclopirox (PENLAC) 8 % solution Apply topically at bedtime. Apply over nail and surrounding skin. Apply daily over previous coat. After seven (7) days, may remove with alcohol and continue cycle. 6.6 mL 07/03/20 25 2024 Active ammonium lactate (AmLactin) 12 % lotion Apply topically if needed for dry skin. 400 g 2 07/03/20 25 2025 Active ferrous sulfate 324 mg (65 mg elemental iron) EC tablet Take 1 tablet (324 mg total) by mouth 1 (one) time each day. 30 tablet 5 07/12/20 25 Active docusate sodium (COLACE) 100 mg capsuleIndicati ons:Chronic anemia Take 1 capsule (100 mg total) by mouth 1 (one) time each day. 30 capsule 5 07/12/20 25 Active cloZAPine (CLOZARIL) 200 mg tablet Take 400 mg by mouth daily. 2024 Discontinued ferrous sulfate 324 mg (65 mg elemental iron) EC tablet TAKE 1 TABLET BY MOUTH DAILY. 30 tablet 5 01/11/20 25 2024 Discontinued(R eorder) docusate sodium (COLACE) 100 mg capsuleIndicati ons:Chronic anemia TAKE 1 CAPSULE BY MOUTH DAILY. 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/2024 Subclinical hyperthyroidism 08/16/2024 Assessment [...] retinopathy of both eyes 02/02/2023 Overview (08/29/2024): [facility] eye exam om 01/30/23 No diabetic [...] Type 2 diabetes mellitus wit hout complication ([facility] V24, [facility] V28) 06/04/2011 Assessment & Plan (11/23/2024 12:24 [...] (BMI) of 35.0 to 35.9 in adult ([facility] V24, [facility] V28) Encounters Date Type Department Care Team Description 07/03/2025 11:00 AM EDT Consult Orthopedic Surgery - [address] [phone] Carson Montaño, DPSherman Type 2 diabetes mellitus without complication, without long-term current use of insulin ([facility] V24, [facility] V28) (Primary Dx); Pain in toes of both feet; Hammertoes of both feet; Dermatophytosis, nail; Xerosis cutis 05/03/2025 Telephone Adult Medicine [address] [phone] Cinthya Arguelles MD from Last 3 Months Immunizations Name Administration [...] complication, not stated as uncontrolled Bipolar affective ([facility] V 24, [facility] V28) DX:Bipolar affective ([facility]) Bipolar affective disorder ( [facility] V24, [facility] V28) 09/04/2011 DX:Bipolar affective disorde r ([facility]) Asthma 06/04/2011 DX:Asthma Family History Medical [...] Care Team (Late st Contact Info) Description 10/03/2025 10:30 AM EST Office Visit Orthopedic Surgery - [place] [address] [phone] Carson Montaño, JANNETH [address] [address] 10/16/2025 8:30 AM EST Office Visit Adult Medicine [address] [phone] Cinthya Arguelles MD [address] [place] [address] 04/19/2026 8:00 AM EDT Office Visit Adult Medicine [address] [phone] Cinthya Arguelles MD [address] [place] [address] Health Maintenance Due Date Last Done Comments Pneumococcal Vaccine: Pediatrics (0 to 5 Years) and At-Risk Patients (6 to 49 Years) (2 of 2 - PCV) 12/15/2014 12/15/2013 HIV Screening 10/07/2022 Medicare Annual Wellness Visit 10/07/2022 Depression Screening 11/09/2024 04/07/2024 COVID-19 Vaccine ( season) 2025 01/28/2021, 01/07/2021 Influenza Vaccine (#1) 2025 , 12/29/2022, 10/17/2019, [...] exam Routine general medical examination at a health care facility COMPREHENSIVE METABOLIC PANEL Routine 04/13/2025 8:45 AM [...] Report (06/05/2025) Anatomical Region Laterality Modality Ultrasound us Provider [facility] US PROCEDURES Final Result * Microalbumin creatinine urine ratio (04/14/2025 8:43 AM EDT) Creatinine, Urine 133.0 mg/dL LAB CHEMISTRY METHOD 04/14/2025 12:16 PM EDT [facility] Microalb, Ur 5.8 0.0 - 29.0 mg/L LAB CHEMISTRY METHOD 04/14/2025 12:16 PM EDT [facility] Microalb/Creat Ratio 4 <30 mg/g creat LAB CHEMISTRY METHOD 04/14/2025 12:16 PM EDT [facility] Urine Urine specimen obtained by clean catch procedure / Unknown Non-blood Collection / Unknown 04/14/2025 8:43 AM EDT 04/14/2025 8:43 AM EDT Cindy CEDEÑO LAB URINE ORDERABLES Final Re sult [facility] [address] [place] [address], [place] [phone] * Lipid panel with reflex to direct LDL (04/13/2025 8:45 AM EDT) Cholesterol 156 0 - 200 mg/dL LAB CHEMISTRY METHOD 04/13/2025 12:42 PM EDT [facility] Triglycerides 118 0 - 150 mg/dL LAB CHEMISTRY METHOD 04/13/2025 12:42 PM EDT [facility] HDL 40 >=40 mg/dL LAB CHEMISTRY METHOD 04/13/2025 12:42 PM EDT [facility] LDL Calculated 92 0 - 100 mg/dL LAB CHEMISTRY METHOD 04/13/2025 12:42 PM EDT [facility] VLDL Cholesterol Tarun 23.6 mg/dL LAB CHEMISTRY METHOD 04/13/2025 12:42 PM EDT [facility] Non HDL Chol. (LDL+VLDL) 116 <145 mg/dL LAB CHEMISTRY METHOD 04/13/2025 12:42 PM EDT [facility] Chol/HDL Ratio 3.9 0.0 - 4.4 LAB CHEMISTRY METHOD 04/13/2025 12:42 PM T [facility] Blood Venous blood specimen / Unknown Venipuncture / Unknown 04/13/2025 8:45 AM EDT 04/13/2025 8:45 AM EDT Cindy CEDEÑO LAB BLOOD ORDERABLES Final Re sult [facility] [address] [place] [address], [place] [phone] * Hemoglobin A1c (04/13/2025 8:45 AM EDT) Hemoglobin A1C 5.7 <6.5 % LAB CHEMISTRY METHOD 04/13/2025 6:43 PM EDT [facility] Mean Bld Glu Estim. 117 mg/dL LAB CHEMISTRY METHOD 04/13/2025 6:43 PM [facility] Blood Venous blood specimen / Unknown Venipuncture / Unknown 04/13/2025 8:45 AM EDT 04/13/2025 8:45 AM EDT us Cindy CEDEÑO LAB BLOOD ORDERABLES Final Re sult [facility] [address] [place] [address], * (ABNORMAL) Comprehensive metabolic panel (04/13/2025 8:45 AM EDT) Sodium 136 133 - 145 mmol/L LAB CHEMISTRY METHOD 04/13/2025 12:42 PM [facility] Potassium 4.2 3.5 - 5.5 mmol/L LAB CHEMISTRY METHOD 04/13/2025 12:42 PM [facility] Chloride 105 96 - 110 mmol/L LAB CHEMISTRY METHOD 04/13/2025 12:42 PM [facility] CO2 25 21 - 32 mmol/L LAB CHEMISTRY METHOD 04/13/2025 12:42 PM [facility] Anion Gap 6 3 - 11 LAB CHEMISTRY METHOD 04/13/2025 12:42 PM [facility] Glucose 130(H) 70 - 100 mg/dL LAB CHEMISTRY METHOD 04/13/2025 12:42 PM [facility] BUN 10 5 - 25 mg/dL LAB CHEMISTRY METHOD 04/13/2025 12:42 PM [facility] Creatinine 0.68(L) 0.70 - 1.30 mg/dL LAB CHEMISTRY METHOD 04/13/2025 12:42 PM [facility] eGFR 124 >=60 mL/min/1. 73m2 LAB CHEMISTRY METHOD 04/13/2025 12:42 PM [facility] Comment:Calculation based on the Chronic Kidney Disease Epidemiology Collaboration (CKD-EPI) equation refit without adjustment for race. BUN/Creatinine Ratio 14.7 LAB CHEMISTRY METHOD 04/13/2025 12:42 PM [facility] Calcium 9.4 8.5 - 10.5 mg/dL LAB CHEMISTRY METHOD 04/13/2025 12:42 PM [facility] AST (SGOT) 13 10 - 42 unit/L LAB CHEMISTRY METHOD 04/13/2025 12:42 PM [facility] ALT (SGPT) 27 10 - 60 unit/L LAB CHEMISTRY METHOD 04/13/2025 12:42 PM [facility] Alkaline Phosphatase 50 42 - 121 unit/L LAB CHEMISTRY METHOD 04/13/2025 12:42 PM [facility] Total Protein 7.4 6.0 - 8.0 g/dL LAB CHEMISTRY METHOD 04/13/2025 12:42 PM [facility] Albumin 3.9 3.2 - 5.0 g/dL LAB CHEMISTRY METHOD 04/13/2025 12:42 PM [facility] Total Bilirubin 0.3 0.0 - 1.4 mg/dL LAB CHEMISTRY METHOD 04/13/2025 12:42 PM [facility] Blood Venous blood specimen / Unknown Venipuncture / Unknown 04/13/2025 8:45 AM EDT 04/13/2025 8:45 AM EDT Cindy CEDEÑO LAB BLOOD ORDERABLES Final Re sult [facility] [address] [place] [address], * Depression Screening (04/07/2024) Depression Screening abstracted us Historical Provider HEALTH MAINTENANCE Final Result * Diabetes Foot Exam (04/07/2024) Diabetes: Annual Foot Exam abstracted Historical Provider HEALTH MAINTENANCE Final Result * Hepatitis C Screening (01/13/2018) Pathologist [facility] Hepatitis C Screening abstracted Historical Provider HEALTH MAINTENANCE Final Result from Last 3 Months or Most Recently Relevant to Health Maintenance Insurance MEDICARE [place]ICAID [place] Care Teams Baccarat Manager Relationship Specialty Start Date End Date Cinthya Arguelles MD [address] [facility], [place] PCP - General Internal Medicine 07/21/22
[2025-07-17 09:17] LABS: Alanine Aminotransferase 18 U/L (0-40); Albumin Level 4.4 g/dL (3.5-5.0); Alkaline Phosphatase 47 U/L (39-117); Aspartate Amino Transferase 17 U/L (5-37); Total Protein 7.2 g/dL (6.5-8.0)
== END 2025-07-17 07:45 | disposition home or self-care (01) ==
LOC: HO.LABR 07:44
PROVIDERS: Visit Provider Clinical Nurse Specialist Psychiatric/Mental Health, Adult
DX: Z13.89 Encounter for screening for other disorder (principal)
CPT/HCPCS: 36415; 80076

== ENCOUNTER 2025-08-14 07:28 | Outpatient (REF) | payer MEDICARE, MEDICAID, SELFPAY ==
--- OUTSIDE RECORDS SUMMARY | 2025-08-14 07:31 | XMS_ITS | Clinical Summary ---
Author Organization [facility] Address [address] [place] [address] Phone Care Team Providers Care Polymerization Oven Tender Name Role Phone Cinthya Arguelles MD Primary [...] 24 Active freestyle (Prodigy Lancets) 28 gauge lancetsIndicatio ns:Type 2 diabetes mellitus without complication, without long-term current use of insulin (CMS/[facility] V24, CMS/HCC V28) Use to check glucose daily 100 each 1 11/23/19 25 Active metoprolol succinate (TOPROL-XL) 25 mg 24 hr tabletIndication s:Sinus tachycardia Do not crush or chew.Take 25 mg by mouth daily. Take with 50mg for total of 75mg daily 90 tablet 1 11/23/19 25 Active Prodigy No Coding test stripIndications :Type 2 diabetes mellitus without complication, without long-term current use of insulin (CMS/HCC V24, CMS/HCC V28) USE DIRECTED TO CHECK FASTING BLOOD SUGAR ONCE DAILY. 100 strip 1 02/01/20 25 Active folic acid (FOLVITE) 1 mg tablet Take 1 tablet (1 mg total) by mouth every other day. 45 each 3 03/07/20 25 026 Active loratadine (CLARITIN) 10 mg tablet Take 1 tablet (10 mg total) by mouth 1 (one) time each day if needed for allergies. 30 each 2 04/13/20 25 Active hydrOXYzine HCL (ATARAX) 50 mg tablet 02/21/20 25 Active clozapine (CLOZARIL ORAL) Take by mouth. 01/23/20 07 Active ciclopirox (PENLAC) 8 % solution Apply topically at bedtime. Apply over nail and surrounding skin. Apply daily over previous coat. After seven (7) days, may remove with alcohol and continue cycle. 6.6 mL 07/03/20 25 025 Active ammonium lactate (AmLactin) 12 % lotion Apply topically if needed for dry skin. 400 g 2 07/03/20 25 026 Active ferrous sulfate 324 mg (65 mg elemental iron) EC tablet Take 1 tablet (324 mg total) by mouth 1 (one) time each day. 30 tablet 5 07/12/20 25 Active docusate sodium (COLACE) 100 mg capsuleIndicatio ns:Chronic anemia Take 1 capsule (100 mg total) by mouth 1 (one) time each day. 30 capsule 5 07/12/20 25 Active metoprolol succinate (TOPROL-XL) 50 mg 24 hr tabletIndication s:Primary hypertension,Sin us tachycardia Take 1 tablet (50 mg total) by mouth 1 (one) time each day in the morning. Take with 25mg tablet for total daily dose of 75mg daily 30 tablet 2 08/11/20 25 Active lisinopriL (PRINIVIL,ZESTRI L) 5 mg tabletIndication s:Primary hypertension Take 1 tablet (5 mg total) by mouth 1 (one) time each day in the morning. 30 tablet 2 08/11/20 25 Active omeprazole (PriLOSEC) [address] capsuleIndicatio ns:Gastroesophag eal reflux disease without esophagitis Take 1 capsule (20 mg total) by mouth 1 (one) time each day. 30 capsule 2 08/11/20 25 Active cholecalciferol (VITAMIN D-3) 50 mcg (2,000 unit) tabletIndication s:Vitamin D deficiency Take 1 tablet (2,000 Units total) by mouth 1 (one) time each day. 60 tablet 2 08/11/20 25 Active metoprolol succinate (TOPROL-XL) 50 mg 24 hr tabletIndication s:Primary hypertension,Sin us tachycardia Take 1 tablet (50 mg total) by mouth 1 (one) time each day in the morning. Take with 25mg tablet for total daily dose of 75mg daily 30 tablet 5 01/11/20 25 025 Discontin ued(Reord er) cholecalciferol (VITAMIN D-3) 50 mcg (2,000 unit) tabletIndication s:Vitamin D deficiency TAKE (2) TABLETS BY MOUTH DAILY. 60 tablet 5 01/11/20 25 025 Discontin ued(Reord er) lisinopriL (PRINIVIL,ZESTRI L) 5 mg tabletIndication s:Primary hypertension Take 1 tablet (5 mg total) by mouth 1 (one) time each day in the morning. 30 tablet 5 05/02/20 25 025 Discontin ued(Reord er) omeprazole (PriLOSEC) [address] capsuleIndicatio ns:Gastroesophag eal reflux disease without esophagitis Take 1 capsule (20 mg total) by mouth 1 (one) time each day. 30 capsule 5 05/02/20 25 025 Discontin ued(Reord er) Active Problems Problem Noted Date Diagnosed Date [...] retinopathy of both eyes 02/02/2023 Overview (08/29/2024): [facility] eye exam om 01/30/23 No diabetic retinopathy. [...] Future Type 2 diabetes mellitus without complication Overview (08/09/2025): 08/09/25 Regulatory IMO Update Assessment & Plan (11/23/2024 12:24 PM EST): [...] 11:00 AM EDT Consult Orthopedic Surgery - [place] [address] [phone] Carson Montaño, DPSherman Type 2 diabetes mellitus without complication, without long-term current use of insulin ([facility] V24, CMS/[facility] V28) (Primary Dx); Pain in toes of both feet; Hammertoes of both feet; Dermatophytosis, nail; Xerosis cutis from Last 3 Months Immunizations Immunization Administration Dates Next Due Influenza Quadravalent, MDCK [...] complication, not stated as uncontrolled Bipolar affective ([facility] V 24, [facility] V28) DX:Bipolar affective ([facility]) Bipolar affective disorder ( [facility] V24, [facility] V28) 09/04/2011 DX:Bipolar affective disorde r ([facility]) Asthma 06/04/2011 DX:Asthma Family History Medical History [...] AM EST Office Visit Orthopedic Surgery - [place] [address] [phone] Carson Montaño, JANNETH [address] [address] 10/16/2025 8:30 AM EST Office Visit Adult Medicine [address] [phone] Cinthya Arguelles MD [address] [place] [address] 04/19/2026 8:00 AM EDT Office Visit Adult Medicine [address] [phone] Cinthya Arguelles MD [address] [place] [address] Health Maintenance Due Date Last Done Comments Pneumococcal Vaccine: Pediatrics (0 to 5 Years) and At-Risk Patients (6 to 49 Years) (2 of 2 - PCV) 12/15/2014 12/15/2013 HPV Vaccines (1 - 3-dose SCDM series) 2016 HIV Screening 10/07/2022 Medicare Annual Wellness Visit 10/07/2022 Depression Screening 11/09/2024 04/07/2024 COVID-19 Vaccine (3 - season) 2025 01/28/2021, 01/07/2021 Influenza Vaccine (#1) [...] - Td or Tdap) 12/29/2032 12/29/2022, 06/29/2012 RSV Immunization Adult Patients (1 - 1-dose 75+ series) 2064 Hepatitis C Screening Completed 01/13/2018 HIB Vaccines [...] exam Routine general medical examination at a [facility] care facility COMPREHENSIVE METABOLIC PANEL Routine 04/13/2025 [...] LAB CHEMISTRY METHOD 04/14/2025 12:16 PM EDT [facility] Microalb, Ur 5.8 0.0 - 29.0 mg/L LAB CHEMISTRY METHOD 04/14/2025 12:16 PM EDT [facility] Microalb/Creat Ratio 4 <30 mg/g creat LAB CHEMISTRY METHOD 04/14/2025 12:16 PM EDT [facility] Urine Urine specimen obtained by clean catch procedure / Unknown Non-blood Collection / Unknown 04/14/2025 8:43 AM EDT 04/14/2025 8:43 AM EDT us Cindy CEDEÑO LAB URINE ORDERABLES Final Re sult [facility] [address] [place] [address], [place] [phone] * Lipid panel with reflex to direct LDL (04/13/2025 8:45 AM EDT) Cholesterol 156 0 - 200 mg/dL LAB CHEMISTRY METHOD 04/13/2025 12:42 PM EDT [facility] Triglycerides 118 0 - 150 mg/dL LAB CHEMISTRY METHOD 04/13/2025 12:42 PM EDT [facility] HDL 40 >=40 mg/dL LAB CHEMISTRY METHOD 04/13/2025 12:42 PM EDT [facility] LDL Calculated 92 0 - 100 mg/dL LAB CHEMISTRY METHOD 04/13/2025 12:42 PM T [facility] VLDL Cholesterol Tarun 23.6 mg/dL LAB CHEMISTRY METHOD 04/13/2025 12:42 PM T [facility] Non HDL Chol. (LDL+VLDL) 116 <145 mg/dL LAB CHEMISTRY METHOD 04/13/2025 12:42 PM T [facility] Chol/HDL Ratio 3.9 0.0 - 4.4 LAB CHEMISTRY METHOD 04/13/2025 12:42 PM [facility] Blood Venous blood specimen / Unknown Venipuncture / Unknown 04/13/2025 8:45 AM EDT 04/13/2025 8:45 AM EDT us Cindy CEDEÑO LAB BLOOD ORDERABLES Final Re sult Performing Organization Address City/[facility]/ZIP Co de Phone Number [facility] [address] [place] [address], * Hemoglobin A1c (04/13/2025 8:45 AM EDT) [facility] Hemoglobin A1C 5.7 <6.5 % LAB CHEMISTRY METHOD 04/13/2025 6:43 PM EDT [facility] Mean Bld Glu Estim. 117 mg/dL LAB CHEMISTRY METHOD 04/13/2025 6:43 PM EDT [facility] Blood Venous blood specimen / Unknown Venipuncture / Unknown 04/13/2025 8:45 AM EDT 04/13/2025 8:45 AM EDT Cindy CEDEÑO LAB BLOOD ORDERABLES Final Re sult Performing Organization Address [facility]/ZIP Co de Phone Number [facility] [address] [place] [address], [place] [phone] * (ABNORMAL) Comprehensive metabolic panel (04/13/2025 8:45 AM EDT) [facility] Sodium 136 133 - 145 mmol/L LAB CHEMISTRY METHOD 04/13/2025 12:42 PM [facility] Potassium 4.2 3.5 - 5.5 mmol/L LAB CHEMISTRY METHOD 04/13/2025 12:42 PM [facility] Chloride 105 96 - 110 mmol/L LAB CHEMISTRY METHOD 04/13/2025 12:42 PM [facility] CO2 25 21 - 32 mmol/L LAB CHEMISTRY METHOD 04/13/2025 12:42 PM [facility] Anion Gap 6 3 - 11 LAB CHEMISTRY METHOD 04/13/2025 12:42 PM [facility] Glucose 130(H) 70 - 100 mg/dL LAB CHEMISTRY METHOD 04/13/2025 12:42 PM [facility] BUN 10 5 - 25 mg/dL LAB CHEMISTRY METHOD 04/13/2025 12:42 PM [facility] Creatinine 0.68(L) 0.70 - 1.30 mg/dL LAB CHEMISTRY METHOD 04/13/2025 12:42 PM [facility] eGFR 124 >=60 mL/min/1. 73m2 LAB CHEMISTRY METHOD 04/13/2025 12:42 PM [facility] Comment:Calculation based on the Chronic Kidney Disease Epidemiology Collaboration (CKD-EPI) equation refit without adjustment for race. BUN/Creatinine Ratio 14.7 LAB CHEMISTRY METHOD 04/13/2025 12:42 PM [facility] Calcium 9.4 8.5 - 10.5 mg/dL LAB CHEMISTRY METHOD 04/13/2025 12:42 PM [facility] AST (SGOT) 13 10 - 42 unit/L LAB CHEMISTRY METHOD 04/13/2025 12:42 PM [facility] ALT (SGPT) 27 10 - 60 unit/L LAB CHEMISTRY METHOD 04/13/2025 12:42 PM [facility] Alkaline Phosphatase 50 42 - 121 unit/L LAB CHEMISTRY METHOD 04/13/2025 12:42 PM [facility] Total Protein 7.4 6.0 - 8.0 g/dL LAB CHEMISTRY METHOD 04/13/2025 12:42 PM [facility] Albumin 3.9 3.2 - 5.0 g/dL LAB CHEMISTRY METHOD 04/13/2025 12:42 PM [facility] Total Bilirubin 0.3 0.0 - 1.4 mg/dL LAB CHEMISTRY METHOD 04/13/2025 12:42 PM [facility] Blood Venous blood specimen / Unknown Venipuncture / Unknown 04/13/2025 8:45 AM EDT 04/13/2025 8:45 AM EDT Cindy CEDEÑO LAB BLOOD ORDERABLES Final Re sult [facility] [address] [place] [address], [place] [phone] * Depression Screening (04/07/2024) Depression Screening abstracted Historical Provider HEALTH MAINTENANCE Final Result * Diabetes Foot Exam (04/07/2024) Pathologist [facility] Diabetes: Annual Foot Exam abstracted Historical Provider HEALTH MAINTENANCE Final Result * Hepatitis C Screening (01/13/2018) Pathologist [facility] Hepatitis C Screening abstracted Historical Provider HEALTH MAINTENANCE Final Result from Last 3 Months or Most Recently Relevant to Health Maintenance Insurance MEDICARE [place]ICAID [place] Care Teams Polymerization Oven Tender Relationship Specialty Start Date End Date Cinthya Arguelles MD [address] [place] [address] PCP - General Internal Medicine 07/21/22
[2025-08-14 08:23] LABS: Alanine Aminotransferase 22 U/L (0-40); Albumin Level 4.5 g/dL (3.5-5.0); Alkaline Phosphatase 42 U/L (39-117); Aspartate Amino Transferase 19 U/L (5-37); Total Protein 7.1 g/dL (6.5-8.0)
== END 2025-08-14 07:29 | disposition home or self-care (01) ==
LOC: HO.LAB 07:28
PROVIDERS: Visit Provider Clinical Nurse Specialist Psychiatric/Mental Health, Adult
DX: Z13.89 Encounter for screening for other disorder (principal)
CPT/HCPCS: 36415; 80076; 80164

== ENCOUNTER 2025-09-08 16:48 | Emergency (ER) | payer MEDICARE, MEDICAID, SELFPAY ==
--- NOTE | ~2025-09-08 | XR_ITS ---
CLINICAL HISTORY: hit L side of face on a chicken coop Four views facial bones Comparison: None Findings: No fractures or bone lesions. Paranasal sinuses clear. Mastoid air cells clear. Piercing noted on the left Impression: 1. Normal facial bones. This document has been electronically signed by: Joshua Carvalho MD on 09/08/2025 18:32:55
[2025-09-08 16:59] VITALS: BP 164/92; PULSE 108; RESP 20; TEMP 37.2; O2SAT 99; BMI 36.0
--- OUTSIDE RECORDS SUMMARY | 2025-09-08 18:48 | XMS_ITS | Clinical Summary ---
Author Organization [facility] [employer] Address [address] [place] [phone] Phone Care Team Providers Care Body Presser Name Role Phone Cinthya Arguelles MD Primary [...] complication, without long-term current use of insulin (CMS/[facility] V24, CMS/[facility] V28) Use to check glucose daily [...] (2,000 unit) tabletIndication s:Vitamin D deficiency Take 2 tablets (4,000 Units total) by mouth 1 (one) time each day. 180 tablet 1 08/18/20 25 Active cholecalciferol (VITAMIN D-3) 50 mcg (2,000 unit) tabletIndication s:Vitamin D deficiency Take 1 tablet (2,000 Units total) by mouth 1 (one) time each day. 60 tablet 2 08/11/20 25 025 Discontin ued(Reord er) Active Problems [...] retinopathy of both eyes 02/02/2023 Overview (08/29/2024): [facility] eye exam om 01/30/23 No diabetic [...] not crush or chew. Bipolar affective disorder (CMS/[facility] V24, CMS/HCC V28) 09/04/2011 Assessment & Plan [...] Encounters Date Type Department Care Team Description 09/06/2025 Nurse Triage Adult Medicine [address] [phone] Cinthya Arguelles MD 08/18/2025 Telephone Adult Medicine [address] [phone] Maryjo Colby MA 07/03/2025 11:00 AM EDT Consult Orthopedic Surgery - [address] [phone] Carson Montaño, JANNETH Type 2 diabetes mellitus without complication, without long-term current use of insulin ([facility] V24, [facility] V28) (Primary Dx); Pain in toes of [...] complication, not stated as uncontrolled Bipolar affective ([facility] V 24, [facility] V28) DX:Bipolar affective ([facility]) Bipolar affective disorder ( [facility] V24, [facility] V28) 09/04/2011 DX:Bipolar affective disorde r ([facility]) Asthma 06/04/2011 DX:Asthma Family History Medical [...] Sign Reading Time Taken Comments Blood Pressure 143/92 09/08/2025 4:[address] rage Pulse 108 09/08/2025 4:13 PM EDT Temperature 36.1 C (96.9 F) 09/08/2025 4:11 PM EDT Respiratory Rate 14 09/08/2025 4:11 PM EDT Oxygen Saturation 97% 04/13/2025 8:10 AM EDT Inhaled Oxygen Concentration - - Weight 126 kg (277 lb) 09/08/2025 4:11 PM EDT Height 185.4 cm (6' 1 ) 09/08/2025 4:11 PM EDT Body Mass Index 36.55 09/08/2025 4:11 PM EDT Plan of Treatment Upcoming Encounters Date Type Department Care Team (Late st Contact Info) Description 10/03/2025 10:30 AM EST Office Visit Orthopedic Surgery - [place] [address] [place] [phone] Carson Montaño, JANNETH [address] [place] [phone] 10/16/2025 8:30 AM EST Office Visit Adult Medicine [address] [phone] Cinthya Arguelles MD [address] [place] [address] 04/19/2026 8:00 AM EDT Office Visit Adult Medicine [address] [phone] Cinthya Arguelles MD [address] [place] [address] Health Maintenance Due Date Last Done Comments Pneumococcal Vaccine: Pediatrics (0 to 5 Years) and At-Risk Patients (6 to 49 Years) (2 of 2 - PCV) 12/15/2014 12/15/2013 HPV Vaccines (1 - 3-dose SCDM series) 2016 HIV Screening 10/07/2022 Medicare Annual Wellness Visit 10/07/2022 Depression Screening 11/09/2024 04/07/2024 COVID-19 Vaccine ( - season) 2025 01/28/2021, 01/07/2021 Influenza Vaccine [...] LAB CHEMISTRY METHOD 04/14/2025 12:16 PM EDT [facility] Microalb, Ur 5.8 0.0 - 29.0 mg/L LAB CHEMISTRY METHOD 04/14/2025 12:16 PM EDT [facility] Microalb/Creat Ratio 4 <30 mg/g creat LAB CHEMISTRY METHOD 04/14/2025 12:16 PM EDT [facility] Urine Urine specimen obtained by clean catch procedure / Unknown Non-blood Collection / Unknown 04/14/2025 8:43 AM EDT 04/14/2025 8:43 AM EDT Cindy CEDEÑO LAB URINE ORDERABLES Final Re sult [facility] [address] [place] [address], [place] [phone] * Lipid panel with reflex to direct LDL (04/13/2025 8:45 AM EDT) Cholesterol 156 0 - 200 mg/dL LAB CHEMISTRY METHOD 04/13/2025 12:42 PM EDT [facility] Triglycerides 118 0 - 150 mg/dL LAB CHEMISTRY METHOD 04/13/2025 12:42 PM EDT [facility] HDL 40 >=40 mg/dL LAB CHEMISTRY METHOD 04/13/2025 12:42 PM EDT [facility] LDL Calculated 92 0 - 100 mg/dL LAB CHEMISTRY METHOD 04/13/2025 12:42 PM EDT [facility] VLDL Cholesterol Tarun 23.6 mg/dL LAB CHEMISTRY METHOD 04/13/2025 12:42 PM EDT [facility] Non HDL Chol. (LDL+VLDL) 116 <145 mg/dL LAB CHEMISTRY METHOD 04/13/2025 12:42 PM EDT [facility] Chol/HDL Ratio 3.9 0.0 - 4.4 LAB CHEMISTRY METHOD 04/13/2025 12:42 PM EDT [facility] Blood Venous blood specimen / Unknown Venipuncture / Unknown 04/13/2025 8:45 AM EDT 04/13/2025 8:45 AM EDT Cindy CEDEÑO LAB BLOOD ORDERABLES Final Re sult [facility] [address] [place] [address], [place] [phone] * Hemoglobin A1c (04/13/2025 8:45 AM EDT) Hemoglobin A1C 5.7 <6.5 % LAB CHEMISTRY METHOD 04/13/2025 6:43 PM EDT [facility] Mean Bld Glu Estim. 117 mg/dL LAB CHEMISTRY METHOD 04/13/2025 6:43 PM [facility] Blood Venous blood specimen / Unknown Venipuncture / Unknown 04/13/2025 8:45 AM EDT 04/13/2025 8:45 AM EDT Cnidy CEDEÑO LAB BLOOD ORDERABLES Final Re sult [facility] [address] [place] [address], [place] [phone] * (ABNORMAL) Comprehensive metabolic panel (04/13/2025 8:45 AM EDT) Sodium 136 133 - 145 mmol/L LAB CHEMISTRY METHOD 04/13/2025 12:42 PM [facility] Potassium 4.2 3.5 - 5.5 mmol/L LAB CHEMISTRY METHOD 04/13/2025 12:42 PM [facility] Chloride 105 96 - 110 mmol/L LAB CHEMISTRY METHOD 04/13/2025 12:42 PM [facility] CO2 25 21 - 32 mmol/L LAB CHEMISTRY METHOD 04/13/2025 12:42 PM [facility] Anion Gap 6 3 - 11 LAB CHEMISTRY METHOD 04/13/2025 12:42 PM [facility] Glucose 130(H) 70 - 100 mg/dL LAB CHEMISTRY METHOD 04/13/2025 12:42 PM [facility] BUN 10 5 - 25 mg/dL LAB CHEMISTRY METHOD 04/13/2025 12:42 PM [facility] Creatinine 0.68(L) 0.70 - 1.30 mg/dL LAB CHEMISTRY METHOD 04/13/2025 12:42 PM [facility] eGFR 124 >=60 mL/min/1. 73m2 LAB CHEMISTRY METHOD 04/13/2025 12:42 PM [facility] Comment:Calculation based on the Chronic Kidney Disease Epidemiology Collaboration (CKD-EPI) equation refit without adjustment for race. BUN/Creatinine Ratio 14.7 LAB CHEMISTRY METHOD 04/13/2025 12:42 PM [facility] Calcium 9.4 8.5 - 10.5 mg/dL LAB CHEMISTRY METHOD 04/13/2025 12:42 PM [facility] AST (SGOT) 13 10 - 42 unit/L LAB CHEMISTRY METHOD 04/13/2025 12:42 PM [facility] ALT (SGPT) 27 10 - 60 unit/L LAB CHEMISTRY METHOD 04/13/2025 12:42 PM [facility] Alkaline Phosphatase 50 42 - 121 unit/L LAB CHEMISTRY METHOD 04/13/2025 12:42 PM [facility] Total Protein 7.4 6.0 - 8.0 g/dL LAB CHEMISTRY METHOD 04/13/2025 12:42 PM [facility] Albumin 3.9 3.2 - 5.0 g/dL LAB CHEMISTRY METHOD 04/13/2025 12:42 PM [facility] Total Bilirubin 0.3 0.0 - 1.4 mg/dL LAB CHEMISTRY METHOD 04/13/2025 12:42 PM [facility] Blood Venous blood specimen / Unknown Venipuncture / Unknown 04/13/2025 8:45 AM EDT 04/13/2025 8:45 AM EDT us Cindy CEDEÑO LAB BLOOD ORDERABLES Final Re sult [facility] [address] [place] [address], [place] [phone] * Depression Screening (04/07/2024) [facility] Depression Screening abstracted us Historical Provider HEALTH MAINTENANCE Final Result * Diabetes Foot Exam (04/07/2024) Diabetes: Annual Foot Exam abstracted Historical Provider HEALTH MAINTENANCE Final Result * Hepatitis C Screening (01/13/2018) Hepatitis C Screening abstracted Historical Provider HEALTH MAINTENANCE Final Result from Last 3 Months or Most Recently Relevant to Health Maintenance Insurance MEDICARE [place]ICAID [place] Care Teams Body Presser Relationship Specialty Start Date End Date Cinthya Arguelles MD [address] [facility] [place], [place] PCP - General Internal Medicine 07/21/22
--- OUTSIDE RECORDS SUMMARY | 2025-09-08 18:48 | XMS_ITS | Encounter Summary ---
Author Organization [facility] Address [address] [place] [address] Care Team Providers Care Telecommunications Technician Name Role Phone Cinthya Arguelles MD Primary Care Pr ovider Reason for Visit * Reason Onset Date Comments Facial Swelling 09/06/2025 Encounter Details Date Type Department Care Team ([facility] st Contact Info) Description 09/06/2025 Nurse Triage Adult Medicine [address] [phone] Cinthya Arguelles MD [address] [place] [address] Social History Tobacco Use Types Packs/Day Years [...] as of this encounter Progress Notes * Najma Beach RN - 09/07/2025 9:10 AM EDT I left a message for Guero to call the office at . Per Cindy Montero pt is to go to the ER for further evaluation and treatment. * Kathy Love RN - 09/07/2025 8:44 AM EDT Call to Guero message left for Guero to call the office when receiving this message * GALA Todd - 09/07/2025 8:04 AM EDT Given nature of injury, I would recommend ER evaluation, as imaging will be required with workup. GALA Todd * Najma Beach RN - 09/06/2025 3:21 PM EDT An appointment was made for him to be seen in the office on 09/08/25 at 4:30 pm with Cindy Montero and he is in agreement with this plan. Reason for Disposition [1] MILD pain (e.g., does not interfere with normal activities) AND [2] constant AND [3] present > 24 hours (Exception: Symptom is chronic.) Answer Assessment - Initial Assessment Questions 1. ONSET: When did your mouth start hurting? (e.g., hours or days ago) Pt was cleaning a chicken coop on 09/01/25 and he hit his face on a beam. He has pain and swelling to his left jaw. 2. SEVERITY: How bad is the pain? (Scale 1-10; or mild, moderate or severe) He rates the pain as 5/10 3. SORES: Are there any sores or ulcers in the mouth? If Yes, ask: What part of the mouth are the sores in? No 4. FEVER: Do you have a fever? If Yes, ask: What is your temperature, how was it measured, and when did it start? No 5. CAUSE: What do you think is causing the mouth pain? Please see above 6. OTHER SYMPTOMS: Do you have any other symptoms? (e.g., difficulty breathing) Pt has difficulty chewing his food. Protocols used: Mouth Pain-A-AH, Face Pain-A-AH * Leilani Vázquez - 09/06/2025 1:46 PM EDT Guero from [employer] is returning call to triage * Stephanie Hendricks RN - 09/06/2025 12:53 PM EDT Returned service back is pts number also left vm to return call * Leilani Vázquez - 09/06/2025 12:40 PM EDT Service net returned call * Najma Beach RN - 09/06/2025 11:34 AM EDT I left a message to call the office at . * Laurie Posadas - 09/06/2025 10:36 AM EDT Patient call requires triage: Symptoms patient is presenting: jaw, swollen, trouble chewing. Whacked his face on a piece on beam while cleaning a chicken coop. How long has patient had these symptoms?: 6 days For ALL patients calling to schedule any appointment (routine, sick visit, follow up, consult, etc.) in the outpatient setting please ask the following questions: Do you have fever of higher than 101, sore throat with difficulty swallowing or severe shortness ofbreath? no If YES to any of these above symptoms, send a message to triage and do not book. Red dot. If no, an audio or video visit should be booked. Have you had close contact with someone with Coronavirus in the last 14 days? no Have you traveled abroad? no Have you traveled recently to another state outside of [place], [place], [place], [place], [place], [place], [place]? no o If yes, did you quarantine for 14 days or have a negative covid test? no If yes to any of the above, patient is not to be scheduled in office until after 14 day quarantine or negative covid test. If pain or injury related was it due to an accident at work or from a motor vehicle accident? If yes, date of accident/Injury: No If yes, gather 3rd democrat insurance information Third Libertarian Information: not applicable PCP: Cinthya Arguelles MD Payor: MEDICARE / Plan: MEDICARE PART A & B / Product Type: Medicare / documented in this encounter Plan of Treatment Upcoming Encounters Date Type Department Care Team (Late st Contact Info) Description 10/03/2025 10:30 AM EST Office Visit Orthopedic Surgery - [address] [phone] Carson Montaño, JANNETH [address] [place] [address] 10/16/2025 8:30 AM EST Office Visit Adult Medicine [address] [phone] Cinthya Arguelles MD [address] [place] [address] 04/19/2026 8:00 AM EDT Office Visit Adult Medicine [address] [phone] Cinthya Arguelles MD [address] [place] [address] documented as of this encounter Visit Diagnoses Not on filedocumented in this encounter Care Teams Telecommunications Technician Relationship Specialty Start Date End Date Cinthya Arguelles MD [address] [place], [place] PCP - General Internal Medicine 07/21/22 documented as of this encounter
--- NOTE | 2025-09-08 19:41 | ED_ITS ---
HPI - General Adult General Chief complaint: Skin/Abscess/Foreign Body Stated complaint: Injury Time Seen by Provider: 09/08/25 19:41 History of Present Illness ED Provider: [place] ARGUELLES narrative: The patient is a 35-year-old male with a history of behavioral health issues who lives with a environmental adviser. The patient is connected with a [email or web address] and works at the [employer] in [place]. The patient is here with his environmental adviser. 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 It is not clear if this was a severe injury. Four days ago, on Thursday, the patient had an appointment with his behavioral health providers at [facility] and mentioned the injury and some possible left-sided facial pain. The staff at [facility] told the patient he needed to be seen at the patient's primary care doctor's office. Today they had an appointment with the patient's PCP at [facility]. Apparently the appointment was late in the day and by the time the patient was seen by a provi beverly the x-ray technicians had gone home. The patient and his environmental adviser were therefore advised to come to the emergency room instead. The patient says that he is not really having a great deal of pain at the moment. 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 He does not seem to have a very wide excursion of his jaw but the patient says that this is baseline for him. He indicates possibly having some mild pain on the left side of his face but he says he does not have any severe pain. He does not feel that he has any significant swelling. There have been no fever, sweats, chills. Related Data Allergies Allergy/AdvReac Type Severity Reaction Status Date / Time No Known Allergies Allergy Verified 09/08/25 17:01 Review of Systems Review of Systems: Yes all other systems are reviewed and are negative [facility] Social History Social History Advance Directives: No Advance Directives Information Provided: No Physical Exam ED Vital Signs: Vital Signs - 24 hr 09/08/25 16:59 Temperature 99 F Pulse Rate 108 H Respiratory Rate 20 Blood Pressure 164/92 H Pulse Oximetry 99 Oxygen Delivery Method Room Air BMI result Body Mass Index 36.0 Const Other: The patient is a 35-year-old male who was awake and alert, pleasant and cooperative. He does not appear obviously ill or toxic. HENMT Other: There is no obvious facial swelling or asymmetry. I believe there is some chronic malocclusion of the patient's jaw but the patient says that his upper and lower teeth are coming together in their usual alignment. He does not seem to have a very wide excursion of his jaw but he does not feel that this is any different from his baseline. He does not really seemed to have any significant tenderness with the palpation of the left mandible. I do not see any intraoral swelling or any dental injury. Eyes Other: Pupils are round equal, conjunctivae are clear, extraocular movements intact Neck Other: No posterior C-spine tenderness. Moving his neck easily without pain. C-spine is clinically clear. Resp Effort & Inspection: normal respiratory effort Auscultation: clear to auscultation bilaterally Cardio Rate: regular rate Rhythm: regular rhythm Heart sounds: S1 normal heart sound present and S2 normal heart sound present Skin Other: There was no significant soft tissue swelling the face. There is a small patch of erythematous skin just below the left eye but the patient says this is chronic. Also the patient's environmental adviser who was with him in the emergency room does not feel that the appearance of the patient's face is any different from baseline. Neuro Other: The patient is awake and alert seems to have a normal mental status. Seems appropriately oriented. Cranial nerves seem intact. He moves his extremities symmetrically and appropriately. He seems grossly neurologically intact. Medical Decision Making Medical Decision Making [facility] Narrative: The patient is a very pleasant 35-year-old who sustained an injury to the left side of his face 1 week ago. The patient has a number of behavioral health issues and is very involved with [email or web address]. He sustained the injury to his face had a [employer] facility. He mentioned the injury to service that staff on Thursday. The service that staff referred him to his primary care doctor's office. Today his primary care doctor's office referred him to the emergency room because there x-ray technicians had gone home. My overall impression is that the patient does not have a severe injury. There was no fracture on our facial bone x-rays today. Clinically I do not have a very high suspicion for an occult fracture. I do not appreciate any signs of a facial infection or other significant process. The patient and his environmental adviser were reassured. I am advising them that if things seem to worsen in any way they should return to the emergency room for additional evaluation. Discharge Plan Discharge Clinical Impression: Contusion of face Patient Disposition: Home, Self-Care Instructions: Facial Contusion (ED) Additional Instructions: I think you may have sustained a bruise to the left side of your face (contusion is another word for a bruise). I do not think there is a fracture present. You may use ibuprofen and acetaminophen as needed for discomfort. If you have worsening symptoms please return to the emergency room for additional evaluation. Referrals: Cinthya Arguelles MD [Primary Care Provider, Family Practice] Print Language: Faroese
[2025-09-08 20:03] VITALS: BP 0/0; PULSE 0; RESP 0; TEMP -17.7; TEMP 0; O2SAT 0
== END 2025-09-08 20:04 | disposition home or self-care (01) ==
PROVIDERS: Emergency Provider Emergency Medicine; PCP Family Medicine
DX: S00.83XA Contusion of other part of head, initial encounter (principal); W22.09XA Striking against other stationary object, initial encounter; Y93.89 Activity, other specified; Y92.72 Chicken coop as the place of occurrence of the external cause; Y99.0 Civilian activity done for income or pay
CPT/HCPCS: 70150; 99282; 99283

== ENCOUNTER 2025-09-15 06:46 | Outpatient (REF) | payer MEDICARE, MEDICAID, OTHER, SELFPAY ==
--- OUTSIDE RECORDS SUMMARY | 2025-09-15 06:50 | XMS_ITS | Encounter Summary ---
Author Organization [facility] Address [address] [place] [address] Care Team Providers Care Machine Operator Cane Cutter Name Role Phone Cinthya Arguelles MD Primary Care Pr ovider Encounter Details Date Type Department Care Team (Late Contact Info) Description 09/11/2025 Telephone Adult Medicine [address] [phone] Najma Beach RN Social History Tobacco Use Types Packs/Day Years [...] on file documented as of this encounter Plan of Treatment Upcoming Encounters Date Type Department Care Team (Late Contact Info) Description 10/03/2025 10:30 AM EST Office Visit Orthopedic Surgery - [place] [phone] [phone] Carson Montaño DPM [address] [address] 10/16/2025 8:30 AM EST Office Visit Adult Medicine [address] [phone] Cinthya Arguelles MD [address] [place] [address] 04/19/2026 8:00 AM EDT Office Visit Adult Medicine [facility] [address] [place] [address] Cinthya Arguelles MD [address] [place], [place] documented as of this encounter Visit Diagnoses Not on filedocumented in this encounter Care Teams Machine Operator Cane Cutter Relationship Specialty Start Date End Date Cinthya Arguelles MD [address] [place], [place] PCP - General Internal Medicine 07/21/22 documented as of this encounter
--- OUTSIDE RECORDS SUMMARY | 2025-09-15 06:50 | XMS_ITS | Clinical Summary ---
Author Organization [facility] [employer] Address [address] [place] [address] Phone Care Team Providers Care Dude Ranch Manager Name Role Phone Cinthya Arguelles MD [...] complication, without long-term current use of insulin (CMS/[facility] V24, CMS/HCC V28) Use to check glucose [...] retinopathy of both eyes 02/02/2023 Overview (08/29/2024): [facility] [employer] [facility] eye exam om 01/30/23 No diabetic retinopathy. [...] not crush or chew. Bipolar affective disorder (CMS/[facility] V24, CMS/HCC V28) 09/04/2011 Assessment & Plan [...] Encounters Date Type Department Care Team Description 09/11/2025 Telephone Adult Medicine [address] [phone] Najma Beach RN 09/06/2025 Nurse Triage Adult Medicine [address] [phone] Cinthya Arguelles MD 08/18/2025 Telephone Adult Medicine [address] [phone] Maryjo Colby MA 07/03/2025 11:00 AM EDT Consult Orthopedic Surgery - [address] [phone] Carson Montaño, JANNETH Type 2 diabetes mellitus without complication, without long-term current use of insulin ([facility] V24, [facility] V28) (Primary Dx); Pain in toes of [...] complication, not stated as uncontrolled Bipolar affective ([facility] V 24, [facility] V28) DX:Bipolar affective ([facility]) Bipolar affective disorder ( [facility] V24, [facility] V28) 09/04/2011 DX:Bipolar affective disorde r ([facility]) Asthma 06/04/2011 DX:Asthma Family History Medical History [...] AM EST Office Visit Orthopedic Surgery - [place] [address] [phone] Carson Montaoñ, JANNETH [address] [address] 10/16/2025 8:30 AM EST Office Visit Adult Medicine [address] [phone] Cinthya Arguelles MD [address] [place] [address] 04/19/2026 8:00 AM EDT Office Visit Adult Medicine [address] [phone] Cinthya Arguelles MD [address] [place] [address] Health Maintenance Due Date Last Done Comments [...] LAB CHEMISTRY METHOD 04/14/2025 12:16 PM EDT [facility] Microalb, Ur 5.8 0.0 - 29.0 mg/L LAB CHEMISTRY METHOD 04/14/2025 12:16 PM EDT [facility] Microalb/Creat Ratio 4 <30 mg/g creat LAB CHEMISTRY METHOD 04/14/2025 12:16 PM T [facility] Urine Urine specimen obtained by clean catch procedure / Unknown Non-blood Collection / Unknown 04/14/2025 8:43 AM EDT 04/14/2025 8:43 AM EDT us Cindy CEDEÑO LAB URINE ORDERABLES Final Re sult [facility] [address] [place] [address], [place] [phone] * Lipid panel with reflex to direct LDL (04/13/2025 8:45 AM EDT) Cholesterol 156 0 - 200 mg/dL LAB CHEMISTRY METHOD 04/13/2025 12:42 PM EDT [facility] Triglycerides 118 0 - 150 mg/dL LAB CHEMISTRY METHOD 04/13/2025 12:42 PM EDT [facility] HDL 40 >=40 mg/dL LAB CHEMISTRY METHOD 04/13/2025 12:42 PM EDT [facility] LDL Calculated 92 0 - 100 mg/dL LAB CHEMISTRY METHOD 04/13/2025 12:42 PM EDT [facility] VLDL Cholesterol Tarun 23.6 mg/dL LAB CHEMISTRY METHOD 04/13/2025 12:42 PM EDT [facility] Non HDL Chol. (LDL+VLDL) 116 <145 mg/dL LAB CHEMISTRY METHOD 04/13/2025 12:42 PM EDT [facility] Chol/HDL Ratio 3.9 0.0 - 4.4 LAB CHEMISTRY METHOD 04/13/2025 12:42 PM EDT [facility] Blood Venous blood specimen / Unknown Venipuncture / Unknown 04/13/2025 8:45 AM EDT 04/13/2025 8:45 AM EDT us Cindy CEDEÑO LAB BLOOD ORDERABLES Final Re sult [facility] [address] [place] [address], [place] [phone] * Hemoglobin A1c (04/13/2025 8:45 AM EDT) [facility] Hemoglobin A1C 5.7 <6.5 % LAB CHEMISTRY METHOD 04/13/2025 6:43 PM EDT [facility] Mean Bld Glu Estim. 117 mg/dL LAB CHEMISTRY METHOD 04/13/2025 6:43 PM [facility] Blood Venous blood specimen / Unknown Venipuncture / Unknown 04/13/2025 8:45 AM EDT 04/13/2025 8:45 AM EDT us Cindy CEDEÑO LAB BLOOD ORDERABLES Final Re sult [facility] [address] [place] [address], * (ABNORMAL) Comprehensive metabolic panel (04/13/2025 8:45 AM EDT) [facility] Sodium 136 133 - 145 mmol/L LAB CHEMISTRY METHOD 04/13/2025 12:42 PM [facility] Potassium 4.2 3.5 - 5.5 mmol/L LAB CHEMISTRY METHOD 04/13/2025 12:42 PM [facility] Chloride 105 96 - 110 mmol/L LAB CHEMISTRY METHOD 04/13/2025 12:42 PM [facility] CO2 25 21 - 32 mmol/L LAB CHEMISTRY METHOD 04/13/2025 12:42 PM [facility] Anion Gap 6 3 - 11 LAB CHEMISTRY METHOD 04/13/2025 12:42 PM [facility] Glucose 130(H) 70 - 100 mg/dL LAB CHEMISTRY METHOD 04/13/2025 12:42 PM [facility] BUN 10 5 - 25 mg/dL LAB CHEMISTRY METHOD 04/13/2025 12:42 PM [facility] Creatinine 0.68(L) 0.70 - 1.30 mg/dL LAB CHEMISTRY METHOD 04/13/2025 12:42 PM [facility] eGFR 124 >=60 mL/min/1. 73m2 LAB CHEMISTRY METHOD 04/13/2025 12:42 PM [facility] Comment:Calculation based on the Chronic Kidney Disease Epidemiology Collaboration (CKD-EPI) equation refit without adjustment for race. BUN/Creatinine Ratio 14.7 LAB CHEMISTRY METHOD 04/13/2025 12:42 PM [facility] Calcium 9.4 8.5 - 10.5 mg/dL LAB CHEMISTRY METHOD 04/13/2025 12:42 PM [facility] AST (SGOT) 13 10 - 42 unit/L LAB CHEMISTRY METHOD 04/13/2025 12:42 PM [facility] ALT (SGPT) 27 10 - 60 unit/L LAB CHEMISTRY METHOD 04/13/2025 12:42 PM [facility] Alkaline Phosphatase 50 42 - 121 unit/L LAB CHEMISTRY METHOD 04/13/2025 12:42 PM [facility] Total Protein 7.4 6.0 - 8.0 g/dL LAB CHEMISTRY METHOD 04/13/2025 12:42 PM [facility] Albumin 3.9 3.2 - 5.0 g/dL LAB CHEMISTRY METHOD 04/13/2025 12:42 PM [facility] Total Bilirubin 0.3 0.0 - 1.4 mg/dL LAB CHEMISTRY METHOD 04/13/2025 12:42 PM [facility] Blood Venous blood specimen / Unknown Venipuncture / Unknown 04/13/2025 8:45 AM EDT 04/13/2025 8:45 AM EDT us Cindy CEDEÑO LAB BLOOD ORDERABLES Final Re sult [facility] [address] [place], [place] [address] [phone] * Depression Screening (04/07/2024) Depression Screening abstracted Historical Provider HEALTH MAINTENANCE Final Result * Diabetes Foot Exam (04/07/2024) Diabetes: Annual Foot Exam abstracted Historical Provider HEALTH MAINTENANCE Final Result * Hepatitis C Screening (01/13/2018) Pathologist [facility] Hepatitis C Screening abstracted Historical Provider HEALTH MAINTENANCE Final Result from Last 3 Months or Most Recently Relevant to Health Maintenance Insurance MEDICARE [place]ICAID [place] Care Teams Dude Ranch Manager Relationship Specialty Start Date End Date Cinthya Arguelles MD [address] [facility] [place] PCP - General Internal Medicine 07/21/22
--- OUTSIDE RECORDS SUMMARY | 2025-09-15 06:50 | XMS_ITS | Encounter Summary ---
Author Organization [facility] Address [address] [place] [address] Care Team Providers Care Rubber Mill Tender Name Role Phone Cinthya Arguelles MD Primary Care Pr ovider Reason for Visit * Reason Onset Date Comments Facial Swelling 09/06/2025 Encounter Details Date Type Department Care Team ([facility] st Contact Info) Description 09/06/2025 Nurse Triage Adult Medicine [address] [phone] Cinthya Arguelles MD [address] [place] [address] Social History Tobacco Use Types Packs/Day Years [...] as of this encounter Progress Notes * Sunita Marroquin RN - 09/12/2025 9:58 AM EST Call to ELLA aJck to call the office 3rd attempt unable to reach, message closed * Najma Beach RN - 09/07/2025 9:10 [...] - 09/06/2025 1:46 PM EDT [facility] from [employer] is returning call to triage * Stephanie Hendricks RN - 09/06/2025 12:53 PM EDT Returned service back is pts number also left vm to return call * Leilani Vázquez - 09/06/2025 12:40 PM EDT [facility] returned call * Najma Beach RN - [...] traveled recently to another state outside of [place], [place], [place], [place], [place], [place], [place]? no o If yes, did you [...] of accident/Injury: No If yes, gather 3rd alliance party insurance information Third Libertarian Information: not applicable PCP: Cinthya Arguelles MD Payor: MEDICARE / Plan: MEDICARE PART A & B / Product Type: Medicare / documented in this encounter Plan of Treatment Upcoming Encounters Date Type Department Care Team (Late st Contact Info) Description 10/03/2025 10:30 AM EST Office Visit Orthopedic Surgery - [place] [address] [phone] Carson Montaño, JANNETH [address] [address] 10/16/2025 8:30 AM EST Office Visit Adult Medicine [address] [phone] Cinthya Arguelles MD [address] [place] [address] 04/19/2026 8:00 AM EDT Office Visit Adult Medicine [address] [phone] Cinthya Arguelles MD [address] [place] [address] documented as of this encounter Visit Diagnoses Not on filedocumented in this encounter Care Teams Rubber Mill Tender Relationship Specialty Start Date End Date Cinthya Arguelles MD [address] [facility] [place] [address] PCP - General Internal Medicine 07/21/22 documented as of this encounter
[2025-09-15 08:05] LABS: Alanine Aminotransferase 16 U/L (0-40); Albumin Level 4.5 g/dL (3.5-5.0); Alkaline Phosphatase 48 U/L (39-117); Aspartate Amino Transferase 20 U/L (5-37); Total Protein 7.4 g/dL (6.5-8.0)
== END 2025-09-15 06:47 | disposition home or self-care (01) ==
LOC: HO.LABR 06:46
PROVIDERS: Visit Provider Clinical Nurse Specialist Psychiatric/Mental Health, Adult
DX: Z79.899 Other long term (current) drug therapy (principal)
CPT/HCPCS: 36415; 80076; 80164

== ENCOUNTER 2025-10-16 15:58 | Outpatient (REF) | payer MEDICARE, MEDICAID, SELFPAY ==
[2025-10-16 17:43] LABS: Alanine Aminotransferase 28 U/L (0-40); Albumin Level 4.7 g/dL (3.5-5.0); Alkaline Phosphatase 45 U/L (39-117); Aspartate Amino Transferase 21 U/L (5-37); Total Protein 7.2 g/dL (6.5-8.0)
--- OUTSIDE RECORDS SUMMARY | 2025-10-17 01:35 | XMS_ITS | Encounter Summary ---
Author Organization [facility] Address [address] [place] [address] Care Team Providers Care Forest Fire Fighter Name Role Phone Cinthya Arguelles MD Primary Care Pr ovider Encounter Details Date Type Department Care Team (Late Contact Info) Description 09/11/2025 Telephone Adult Medicine [address] [phone] Najma Beach RN Social History Tobacco Use [...] Department Care Team (Late Contact Info) Description 11/20/2025 2:45 PM EST Office Visit Orthopedic Surgery - [place] [address] [phone] Carson Montaño DPM [address] [address] 04/19/2026 8:00 AM EDT Office Visit Adult Medicine [address] [phone] Cinthya Arguelles MD [address] [place] [address] documented as of this encounter Visit Diagnoses Not on filedocumented in this encounter Care Teams Forest Fire Fighter Relationship Specialty Start Date End Date Cinthya Arguelles MD [address] [place], [place] PCP - General Internal Medicine 07/21/22 documented as of this encounter
--- OUTSIDE RECORDS SUMMARY | 2025-10-17 01:35 | XMS_ITS | Clinical Summary ---
Author Organization [facility] Risk Ident Address [address] [place] [address] Phone Care Team Providers Care Silk Hanger Name Role Phone Cinthya Arguelles MD Primary Care Pr ovider Allergies No known active allergies Medications divalproex (DEPAKOTE ER) 500 mg 24 hr tablet Take 1 Tablet by mouth 2 Times Daily. 3 Active divalproex (DEPAKOTE ER) 250 mg 24 hr tablet Take 1 Tablet by mouth 2 Times Daily. 3 Active blood glucose control, normal (OneTouch Ultra Control) solution Use to check FSG once a day 4 Active blood-glucose meter kit 1 Each by Does not apply route daily. Use once daily to check fasting blood sugar 4 Active freestyle (Prodigy Lancets) 28 gauge lancetsIndicatio ns:Type 2 diabetes mellitus without complication, without long-term current use of insulin (CMS/HCC V24, CMS/HCC V28) Use to check glucose daily 100 each 1 5 Active metoprolol succinate (TOPROL-XL) 25 mg 24 hr tabletIndication s:Sinus tachycardia Do not crush or chew.Take 25 mg by mouth daily. Take with 50mg for total of 75mg daily 90 tablet 1 5 Active Prodigy No Coding test stripIndications :Type 2 diabetes mellitus without complication, without long-term current use of insulin (CMS/HCC V24, CMS/HCC V28) USE DIRECTED TO CHECK FASTING BLOOD SUGAR ONCE DAILY. 100 strip 1 5 Active folic acid (FOLVITE) 1 mg tablet Take 1 tablet (1 mg total) by mouth every other day. 45 each 3 5 026 Active loratadine (CLARITIN) 10 mg tablet Take 1 tablet (10 mg total) by mouth 1 (one) time each day if needed for allergies. 30 each 2 5 Active hydrOXYzine HCL (ATARAX) 50 mg tablet 5 Active clozapine (CLOZARIL ORAL) Take by mouth. 7 Active ammonium lactate (AmLactin) 12 % lotion Apply topically if needed for dry skin. 400 g 2 5 026 Active ferrous sulfate 324 mg (65 mg elemental iron) EC tablet Take 1 tablet (324 mg total) by mouth 1 (one) time each day. 30 tablet 5 5 Active docusate sodium (COLACE) 100 mg capsuleIndicatio ns:Chronic anemia Take 1 capsule (100 mg total) by mouth 1 (one) time each day. 30 capsule 5 5 Active metoprolol succinate (TOPROL-XL) 50 mg 24 hr tabletIndication s:Primary hypertension,Sin us tachycardia Take 1 tablet (50 mg total) by mouth 1 (one) time each day in the morning. Take with 25mg tablet for total daily dose of 75mg daily 30 tablet 2 5 Active lisinopriL (PRINIVIL,ZESTRI L) 5 mg tabletIndication s:Primary hypertension Take 1 tablet (5 mg total) by mouth 1 (one) time each day in the morning. 30 tablet 2 5 Active omeprazole (PriLOSEC) [address] capsuleIndicatio ns:Gastroesophag eal reflux disease without esophagitis Take 1 capsule (20 mg total) by mouth 1 (one) time each day. 30 capsule 2 5 Active cholecalciferol (VITAMIN D-3) 50 mcg (2,000 unit) tabletIndication s:Vitamin D deficiency Take 2 tablets (4,000 Units total) by mouth 1 (one) time each day. 180 tablet 1 5 Active ciclopirox (PENLAC) 8 % solution Apply topically at bedtime. Apply over nail and surrounding skin. Apply daily over previous coat. After seven (7) days, may remove with alcohol and continue cycle. 6.6 mL 5 025 Active Problems Problem Noted Date Diagnosed Date [...] retinopathy of both eyes 02/02/2023 Overview (08/29/2024): [facility] eye exam om 01/30/23 No diabetic [...] need to continue to do so Orders: yue (Prodigy Lancets) 28 gauge lancets; Use to check glucose daily glucose blood test strip; Use as instructed Hemoglobin A1c; Future Seasonal allergies 06/04/2011 Class 2 severe obesity due t o excess calories with serious comorbidity and body mass index (BMI) of 35.0 to 35.9 in adult Encounters Date Type Department Care Team Description 09/11/2025 Telephone Adult [address] [phone] Najma Beach RN 09/06/2025 Nurse Triage Adult [address] [phone] Cinthya Arguelles MD 08/18/2025 Telephone Adult [address] [phone] Maryjo Colby MA from Last 3 Months Immunizations Immunization Administration [...] uncontrolled Bipolar affective ([facility] V 24, [facility] V28) DX:Bipolar affective ([facility]) Bipolar affective disorder ( [facility] V24, [facility] V28) 09/04/2011 DX:Bipolar affective disorde r ([facility]) Asthma 06/04/2011 DX:Asthma Family History [...] on file Sexual Orientation Not on file Last Filed Vital Signs Vital Sign Reading [...] Care Team (Late st Contact Info) Description 11/20/2025 2:45 PM EST Office Visit Orthopedic Surgery - [place] [address] [phone] Carson Montaño, JANNETH 175 [facility] [address] [place] [address] 04/19/2026 8:00 AM EDT Office Visit Adult Medicine [address] [phone] Cinthya Arguelles MD [address] [place] [address] Health Maintenance Due Date Last Done Comments [...] Laterality Modality Ultrasound us Provider [facility] [place] US PROCEDURES Final Result * Microalbumin creatinine urine ratio (04/14/2025 8:43 AM EDT) Creatinine, Urine 133.0 mg/dL LAB CHEMISTRY METHOD 04/14/2025 12:16 PM [facility] Microalb, Ur 5.8 0.0 - 29.0 mg/L LAB CHEMISTRY METHOD 04/14/2025 12:16 PM EDT [facility] Microalb/Creat Ratio 4 <30 mg/g creat LAB CHEMISTRY METHOD 04/14/2025 12:16 PM [facility] Urine Urine specimen obtained by clean catch procedure / Unknown Non-blood Collection / Unknown 04/14/2025 8:43 AM EDT 04/14/2025 8:43 AM EDT Cindy CEDEÑO LAB URINE ORDERABLES Final Re sult [facility] [address] [place] [address], [place] [phone] * Lipid panel with reflex to direct LDL (04/13/2025 8:45 AM EDT) Cholesterol 156 0 - 200 mg/dL LAB CHEMISTRY METHOD 04/13/2025 12:42 PM [facility] Triglycerides 118 0 - 150 mg/dL LAB CHEMISTRY METHOD 04/13/2025 12:42 PM T [facility] HDL 40 >=40 mg/dL LAB CHEMISTRY METHOD 04/13/2025 12:42 PM [facility] LDL Calculated 92 0 - 100 mg/dL LAB CHEMISTRY METHOD 04/13/2025 12:42 PM [facility] VLDL Cholesterol Tarun 23.6 mg/dL LAB CHEMISTRY METHOD [facility] Non HDL Chol. (LDL+VLDL) 116 <145 mg/dL LAB CHEMISTRY METHOD 04/13/2025 12:42 PM EDT [facility] Chol/HDL Ratio 3.9 0.0 - 4.4 LAB CHEMISTRY METHOD 04/13/2025 12:42 PM EDT [facility] Blood Venous blood specimen / Unknown Venipuncture / Unknown 04/13/2025 8:45 AM EDT 04/13/2025 8:45 AM EDT us Cindy CEDEÑO LAB BLOOD ORDERABLES Final Re sult Performing Organization Address [facility]/ZIP Co de Phone Number [facility] [address] [place] [address], [place] [phone] * Hemoglobin A1c (04/13/2025 8:45 AM EDT) Hemoglobin A1C 5.7 <6.5 % LAB CHEMISTRY METHOD 04/13/2025 6:43 PM EDT [facility] Mean Bld Glu Estim. 117 mg/dL LAB CHEMISTRY METHOD 04/13/2025 6:43 PM EDT [facility] Blood Venous blood specimen / Unknown Venipuncture / Unknown 04/13/2025 8:45 AM EDT 04/13/2025 8:45 AM EDT us Cindy CEDEÑO LAB BLOOD ORDERABLES Final Re sult Performing Organization Address City/[facility]/ZIP Co de Phone Number [facility] [address] [place] [address], [place] [phone] * (ABNORMAL) Comprehensive metabolic panel (04/13/2025 8:45 AM EDT) Sodium 136 133 - 145 mmol/L LAB CHEMISTRY METHOD 04/13/2025 12:42 PM EDT [facility] Potassium 4.2 3.5 - 5.5 mmol/L LAB CHEMISTRY METHOD 04/13/2025 12:42 PM EDT [facility] Chloride 105 96 - 110 mmol/L LAB CHEMISTRY METHOD 04/13/2025 12:42 PM [facility] CO2 25 21 - 32 mmol/L LAB CHEMISTRY METHOD 04/13/2025 12:42 PM [facility] Anion Gap 6 3 - 11 LAB CHEMISTRY METHOD 04/13/2025 12:42 PM [facility] Glucose 130(H) 70 - 100 mg/dL LAB CHEMISTRY METHOD 04/13/2025 12:42 PM [facility] BUN 10 5 - 25 mg/dL LAB CHEMISTRY METHOD 04/13/2025 12:42 PM [facility] Creatinine 0.68(L) 0.70 - 1.30 mg/dL LAB CHEMISTRY METHOD 04/13/2025 12:42 PM [facility] eGFR 124 >=60 mL/min/1. 73m2 LAB CHEMISTRY METHOD 04/13/2025 12:42 PM [facility] Comment:Calculation based on the Chronic Kidney Disease Epidemiology Collaboration (CKD-EPI) equation refit without adjustment for race. BUN/Creatinine Ratio 14.7 LAB CHEMISTRY METHOD 04/13/2025 12:42 PM [facility] Calcium 9.4 8.5 - 10.5 mg/dL LAB CHEMISTRY METHOD 04/13/2025 12:42 PM [facility] AST (SGOT) 13 10 - 42 unit/L LAB CHEMISTRY METHOD 04/13/2025 12:42 PM [facility] ALT (SGPT) 27 10 - 60 unit/L LAB CHEMISTRY METHOD 04/13/2025 12:42 PM [facility] Alkaline Phosphatase 50 42 - 121 unit/L LAB CHEMISTRY METHOD 04/13/2025 12:42 PM [facility] Total Protein 7.4 6.0 - 8.0 g/dL LAB CHEMISTRY METHOD 04/13/2025 12:42 PM [facility] Albumin 3.9 3.2 - 5.0 g/dL LAB CHEMISTRY METHOD 04/13/2025 12:42 PM EDT [facility] Total Bilirubin 0.3 0.0 - 1.4 mg/dL LAB CHEMISTRY METHOD 04/13/2025 12:42 PM EDT [facility] Blood Venous blood specimen / Unknown Venipuncture / Unknown 04/13/2025 8:45 AM EDT 04/13/2025 8:45 AM EDT Cindy CEDEÑO LAB BLOOD ORDERABLES Final Re sult [facility] [address] [place] [address], [place] [phone] * Depression Screening (04/07/2024) Pathologist [facility] Depression Screening abstracted Historical Provider MD HEALTH MAINTENANCE Final Result * Diabetes Foot Exam (04/07/2024) Pathologist [facility] Diabetes: Annual Foot Exam abstracted [facility] Provider HEALTH MAINTENANCE Final Result * Hepatitis C Screening (01/13/2018) Pathologist [facility] Hepatitis C Screening abstracted Historical Provider HEALTH MAINTENANCE Final Result from Last 3 Months or Most Recently Relevant to Health Maintenance Insurance [place]ICARE [place]ID [place] Care Teams Silk Hanger Relationship Specialty Start Date End Date Cinthya Arguelles MD [address] [place], [place] PCP - General Internal Medicine 07/21/22
== END 2025-10-16 15:59 | disposition home or self-care (01) ==
LOC: HO.LABR 15:58
PROVIDERS: PCP Clinical Nurse Specialist Psychiatric/Mental Health, Adult; Visit Provider Clinical Nurse Specialist Psychiatric/Mental Health, Adult
DX: Z13.89 Encounter for screening for other disorder (principal)
CPT/HCPCS: 36415; 80076; 80164